=== PATIENT | female | born 1995 | race Caucasian/White ===

== ENCOUNTER → 2020-06-22 | Outpatient (REF) | payer OTHER ==
[~2020-06-22] MED LIST: ACET50CA PO; BUTA1CAP PO; CYCL5TAB PO; PHEN-501 PO; REGL10TA6 PO; SULF1TAB93 PO; VENL150C43 PO
== END ==
LOC: M LAB REF 16:59
PROVIDERS: ATTEND Physician Assistant
DX: N39.0 Urinary tract infection, site not specified (principal)

== ENCOUNTER 2020-06-24 12:14 | Emergency (ER) | payer OTHER ==
[~2020-06-24] VITALS: Ht 170.2 cm; Wt 90.9 kg
[2020-06-24] MEDS ORDERED: diphenhydrAMINE 50MG/ML VIAL (J1200) IV STA (12:33)
[2020-06-24] MEDS ORDERED: SULF1TAB93 PO (12:37)
[2020-06-24] MEDS ORDERED: CYCL5TAB PO (12:37)
[2020-06-24] MEDS ORDERED: ACET50CA PO (12:37)
[2020-06-24] MEDS ORDERED: VENL150C43 PO (12:37)
[2020-06-24] MEDS ORDERED: PHEN-501 PO (12:37)
[2020-06-24] MEDS ORDERED: BUTA1CAP PO (12:37)
[2020-06-24] MEDS ORDERED: NS 1,000 ML IV ONE (12:45)
[2020-06-24] MEDS ORDERED: METOCLOPRAMIDE INJ 10MG/2ML VIAL (J2765 PER 1) IV ONE (12:45)
[2020-06-24] MEDS ORDERED: KETOROLAC 30 MG/ML 1ML VIAL IV ONE (12:45)
[2020-06-24] MEDS ORDERED: REGL10TA6 PO (13:49)
--- OUTSIDE RECORDS SUMMARY | 2020-06-24 13:54 | CCD | Continuity of Care Document ---
Author Author Jodie FRIEDMAN Organization Unknown Address [place] [address] Phone [phone] Care Team Providers Care Metal Spraying Machine Operator Name Role Phone Donya Dejesus D.O. AUTM [phone] Eduar Stanford AUTM [phone] [facility] AUTM Clark Mims MD AUTM [phone] Brigette Akhtar NP AUTM [phone] Problems Active Problems Provider Date Bipolar disorder SOPHIE Moreno Onset: 03/10/2020 Benign intracranial hypertension SOPHIE Moreno Onset: 03/10/2020 Social History Type Date Description Comments Sex Unknown ETOH Use Denies alcohol use Tobacco Use Start: Unknown Patient has never smoked Recreational Drug Use Denies Drug Use Sun Exposure Uses sunscreen Seat Belt/Car Seat Always uses seat belt Allergies, Adverse Reactions, Alerts Active Allergies Reaction Severity Comments Date Penicillins Hives 03/01/2020 Sumatriptan Hives, Nausea, headache 02/03 Amoxicillin 03/10/2020 Medications Active Medications SIG Qnty Indications Ordering Provide r Date Bactrim DS 800-160mg Tablets take one tablet by mouth every 12 hours for seven days 14tabs N39.0 Cesai HemphillOGurpreet 06/22/2020 Phenazopyridine HCL 200mg Tablets take one tablet by mouth every 8 hours for three days 9tabs N39.0 Cesia HemphillO. 06/22/2020 Venlafaxine HCL ER 150mg Caps ER 2 4HR 1 by mouth every day 90caps F31.9 Winifred Hemphill.O. 05/08 Acetazolamide ER 500mg Caps ER 12H R 4 tabs every 12 hrs as needed start 24-48 hrs before ascent, continue for 48 hrs at high altitude, longer if necessary Unknown Fioricet 50-300-40mg Capsules take one capsule every four hours by mouth as needed for headache. 42caps Winifred Hemphill.O. History Medications Ajovy 225mg/1.5ML Solution Auto-In ject one injector once a month in subcutaneous tissue 4.5ml G43.009 Winifred Hemphill.O. 04/06/2020 - 05/08/2020 Venlafaxine HCL 75mg Tablets 1 by mouth every day 90tabs F31.9 Winifred Hemphill.O. 04/06 - 05/08/2020 Amitriptyline HCL 25mg Tablets one tablet daily at bedtime 90tabs G93.2 Winifred Hemphill.O. 11/0 10/2019 - 04/06/2020 Venlafaxine HCL ER 37.5mg Caps ER 24HR 1 by mouth every day 90caps F31.9 Winifred Hemphill.O. - 04/06/2020 Immunizations Description No Information Available Vital Signs Date Vital Result Comment 06/22/2020 10:36am BP Systolic 124 mmHg BP Diastolic 74 mmHg Height 66.5 inches 5'6.50" Weight 211.00 lb BMI (Body Mass Index) 33.5 kg/m2 Heart Rate 93 /min Respiratory Rate 18 /min Body Temperature 98.8 F O2 % BldC Oximetry 98 % Taylor Body Weight 142 lb 05/08/2020 8:28am BP Systolic 122 mmHg BP Diastolic 72 mmHg Height 66.5 inches 5'6.50" Weight 203.25 lb BMI (Body Mass Index) 32.3 kg/m2 Heart Rate 95 /min Respiratory Rate 18 /min Body Temperature 98.9 F O2 % BldC Oximetry 99 % Taylor Body Weight 142 lb Results Test Acquired Date Facility Test Result H/L Range Note Inhouse Ua 06/22/2020 Inhouse Inhouse Leukocytes +++ Inhouse Nitrite neg Inhouse Urobilinogen + Inhouse Protein + Inhouse PH 7 Inhouse Hemoglobin neg Inhouse Specific [place] 1.010 Inhouse Ketones neg Inhouse Bilirubin neg Inhouse Glucose neg Laboratory test finding 06/22/2020 [place] [address] [phone] Urine Culture FULL REPORT IN L <SEE NOTE> Normal 1 1 FULL REPORT IN LAB NOTES (eC W and Medent). NO GROWTH CLINICAL SIGNIFICANCE 1 ORGANISM Procedures Description No Information Available Medical Devices Description No Information Available Encounters Type Date Location Provider Dx Diagnosis Office Visit 06/22/2020 10:20a [facility] SOPHIE Moreno N39.0 Urinary tract infection, sit e not specified Office Visit 05/08/2020 8:30a [facility] SOPHIE Moreno G93.2 Benign intracranial hyperten charanjit F31.9 Bipolar disorder, unspecifie d G43.009 Migraine w/o aura, not intra ctable, w/o status migrainosus L72.0 Epidermal cyst Office Visit 04/06/2020 10:20a [facility] SOPHIE Moreno G93.2 Benign intracranial hyperten charanjit F31.9 Bipolar disorder, unspecifie d G43.009 Migraine w/o aura, not intra ctable, w/o status migrainosus Office Visit 03/10/2020 9:40a [facility] SOPHIE Moreno G93.2 Benign intracranial hyperten charanjit F31.9 Bipolar disorder, unspecifie d Assessments Date Code Description Provider 06/22/2020 N39.0 Urinary tract infection, site no t specified SOPHIE Moreno 05/08/2020 G93.2 Benign intracranial hypertension SOPHIE Moreno 05/08/2020 F31.9 Bipolar disorder, unspecified [place] SOPHIE Gan 05/08/2020 G43.009 Migraine without aur a, not intractable, without status migrainosus SOPHIE Moreno 05/08/2020 L72.0 Epidermal cyst SOPHIE Moreno 04/06/2020 G93.2 Benign intracranial hypertension SOPHIE Moreno 04/06/2020 F31.9 Bipolar disorder, unspecified SOPHIE Moise 04/06/2020 G43.009 Migraine without aur a, not intractable, without status migrainosus SOPHIE Moreno 03/10/2020 G93.2 Benign intracranial hypertension SOPHIE Moreno 03/10/2020 F31.9 Bipolar disorder, unspecified SOPHIE Moise Plan of Treatment Future Appointment(s):* 08/07/2020 10:20 am - SOPHIE Moreno at [facility] Functional Status Description No Information Available Mental Status Description No Information Available Referrals Refer to Reason for Referral Status Appt Date Brigette Akhtar NP epidermal cysts which are in flamed to bilateral shoulders which are painful and she would like removed. She would like routine surveillance of moles as well. Closed [facility] [address], [address] [facility] [address] [place], [place] [id number] [phone] [facility]'s [place] dependant wi th history of Bipolar type one and having increased depression. looking to establish care. Sent [address] [place] [address] [id number] [phone] Clark Mims MD Jodie was diagnosed with be nign intracranial hypertension in 03/18/29 while in [place]. She had two failed LP to reduce intracranial hypertension while in [place], even with Fluoroscopy. She had papilledema in the right eye and has been left with a chronic right visual disturbance reported a peripheral black spots, light sensitivity and generalized cloudiness. Looking to establish care. Closed 03/22/2020 [facility] [address], [address] [place] [address] [phone] Eduar Stanford O., MD Jodie was diagnosed with be nign intracranial hypertension in 03/18/29 while in [place]. She had two failed LP to reduce intracranial hypertension while in [place], even with Fluoroscopy. She had pa pilledema in the right eye and has been left with a chronic right visual disturbance reported a peripheral black spots, light sensitivity and generalized cloudiness. Closed 04/20/2020 [facility] [address] [place] [address] [phone]
--- OUTSIDE RECORDS SUMMARY | 2020-06-24 13:55 | CCD | Continuity of Care Document ---
Author Author Jodie AWAD [facility] Organization Unknown Address [address] [place] [address] Phone [phone] Problems Description No Information Available Social History Type Date Description Comments Sex Unknown Allergies, Adverse Reactions, Alerts Description No Information Available Medications Description No Information Available Immunizations Description No Information Available Vital Signs Description No Information Available Results Description No Information Available Procedures Date Code Description Status 04/21/2020 40237 Psychiatric Diagnostic Evaluatio n Completed Medical Devices Description No Information Available Encounters Description No Information Available Assessments Date Code Description Provider 04/21/2020 F33.9 Major depressive disorder, recur rent, unspecified Sadie Awad LMSW 04/21/2020 F41.9 Anxiety disorder, unspecified Br malgorzata Awad LMSW Plan of Treatment No Information Available Functional Status Description No Information Available Mental Status Description No Information Available Referrals Description No Information Available
--- OUTSIDE RECORDS SUMMARY | 2020-06-24 13:55 | CCD | Continuity of Care Document ---
Author Author Jodie TRAORE [facility] Organization Unknown Address [address] [address] Phone [phone] Problems Description No Information Available Social History Type Date Description Comments Sex Unknown Allergies, Adverse Reactions, Alerts Description No Information Available Medications Description No Information Available Immunizations Description No Information Available Vital Signs Description No Information Available Results Description No Information Available Procedures Date Code Description Status 04/21/2020 80941 Psychiatric Diagnostic Evaluatio n Completed Medical Devices Description No Information Available Encounters Description No Information Available Assessments Date Code Description Provider 04/21/2020 F33.9 Major depressive disorder, recur rent, unspecified Sadie Contreras LMSW 04/21/2020 F41.9 Anxiety disorder, unspecified Br malgorzata Contreras LMSW Plan of Treatment Future Appointment(s):* 05/22/2020 2:00 pm - Fabiana Hernandez RN at [facility] * 06/12/2020 2:00 pm - NEHA Hull at [facility] * 05/29/2020 4:00 pm - NEHA Hull at [facility] Functional Status Description No Information Available Mental Status Description No Information Available Referrals Description No Information Available
--- OUTSIDE RECORDS SUMMARY | 2020-06-24 13:55 | CCD | Continuity of Care Document ---
Author Author Jodie WELLS M.D. Organization Unknown Address [address] [place] [address] Phone [phone] Care Team Providers Care Branch Service Specialist Name Role Phone Donya Dejesus DO AUTM [phone] Problems Description No Information Available Social History Type Date Description Comments Sex Unknown Allergies, Adverse Reactions, Alerts Description No Information Available Medications Active Medications SIG Qnty Indications Ordering Provide r Date Emgality 120mg/ml Solution Auto-In ject 2 injection (at same time) subcutaneous x 1 month; then 1 injection monthly 2ml Yazimn Wells M.D. 05/18/2020 History Medications Emgality (300 MG Dose) 100mg/ml Soln Prefill Syringe Yazmin Wells M.D. 1 - 05/18/2020 Immunizations Description No Information Available Vital Signs Description No Information Available Results Description No Information Available Procedures Date Code Description Status 05/26/2020 08811 Magnetic Resonance Angiogtaphy H ead W/O Contrast Material(S) Completed 05/26/2020 85604 Magnetic Resonance Angiogtaphy H ead W/O Contrast Material(S) Completed 05/09/2020 85209 Nerve Conduction 13+ Studies Com pleted 05/09/2020 88864 Needle Electromyogra phy Non Extremity Done With Nerve Conduction Completed 05/09/2020 32375 Needle Electromyography Complete , Five Or More Muscles Studied Completed 05/09/2020 19766 Needle Electromyography Complete , Five Or More Muscles Studied Completed 04/24/2020 59635 MRI Spine Cervical W/O Contrast Completed 04/24/2020 69510 MRI Spine Cervical W/O Contrast Completed 04/24/2020 12529 MRI Brain W/O Contrast Completed 04/24/2020 06751 MRI Brain W/O Contrast Completed 04/24/2020 52781 Magnetic Resonance Angiography N nav W/O Contrast Materials Completed 04/24/2020 93359 Magnetic Resonance Angiography N nav W/O Contrast Materials Completed 04/24/2020 98475 Magnetic Resonance Angiogtaphy H ead W/O Contrast Material(S) Completed 04/24/2020 75856 Magnetic Resonance Angiogtaphy H ead W/O Contrast Material(S) Completed Medical Devices Description No Information Available Encounters Type Date Location Provider Dx Diagnosis Office Visit 05/18/2020 9:30a [place] M.[place]. R42 Dizziness and giddiness G43.809 Other migraine, not intracta ble, without status migrainosus I95.1 Orthostatic hypotension G93.2 Benign intracranial hyperten charanjit H53.8 Other visual disturbances Office Visit 04/20/2020 12:30p [place] M.D. R42 Dizziness and giddiness G47.00 Insomnia, unspecified G43.809 Other migraine, not intracta ble, without status migrainosus M54.2 Cervicalgia R20.2 Paresthesia of skin G93.2 Benign intracranial hyperten charanjit H53.8 Other visual disturbances M62.9 Disorder of muscle, unspecif ied Assessments Date Code Description Provider 05/26/2020 R42 Dizziness and giddiness Tiffanie Mora M.D. 05/26/2020 R42 Dizziness and giddiness MRI 05/18/2020 R42 Dizziness and giddiness Yazmin amezcua M.D. 05/18/2020 G43.809 Other migraine, not intractable, without status migrainosus Yazmin Wells M.D. 05/18/2020 I95.1 Orthostatic hypotension Yazmin amezcua M.D. 05/18/2020 G93.2 Benign intracranial hypertension Yazmin Wells M.D. 05/18/2020 H53.8 Other visual disturbances Yazmin Wells M.D. 05/09/2020 G56.03 Carpal tunnel syndrome, bilatera l upper limbs Tiffanie Wells M.D. 05/09/2020 M54.2 Cervicalgia Tiffanie Russell, M.D . 05/09/2020 R20.2 Paresthesia of skin Tiffanie Russell, M.D. 05/09/2020 G56.01 Carpal tunnel syndrome, right up per limb Tiffanie Russell, M.D. 05/09/2020 G56.02 Carpal tunnel syndrome, left upp er limb Tiffanie Russell, M.D. 04/24/2020 G43.809 Other migraine, not intractable, without status migrainosus Tiffanie Russell, M.D. 04/24/2020 G43.809 Other migraine, not intractable, without status migrainosus MRI 04/24/2020 M54.2 Cervicalgia Tiffanie Russell, M.D . 04/24/2020 M54.2 Cervicalgia MRI 04/24/2020 R42 Dizziness and giddiness Tiffanie La tif, M.D. 04/24/2020 R42 Dizziness and giddiness MRI 04/24/2020 H53.8 Other visual disturbances Tiffanie Russell, M.D. 04/24/2020 H53.8 Other visual disturbances MRI 04/20/2020 R42 Dizziness and giddiness Yazmin L seven, M.D. 04/20/2020 G47.00 Insomnia, unspecified Yazmin Lat if, M.D. 04/20/2020 G43.809 Other migraine, not intractable, without status migrainosus Yazmin Russell, M.D. 04/20/2020 M54.2 Cervicalgia Yazmin Russell, M. D. 04/20/2020 R20.2 Paresthesia of skin Yazmin Russell , M.D. 04/20/2020 G93.2 Benign intracranial hypertension Yazmin Russell, M.D. 04/20/2020 H53.8 Other visual disturbances Yazmin Russell, M.D. 04/20/2020 M62.9 Disorder of muscle, unspecified Yazmin Wells M.D. Plan of Treatment Future Appointment(s):* 07/20/2020 8:45 am - Yazmin Wells M.D. at Main office - [place] Functional Status Description No Information Available Mental Status Description No Information Available Referrals Refer to Dr Reason for Referral Status Appt Date Tristin Azevedo M.D. LING - PSEUDOTUMOR CEREBRI Created [facility] Neuro-Ophthalmology Dept. Of Neurology-[address] [facility], [place] [address] [phone] Created
--- OUTSIDE RECORDS SUMMARY | 2020-06-24 13:55 | CCD | Continuity of Care Document ---
Author Author Jodie MILLIGAN Organization Unknown Address [address] [place] [address] Phone [phone] Care Team Providers Care Cardiology Nurse Practitioner Name Role Phone Donya Dejesus DO AUTM Problems Description No Information Available Social History Type Date Description Comments Sex Unknown Allergies, Adverse Reactions, Alerts Description No Information Available Medications Active Medications SIG Qnty Indications Ordering Provide r Date Emgality 120mg/ml Solution Auto-In ject 2 injection (at same time) subcutaneous x 1 month; then 1 injection monthly 2ml Yazmin Wells M.D. 05/18/2020 History Medications Emgality (300 MG Dose) 100mg/ml Soln Prefill Syringe Yazmin Wells M.D. 1 - 05/18/2020 Immunizations Description No Information Available Vital Signs Description No Information Available Results Description No Information Available Procedures Date Code Description Status 05/09/2020 68407 Nerve Conduction 13+ Studies Com pleted 05/09/2020 31738 Needle Electromyogra phy Non Extremity Done With Nerve Conduction Completed 05/09/2020 24585 Needle Electromyography Complete , Five Or More Muscles Studied Completed 05/09/2020 88529 Needle Electromyography Complete , Five Or More Muscles Studied Completed 04/24/2020 21837 MRI Spine Cervical W/O Contrast Completed 04/24/2020 60717 MRI Spine Cervical W/O Contrast Completed 04/24/2020 33404 MRI Brain W/O Contrast Completed 04/24/2020 47848 MRI Brain W/O Contrast Completed 04/24/2020 98509 Magnetic Resonance Angiography N nav W/O Contrast Materials Completed 04/24/2020 47262 Magnetic Resonance Angiography N nav W/O Contrast Materials Completed 04/24/2020 54251 Magnetic Resonance Angiogtaphy H ead W/O Contrast Material(S) Completed 04/24/2020 69366 Magnetic Resonance Angiogtaphy H ead W/O Contrast Material(S) Completed Medical Devices Description No Information Available Encounters Type Date Location Provider Dx Diagnosis Office Visit 05/18/2020 9:30a Main office - [place] Yazmin Wells M.D. R42 Dizziness and giddiness G43.809 Other migraine, not intracta ble, without status migrainosus I95.1 Orthostatic hypotension G93.2 Benign intracranial hyperten charanjit H53.8 Other visual disturbances Office Visit 04/20/2020 12:30p Main office - [place] Yazmin Wells M.D. R42 Dizziness and giddiness G47.00 Insomnia, unspecified G43.809 Other migraine, not intracta ble, without status migrainosus M54.2 Cervicalgia R20.2 Paresthesia of skin G93.2 Benign intracranial hyperten charanjit H53.8 Other visual disturbances M62.9 Disorder of muscle, unspecif ied Assessments Date Code Description Provider 05/18/2020 R42 Dizziness and giddiness Yazmin L seven, M.DGurpreet 05/18/2020 G43.809 Other migraine, not intractable, without status migrainosus Yazmin Russell, M.DGurpreet 05/18/2020 I95.1 Orthostatic hypotension Yazmin L seven, M.D. 05/18/2020 G93.2 Benign intracranial hypertension Yazmin Russell, M.DGurpreet 05/18/2020 H53.8 Other visual disturbances Yazmin Russell, M.D. 05/09/2020 G56.03 Carpal tunnel syndrome, bilatera l upper limbs Tiffanie Russell, M.D. 05/09/2020 M54.2 Cervicalgia Tiffanie Russell, M.D [...] M.D. 04/20/2020 M54.2 Cervicalgia Yazmin Russell, M. DGurpreet 04/20/2020 R20.2 Paresthesia of skin Yazmin Russell , M.DGurpreet 04/20/2020 G93.2 Benign intracranial hypertension Yazmin Russell, M.DGurpreet 04/20/2020 H53.8 Other visual disturbances Yazmin Russell, M.D. 04/20/2020 M62.9 Disorder of muscle, unspecified Yazmin Wells M.D. Plan of Treatment Future Appointment(s):* 07/20/2020 8:45 am - Yazmin Wells M.D. at Main office [facility] Functional Status Description No Information Available Mental Status Description No Information Available Referrals Refer to Reason for Referral Status Appt Date Tristin Azevedo M.D. LING - PSEUDOTUMOR CEREBRI Created [facility] Neuro-Ophthalmology Dept. Of Neurology-[address] [place] [address] [phone] Created
--- OUTSIDE RECORDS SUMMARY | 2020-06-24 13:55 | CCD | Continuity of Care Document ---
Author Author Jodie WELLS M.D. Organization Unknown Address [address] [place] [address] Phone [phone] Care Team Providers Care Stage Settings Painter Name Role Phone Donya Dejesus DO AUTM [...] Available Procedures Date Code Description Status 05/09/2020 37430 Nerve Conduction 13+ Studies Com pleted 05/09/2020 58785 Needle Electromyogra phy Non Extremity Done With Nerve Conduction Completed 05/09/2020 97853 Needle Electromyography Complete , Five Or More Muscles Studied Completed 05/09/2020 76601 Needle Electromyography Complete , Five Or More Muscles Studied Completed 04/24/2020 02675 MRI Spine Cervical W/O Contrast Completed 04/24/2020 71163 MRI Spine Cervical W/O Contrast Completed 04/24/2020 25577 MRI Brain W/O Contrast Completed 04/24/2020 71994 MRI Brain W/O Contrast Completed 04/24/2020 47840 Magnetic Resonance Angiography N nav W/O Contrast Materials Completed 04/24/2020 57142 Magnetic Resonance Angiography N nav W/O Contrast Materials Completed 04/24/2020 63506 Magnetic Resonance Angiogtaphy H ead W/O Contrast Material(S) Completed 04/24/2020 05182 Magnetic Resonance Angiogtaphy H ead W/O Contrast Material(S) Completed Medical Devices Description No Information Available Encounters Type Date Location Provider Dx Diagnosis Office Visit 05/18/2020 9:30a Main office - [place] Yazmin Wells M.D. R42 Dizziness and giddiness G43.809 Other migraine, not intracta ble, without status migrainosus I95.1 Orthostatic hypotension G93.2 Benign intracranial hyperten charanjit H53.8 Other visual disturbances Office Visit 04/20/2020 12:30p Main office - [place] Yazmin Wells M.D. R42 Dizziness and giddiness [...] 05/18/2020 I95.1 Orthostatic hypotension Yazmin L seven, M.DGurpreet 05/18/2020 G93.2 Benign intracranial hypertension Yazmin Russell, M.DGurpreet 05/18/2020 H53.8 Other visual disturbances Yazmin Russell, M.DGurpreet 05/09/2020 G56.03 Carpal tunnel syndrome, bilatera l upper limbs Tiffanie Russell, M.DGurpreet 05/09/2020 M54.2 Cervicalgia Tiffanie Russell, M.D Gurpreet 05/09/2020 R20.2 Paresthesia of skin Tiffanie Russell, M.DGurpreet 05/09/2020 G56.01 Carpal tunnel syndrome, right up per limb Tiffanie Russell, M.DGurpreet 05/09/2020 G56.02 Carpal tunnel syndrome, left upp er limb Tiffanie Russell, M.DGurpreet 04/24/2020 G43.809 Other migraine, not intractable, without [...] Yazmin Wells M.D. at Main office - [place] Functional Status Description No Information Available Mental Status Description No Information Available Referrals Refer to Dr Reason for Referral Status Appt Date Tristin Azevedo M.D. LING - PSEUDOTUMOR CEREBRI Created [facility] Neuro-Ophthalmology Dept. Of Neurology-[address] [place] [address] [phone] Created
--- OUTSIDE RECORDS SUMMARY | 2020-06-24 13:55 | CCD | Continuity of Care Document ---
Author Author Jodie RAUSCH RN Organization Unknown Address [address] [place] [address] Phone [phone] Care Team Providers Care Incident Response Specialist Name Role Phone Family Medicine [facility] AUTM Iza vailable Problems Description No Information Available Social History Type Date Description Comments Sex Unknown Allergies, Adverse Reactions, Alerts Active Allergies Reaction Severity Comments Date Penicillin G 05/26/2020 Amoxicillin 05/26/2020 Sumatriptan 05/26/2020 NKEA 05/26/2020 Lactose (Intolerance) 2020 Medications Active Medications SIG Qnty Indications Ordering Provide r Date Venlafaxine HCL ER 150mg Caps ER 24HR Unknown 05/09/2020 Butalbital/Acetaminophen/Caffeine 50-300-40mg Capsules Unknown 02/29/2020 Acetazolamide ER 500mg Caps ER 12H R 2 caps by mouth twice a day Unknown Tylenol Extra Strength 500mg Tablets Unknown History Medications Venlafaxine HCL 75mg Tablets Unknown 04/06/2020 - 05/05/2020 Amitriptyline HCL 25mg Tablets Unknown 03/10/2020 - 05/05/2020 Venlafaxine HCL ER 37.5mg Caps ER 24HR Unknown 03/10/2020 - 021 Immunizations Description No Information Available Vital Signs Date Vital Result Comment 05/26/2020 11:04am BP Systolic Sitting 127 mmHg BP Diastolic Sitting 83 mmHg Heart Rate 90 /min Body Temperature 98.9 F Oral Respiratory Rate 18 /min O2 % BldC Oximetry 100 % Weight 199.38 lb Weight 90.436 kg Height 67 inches 5'7" BMI (Body Mass Index) 31.2 kg/m2 BSA (Body Surface Area) 2.02 m2 Results Description No Information Available Procedures Date Code Description Status 04/21/2020 13167 Psychiatric Diagnostic Evaluatio n Completed Medical Devices Description No Information Available Encounters Description No Information Available Assessments Date Code Description Provider 05/16/2020 F33.9 Major depressive disorder, recur rent, unspecified Jeanine Wynn, [place] 05/16/2020 F41.9 Anxiety disorder, unspecified Th dave Wynn, [place] 04/21/2020 F33.9 Major depressive disorder, recur rent, unspecified Sadie Contreras LMSW 04/21/2020 F41.9 Anxiety disorder, unspecified Br malgorzata Contreras LMSW Plan of Treatment Future Appointment(s):* 06/27/2020 11:00 am - Wlofgang Oliva PA-C at [facility] * 06/26/2020 12:00 pm - NEHA Hull at [facility] Functional Status Description No Information Available Mental Status Description No Information Available Referrals Description No Information Available
--- OUTSIDE RECORDS SUMMARY | 2020-06-24 13:55 | CCD | Continuity of Care Document ---
Author Author Jodie WELLS M.D. Organization Unknown Address [address] [place] [address] Phone [phone] Care Team Providers Care Fermenter Champagne Name Role Phone Marek Vega AUTM [phone] Donya Dejesus DO AUTM Problems Description No Information Available Social History Type Date Description Comments Sex Unknown Allergies, Adverse Reactions, Alerts Description No Information Available Medications Description No Information Available Immunizations Description No Information Available Vital Signs Description No Information Available Results Description No Information Available Procedures Date Code Description Status 04/24/2020 11161 MRI Spine Cervical W/O Contrast Completed 04/24/2020 08696 MRI Spine Cervical W/O Contrast Completed 04/24/2020 71234 MRI Brain W/O Contrast Completed 04/24/2020 09178 MRI Brain W/O Contrast Completed 04/24/2020 06185 Magnetic Resonance Angiography N nav W/O Contrast Materials Completed 04/24/2020 05807 Magnetic Resonance Angiography N nav W/O Contrast Materials Completed 04/24/2020 58828 Magnetic Resonance Angiogtaphy H ead W/O Contrast Material(S) Completed 04/24/2020 78592 Magnetic Resonance Angiogtaphy H ead W/O Contrast Material(S) Completed Medical Devices Description No Information Available Encounters Type Date Location Provider Dx Diagnosis Office Visit 04/20/2020 12:30p [place] M.[place] R42 Dizziness and giddiness G47.00 Insomnia, unspecified G43.809 Other migraine, not intracta ble, without status migrainosus M54.2 Cervicalgia R20.2 Paresthesia of skin G93.2 Benign intracranial hyperten charanjit H53.8 Other visual disturbances M62.9 Disorder of muscle, unspecif ied Assessments Date Code Description Provider 04/24/2020 G43.809 Other migraine, not intractable, without [...] - Yazmin Wells M.D. at Main office [facility] * 05/09/2020 9:00 am - Tiffanie Wells M.D. at [facility] office [facility] Functional Status Description No Information Available Mental Status Description No Information Available Referrals Refer to Reason for Referral Status Appt Date Created
--- OUTSIDE RECORDS SUMMARY | 2020-06-24 13:55 | CCD | Continuity of Care Document ---
Author Author Jodie WELLS M.D. Organization Unknown Address [address] [place] [address] Phone [phone] Care Team Providers Care Mechanical Maintenance Instructor Name Role Phone Marek Vega AUTM [phone] Donya Dejesus DO AUTM Problems Description No Information Available Social History Type Date Description Comments Sex Unknown Allergies, Adverse Reactions, Alerts Description No Information Available Medications Description No Information Available Immunizations Description No Information Available Vital Signs Description No Information Available Results Description No Information Available Procedures Date Code Description Status 04/24/2020 56254 MRI Spine Cervical W/O Contrast Completed 04/24/2020 83305 MRI Spine Cervical W/O Contrast Completed 04/24/2020 44687 MRI Brain W/O Contrast Completed 04/24/2020 66291 MRI Brain W/O Contrast Completed 04/24/2020 36947 Magnetic Resonance Angiography N nav W/O Contrast Materials Completed 04/24/2020 98256 Magnetic Resonance Angiography N nav W/O Contrast Materials Completed 04/24/2020 60355 Magnetic Resonance Angiogtaphy H ead W/O Contrast Material(S) Completed 04/24/2020 15233 Magnetic Resonance Angiogtaphy H ead W/O Contrast Material(S) Completed Medical Devices Description No Information Available Encounters Type Date Location Provider Dx Diagnosis Office Visit 04/20/2020 12:30p [place] R42 Dizziness and giddiness G47.00 [...] Yazmin Wells M.D. at Main office - [place] Functional Status Description No Information Available Mental Status Description No Information Available Referrals Refer to Reason for Referral Status Appt Date Created
--- OUTSIDE RECORDS SUMMARY | 2020-06-24 13:55 | CCD | Continuity of Care Document ---
Author Jodie Miller Organization Unknown Address [address] [place] [address] Phone [phone] Care Team Providers Care Brazing Machine Setter Name Role Phone Marek Vega AUTM [phone] Donya Dejesus DO AUTM Problems Description No Information Available Social History Type Date Description Comments Sex Unknown Allergies, Adverse Reactions, Alerts Description No Information Available Medications Description No Information Available Immunizations Description No Information Available Vital Signs Description No Information Available Results Description No Information Available Procedures Description No Information Available Medical Devices Description No Information Available Encounters Type Date Location Provider Dx Diagnosis Office Visit 04/20/2020 12:30p Main office - [place] Yazmin Wells M.D. R42 Dizziness and giddiness G47.00 Insomnia, unspecified G43.809 Other migraine, not intracta ble, without status migrainosus M54.2 Cervicalgia R20.2 Paresthesia of skin G93.2 Benign intracranial hyperten charanjit H53.8 Other visual disturbances M62.9 Disorder of muscle, unspecif ied Assessments Date Code Description Provider 04/20/2020 R42 Dizziness and giddiness Yazmin L seven, M.DGurpreet 04/20/2020 G47.00 Insomnia, unspecified Yazmin Lat if, M.DGurpreet 04/20/2020 G43.809 Other migraine, not intractable, without status migrainosus Yazmin Russell, M.D. 04/20/2020 M54.2 Cervicalgia Yazmin Russell M. D. 04/20/2020 R20.2 Paresthesia of skin Yazmin Russell , M.DGurpreet 04/20/2020 G93.2 Benign intracranial hypertension Yazmin Russell, MJosselin 04/20/2020 H53.8 Other visual disturbances Yazmin Wells M.D. 04/20/2020 M62.9 Disorder of muscle, unspecified Yazmin Wells M.D. Plan of Treatment Future Appointment(s):* 07/20/2020 8:45 am - Yazmin Wells M.D. at [facility] * 05/09/2020 9:00 am - Tiffanie Wells M.D. at [facility] Functional Status Description No Information Available Mental Status Description No Information Available Referrals Description No Information Available
--- OUTSIDE RECORDS SUMMARY | 2020-06-24 13:55 | CCD | Continuity of Care Document ---
Author Author Jodie FRIEDMAN Organization Unknown [place] [address] Phone [phone] Care Team Providers Care Vp Site Name Role Phone Donya Dejesus D.O. AUTM Eduar Stanford AUTM [phone] [facility] AUTM Clark Mims MD AUTM [phone] Brigette Akhtar NP AUTM [phone] Problems Active Problems Provider Date Bipolar disorder [...] Date Venlafaxine HCL ER 150mg Caps ER 2 4HR 1 by mouth every day 90caps F31.9 Donya Dejesus D.O. 05/08 Acetazolamide ER 500mg Caps ER 12H R 4 tabs every 12 hrs as needed start 24-48 hrs before ascent, continue for 48 hrs at high altitude, longer if necessary Unknown Fioricet 50-300-40mg Capsules take one capsule every four hours by mouth as needed for headache. 42caps Cesia HemphillO. History Medications Ajovy 225mg/1.5ML Solution Auto-In ject one injector once a month in subcutaneous tissue 4.5ml G43.009 Cesia HemphillOGurpreet 04/06/2020 - 05/08/2020 Venlafaxine HCL 75mg Tablets 1 by mouth every day 90tabs F31.9 Winifred Hemphill.OGurpreet 04/06 - 05/08/2020 Amitriptyline HCL 25mg Tablets one tablet daily at bedtime 90tabs G93.2 Donya Dejesus D.O. 10/2019 - 04/06/2020 Venlafaxine HCL ER 37.5mg Caps ER 24HR 1 by mouth every day 90caps F31.9 Cesia HemphillOGurpreet - 04/06/2020 Immunizations Description No Information Available Vital Signs Date Vital Result Comment 05/08/2020 8:28am BP Systolic 122 mmHg BP Diastolic 72 mmHg Height 66.5 inches 5'6.50" Weight 203.25 lb BMI (Body Mass Index) 32.3 kg/m2 Heart Rate 95 /min Respiratory Rate 18 /min Body Temperature 98.9 F O2 % BldC Oximetry 99 % [place] Body Weight 142 lb 04/06/2020 10:34am BP Systolic 120 mmHg BP Diastolic 64 mmHg Height 66.5 inches 5'6.50" Weight 207.12 lb BMI (Body Mass Index) 32.9 kg/m2 Heart Rate 97 /min Respiratory Rate 18 /min Body Temperature 98.4 F O2 % BldC Oximetry 99 % [place] Body Weight 142 lb Results Description No Information Available Procedures Description No Information Available Medical Devices Description No Information Available Encounters Type Date Location Provider Dx Diagnosis Office Visit 05/08/2020 8:30a [facility] [place]HIE Lorenzana G93.2 Benign intracranial hyperten charanjit F31.9 Bipolar disorder, unspecifie d G43.009 Migraine w/o aura, not intra ctable, w/o status migrainosus L72.0 Epidermal cyst Office Visit 04/06/2020 10:20a [facility] SOPHIE Moreno G93.2 Benign intracranial hyperten charanjit F31.9 Bipolar disorder, unspecifie d G43.009 Migraine w/o aura, not intra ctable, w/o status migrainosus Office Visit 03/10/2020 9:40a [facility] SOPHIE Moreno G93.2 Benign intracranial hyperten charanjit F31.9 Bipolar disorder, unspecifie d Assessments Date Code Description Provider 05/08/2020 G93.2 Benign intracranial hypertension SOPHIE Moreno 05/08/2020 F31.9 Bipolar disorder, unspecified SOPHIE Moise 05/08/2020 G43.009 Migraine without aur a, not intractable, without status migrainosus SOPHIE Moreno 05/08/2020 L72.0 Epidermal cyst SOPHIE Moreno 04/06/2020 G93.2 Benign intracranial hypertension SPOHIE Moreno 04/06/2020 F31.9 Bipolar disorder, unspecified SOPHIE Moise 04/06/2020 G43.009 Migraine without aur a, not intractable, without status migrainosus SOPHIE Moreno 03/10/2020 G93.2 Benign intracranial hypertension SOPHIE Moreno 03/10/2020 F31.9 Bipolar disorder, unspecified Nh SOPHIE Gan Plan of Treatment Future Appointment(s):* 08/07/2020 10:20 am - SOPHIE Moreno at [facility] Functional Status Description No Information Available Mental Status Description No Information Available Referrals Refer to Reason for Referral Status Appt Date Brigette Akhtar NP epidermal cysts which are in flamed to bilateral shoulders which are painful and she would like removed. She would like routine surveillance of moles as well. Sent [facility] [address], [address] [facility] [address] [place] [address] [phone] Eduar Stanford O., MD Jodie was diagnosed with be nign intracranial hypertension in 03/18/29 while in [place]. She had two failed LP to reduce intracranial hypertension while in [place], even with Fluoroscopy. She had pa pilledema in the right eye and has been left with a chronic right visual disturbance reported a peripheral black spots, light sensitivity and generalized cloudiness. Patient Notified 04/20/2020 [facility] [address] [place], [place] [id number] [phone] [facility]'s point dependant wi th history of Bipolar type one and having increased depression. looking to establish care. Sent [address] [place] [address] [phone] Clark Mims MD Jodie was diagnosed with be nign intracranial hypertension in 03/18/29 while in [place]. She had two failed LP to reduce intracranial hypertension while in [place], even with Fluoroscopy. She had papilledema in the right eye and has been left with a chronic right visual disturbance reported a peripheral black spots, light sensitivity and generalized cloudiness. Looking to establish care. Closed 03/22/2020 [facility] [address], [address] [place] [address] [phone]
--- OUTSIDE RECORDS SUMMARY | 2020-06-24 13:55 | CCD | Continuity of Care Document ---
Author Author Jodie FRIEDMAN Organization Unknown Address [place] [address] Phone [phone] Care Team Providers Care Concrete Pointer Name Role Phone Donya Dejesus D.O. AUTM [phone] Eduar Stanford AUTM [phone] [facility] AUTM Clark Mims MD AUTM [phone] Problems Active Problems Provider Date Bipolar disorder [...] SIG Qnty Indications Ordering Provide r Date Ajovy 225mg/1.5ML Solution Auto-In ject one injector once a month in subcutaneous tissue 4.5ml G43.009 Cesia HemphillOGurpreet 04/06/2020 Venlafaxine HCL 75mg Tablets 1 by mouth every day 90tabs F31.9 Cesia HemphillOGurpreet 04/06 Acetazolamide ER 500mg Caps ER 12H R 4 tabs every 12 hrs as needed start 24-48 hrs before ascent, continue for 48 hrs at high altitude, longer if necessary Unknown Fioricet 50-300-40mg Capsules take one capsule every four hours by mouth as needed for headache. 42caps Donya Dejesus D.O. History Medications Amitriptyline HCL 25mg Tablets one tablet daily at bedtime 90tabs G93.2 Cesia HemphillO. 110 10/2019 - 04/06/2020 Venlafaxine HCL ER 37.5mg Caps ER 24HR 1 by mouth every day 90caps F31.9 Cesia HemphillO. - 04/06/2020 Immunizations Description No Information Available Vital Signs Date Vital Result Comment 04/06/2020 10:34am BP Systolic 120 mmHg BP Diastolic 64 mmHg Height 66.5 inches 5'6.50" Weight 207.12 lb BMI (Body Mass Index) 32.9 kg/m2 Heart Rate 97 /min Respiratory Rate 18 /min Body Temperature 98.4 F O2 % BldC Oximetry 99 % [place] Body Weight 142 lb 03/10/2020 9:45am BP Systolic 116 mmHg BP Diastolic 64 mmHg Height 66.5 inches 5'6.50" Weight 202.12 lb BMI (Body Mass Index) 32.1 kg/m2 Heart Rate 73 /min Respiratory Rate 18 /min Body Temperature 98.5 F O2 % BldC Oximetry 97 % [place] Body Weight 142 lb Results Description No Information Available Procedures Description No Information Available Medical Devices Description No Information Available Encounters Type Date Location Provider Dx Diagnosis Office Visit 03/10/2020 9:40a Family [facility] SOPHIE Moreno G93.2 Benign intracranial hyperten charanjit F31.9 Bipolar disorder, unspecifie d Assessments Date Code Description Provider 04/06/2020 G93.2 Benign intracranial hypertension SOPHIE Moreno 04/06/2020 F31.9 Bipolar disorder, unspecified SOPHIE Moise 04/06/2020 G43.009 Migraine without aur a, not intractable, without status migrainosus SOPHIE Moreno 03/10/2020 G93.2 Benign intracranial hypertension SOPHIE Moreno 03/10/2020 F31.9 Bipolar disorder, unspecified SOPHIE Moise Plan of Treatment Future Appointment(s):* 05/08/2020 8:30 am - SOPHIE Moreno at [facility] 04/06/2020 - SOPHIE Moreno* G93.2 Benign intracranial hypertension* Comments:* Continue with Diamox but will discontinue Amitriptyline. Take Fioricet as needed for abortive care of headaches. * Follow up:* 1 month * F31.9 Bipolar disorder, unspecified* New Medication:* Venlafaxine HCL 75 mg - 1 by mouth every day * Comments:* [facility] We will increase your Effexor from 37.5 mg to 75 mg. * G43.009 Migraine without aura, not intractable, without status migrainosus* New Medication:* Ajovy 225 mg/1.5ML - one injector once a month in subcutaneous tissue * Comments:* Ajovy given today which is injected once a month for prevention of migraines. Functional Status Description No Information Available Mental Status Description No Information Available Referrals Refer to Reason for Referral Status Appt Date Eduar Stanford O., MD Jodie was diagnosed with be nign intracranial hypertension in 03/18/29 while in [place]. She had two failed LP to reduce intracranial hypertension while in [place], even with Fluoroscopy. She had pa pilledema in the right eye and has been left with a chronic right visual disturbance reported a peripheral black spots, light sensitivity and generalized cloudiness. Patient Notified 04/20/2020 [facility] [address] [place] [address] [phone] [facility]'s point dependant [facility] history of Bipolar type one and having increased depression. looking to establish care. Sent [address] [place] [address] [phone] Clark Mims MD Jodie was diagnosed with [...] cloudiness. Looking to establish care. Closed 03/22/[address], [address] [place] [id number] [phone]
--- OUTSIDE RECORDS SUMMARY | 2020-06-24 13:55 | CCD | Continuity of Care Document ---
Author Author Jodie MILLIGAN Organization Unknown [place] [address] Phone [phone] Care Team Providers Care Assistant Grocery Name Role Phone Donya Dejesus DO AUTM [...] Available Procedures Date Code Description Status 05/26/2020 26887 Magnetic Resonance Angiogtaphy H ead W/O Contrast Material(S) Completed 05/26/2020 46257 Magnetic Resonance Angiogtaphy H ead W/O Contrast Material(S) Completed 05/09/2020 76197 Nerve Conduction 13+ Studies Com pleted 05/09/2020 03740 Needle Electromyogra phy Non Extremity Done With Nerve Conduction Completed 05/09/2020 84039 Needle Electromyography Complete , Five Or More Muscles Studied Completed 05/09/2020 35355 Needle Electromyography Complete , Five Or More Muscles Studied Completed 04/24/2020 67025 MRI Spine Cervical W/O Contrast Completed 04/24/2020 71692 MRI Spine Cervical W/O Contrast Completed 04/24/2020 67743 MRI Brain W/O Contrast Completed 04/24/2020 04477 MRI Brain W/O Contrast Completed 04/24/2020 77679 Magnetic Resonance Angiography N nav W/O Contrast Materials Completed 04/24/2020 08210 Magnetic Resonance Angiography N nav W/O Contrast Materials Completed 04/24/2020 90059 Magnetic Resonance Angiogtaphy H ead W/O Contrast Material(S) Completed 04/24/2020 43746 Magnetic Resonance Angiogtaphy H ead W/O Contrast Material(S) Completed Medical Devices Description No Information Available Encounters Type Date Location Provider Dx Diagnosis Office Visit 05/18/2020 9:30a [place] R42 Dizziness and giddiness G43.809 Other migraine, not intracta ble, without status migrainosus I95.1 Orthostatic hypotension G93.2 Benign intracranial hyperten charanjit H53.8 Other visual disturbances Office Visit 04/20/2020 12:30p [place] M.[place] R42 Dizziness and giddiness G47.00 [...] limbs Tiffanie Wells M.D. 05/09/2020 M54.2 Cervicalgia David Jett 05/09/2020 R20.2 Paresthesia of skin Tiffanie Russell, [...] Yazmin Wells M.D. at Main office - [place] Functional Status Description No Information Available Mental Status Description No Information Available Referrals Refer to Dr Reason for Referral Status Appt Date Tristin Azevedo M.D. LING - PSEUDOTUMOR CEREBRI Created [facility] Neuro-Ophthalmology Dept. Of Neurology[facility] [facility] [place] [address] [phone] Created
--- OUTSIDE RECORDS SUMMARY | 2020-06-24 13:55 | CCD | Continuity of Care Document ---
Author Author Jodie FRIEDMAN Organization Unknown [place] [address] Phone [phone] Care Team Providers Care Kitchen Stewardess Name Role Phone Donya Dejesus D.O. AUTM Eduar Stanford AUTM [phone] [facility] AUTM Clark Mims MD AUTM [phone] Problems Active Problems Provider Date Bipolar disorder [...] headache. 42caps Donya Dejesus D.O. History Medications Ajovy 225mg/1.5ML Solution Auto-In ject one injector once a month in subcutaneous tissue 4.5ml G43.009 Cesia HemphillO. 04/06/2020 - 05/08/2020 Venlafaxine HCL 75mg Tablets 1 by mouth every day 90tabs F31.9 Cesia HemphillOGurpreet 04/06 - 05/08/2020 Amitriptyline HCL 25mg Tablets one tablet daily at bedtime 90tabs G93.2 Cesia HemphillOGurpreet 11/0 10/2019 - 04/06/2020 Venlafaxine HCL ER 37.5mg Caps ER 24HR 1 by mouth every day 90caps F31.9 Donya Dejesus D.O. - 04/06/2020 Immunizations Description No Information Available Vital Signs Date Vital Result Comment 05/08/2020 8:28am BP Systolic 122 mmHg BP Diastolic 72 mmHg Height 66.5 inches 5'6.50" Weight 203.25 lb BMI (Body Mass Index) 32.3 kg/m2 Heart Rate 95 /min Respiratory Rate 18 /min Body Temperature 98.9 F O2 % BldC Oximetry 99 % [place] Body Weight 142 lb 04/06/2020 10:34am BP Systolic 120 mmHg BP Diastolic 64 mmHg Height 66.5 inches 5'6.50" Weight 207.12 lb BMI (Body Mass Index) 32.9 kg/m2 Heart Rate 97 /min Respiratory Rate 18 /min Body Temperature 98.4 F O2 % BldC Oximetry 99 % [place] Body Weight 142 lb Results Description No Information Available Procedures Description No Information Available Medical Devices Description No Information Available Encounters Type Date Location Provider Dx Diagnosis Office Visit 04/06/2020 10:20a [facility] SOPHIE Lorenzana G93.2 Benign intracranial hyperten charanjit F31.9 Bipolar disorder, unspecifie d G43.009 Migraine w/o aura, not intra ctable, w/o status migrainosus Office Visit 03/10/2020 9:40a [facility] SOPHIE Lorenzana G93.2 Benign intracranial hyperten charanjit [...] 08/07/2020 10:20 am - SOPHIE Moreno at [facility] 05/08/2020 - SOPHIE Moreno* G93.2 Benign intracranial hypertension * F31.9 Bipolar disorder, unspecified* New Medication:* Venlafaxine HCL ER 150 mg - 1 by mouth every day * Follow up:* 3 months * G43.009 Migraine without aura, not intractable, without status migrainosus * L72.0 Epidermal cyst* Referral:* Brigette Akhtar NP, Nurse Practitioner Functional Status Description No Information Available Mental Status Description No Information Available Referrals Refer to Reason for Referral Status Appt Date Brigette Akhtar NP epidermal cysts which are in flamed to bilateral shoulders which are painful and she would like removed. She would like routine surveillance of moles as well. Created [facility] [address], [address] [facility] [address] [place] [address] [phone] Eduar Stanford O., MD Jodie was diagnosed with be nign intracranial hypertension in 03/18/29 while in [place]. She had two failed LP to reduce intracranial hypertension while in [place], even with Fluoroscopy. She had pa pilledema in the right eye and has been left with a chronic right visual disturbance reported a peripheral black spots, light sensitivity and generalized cloudiness. Patient Notified 04/20/2020 [facility] [address] [place], [place] [id number] [phone] [facility]'s point dependant wi th history of Bipolar type one and having increased depression. looking to establish care. Sent [address] [place] [address] [phone] Clark Mims MD Jodie was diagnosed with be nign intracranial hypertension in 03/18/29 while in [place]. She had two failed LP to reduce intracranial hypertension while in [place], even with Fluoroscopy. She had papilledema in the right eye and has been left with a chronic right visual disturbance reported a peripheral black spots, light sensitivity and generalized cloudiness. Looking to establish care. Closed 03/22/2020 [facility] [address], [address] [place] [address] [phone]
--- OUTSIDE RECORDS SUMMARY | 2020-06-24 13:55 | CCD | Continuity of Care Document ---
Author Author Jodie OLIVA PADillonC Organization Unknown Address [address] [address] Phone [phone] Care Team Providers Care Forest Patrolman Name Role Phone Family Medicine [facility] AUTM Iza vailable Problems Description No Information [...] BSA (Body Surface Area) 2.02 m2 Results Test Acquired Date Facility Test Result H/L Range Note Med[facility] Toxassure Select 13 05/26/2020 Nidia hayden Summary Report (Summary) FINAL 1, 2 PDF . 1 {DIAGNOSIS: F33.9 F41.9~{ME DICATIONS/DECLARED: ACETAZOLAMIDE,ACETAMINOPHEN~{PRESCRIPTION INFO: 2 TOXASSURE SELECT 13 (MW) Test Result Flag Units Drug Present and Declared for Prescription Verification Butalbital PRESENT EXPECTED Test Result Flag Units Ref Range Creatinine 28 mg/dL >=20 Declared Medications: The flagging and interpretation on this report are based on the following declared medications. Unexpected results may arise from inaccuracies in the declared medications. Note: The testing scope of this panel includes these medications: Butalbital (Fioricet) Note: The testing scope of this panel does not include following reported medications: Acetaminophen Acetaminophen (Fioricet) Acetazolamide Caffeine (Fioricet) Venlafaxine For clinical consultation, please call . Procedures Date Code Description Status 04/21/2020 74472 Psychiatric Diagnostic Evaluatio n Completed Medical Devices Description No Information Available Encounters Description No Information Available Assessments Date Code Description Provider 05/26/2020 F33.9 Major depressive disorder, recur rent, unspecified Fabiana Hernandez, RN 05/26/2020 F41.9 Anxiety disorder, unspecified An alberto Hernandez, RN 05/16/2020 F33.9 Major depressive disorder, recur rent, unspecified Jeanine Wynn, [facility] 05/16/2020 F41.9 Anxiety disorder, unspecified Julio Wynn, [facility] 04/21/2020 F33.9 Major depressive disorder, recur rent, unspecified Sadie Contreras, [facility] 04/21/2020 F41.9 Anxiety disorder, unspecified Br malgorzata Contreras [facility] Plan of Treatment Future Appointment(s):* 06/27/2020 11:00 am - Wolfgang Oliva PA-C at [facility] * 06/26/2020 12:00 pm - NEHA Hull at [facility] Functional Status Description No Information Available Mental Status Description No Information Available Referrals Description No Information Available
--- OUTSIDE RECORDS SUMMARY | 2020-06-24 13:55 | CCD | Continuity of Care Document ---
Author Author Jodie FRIEDMAN Organization Unknown [place] [address] Phone [phone] Care Team Providers Care Veterinary Radiologist Name Role Phone Donya Dejesus D.O. AUTM [phone] Eduar Stanford AUTM [phone] [facility] AUTM [phone] Clark Mims MD AUTM [phone] Problems Active Problems Provider Date Bipolar disorder [...] F O2 % BldC Oximetry 99 % [place] Body Weight 142 lb 03/10/2020 9:45am BP Systolic 116 mmHg BP Diastolic 64 mmHg Height 66.5 inches 5'6.50" Weight 202.12 lb BMI (Body Mass Index) 32.1 kg/m2 Heart Rate 73 /min Respiratory Rate 18 /min Body Temperature 98.5 F O2 % BldC Oximetry 97 % [place] Body Weight 142 lb Results Description No Information Available Procedures Description No Information Available Medical Devices Description No Information Available Encounters Type Date Location Provider Dx Diagnosis Office Visit 04/06/2020 10:20a [facility] SOPHIE Lorenzana G93.2 Benign intracranial hyperten charanjit F31.9 Bipolar disorder, unspecifie d G43.009 Migraine w/o aura, not intra ctable, w/o status migrainosus Office Visit 03/10/2020 9:40a [facility] SOPHIE Moreno G93.2 Benign intracranial hyperten charanjit F31.9 Bipolar disorder, unspecifie d Assessments Date Code Description Provider 04/06/2020 G93.2 Benign intracranial hypertension SOPHIE Moreno 04/06/2020 F31.9 Bipolar disorder, unspecified [place] SOPHIE Gan 04/06/2020 G43.009 Migraine without aur a, not intractable, without status migrainosus SOPHIE Moreno 03/10/2020 G93.2 Benign intracranial hypertension SOPHIE Moreno 03/10/2020 F31.9 Bipolar disorder, unspecified [place] SOPHIE Gan Plan of Treatment Future Appointment(s):* 05/08/2020 8:30 am - SOPHIE Moreno at [facility] Functional Status Description No Information Available Mental Status Description No Information Available Referrals Refer to Reason for Referral Status Appt Date Eduar Stanford O., MD Jodie was diagnosed with be nign intracranial hypertension in 03/18/29 while in [place]. She had two failed LP to reduce intracranial hypertension while in [place], even with Fluoroscopy. She had pa pilledema in the right eye and has been left with a chronic right visual disturbance reported a peripheral black spots, light sensitivity and generalized cloudiness. Patient Notified 04/20/2020 [facility] [address], [place] [id number] [phone] [facility] [place] [facility] history of Bipolar type one and having increased depression. looking to establish care. Sent [address] [place] [address] [phone] Clark Mims MD Jodie was diagnosed with be nign intracranial hypertension in 03/18/29 while in [place]. She had two failed LP to reduce intracranial hypertension while in [place], even with Fluoroscopy. She had papilledema in the right eye and has been left with a chronic right visual disturbance reported a peripheral black spots, light sensitivity and generalized cloudiness. Looking to establish care. Closed 03/22/[address], [address] [place] [address] [phone]
--- OUTSIDE RECORDS SUMMARY | 2020-06-24 13:55 | CCD | Continuity of Care Document ---
Author Jodie Miller Organization Unknown Address [address] [place] [address] Phone [phone] Care Team Providers Care Fish Flipper Name Role Phone Marek Vega AUTM [phone] Donya Dejesus DO AUTM Problems Description No [...] Office Visit 04/20/2020 12:30p Main office - [place] Yazmin Wells M.D. R42 Dizziness and giddiness [...] 8:45 am - Yazmin Wells M.D. at [facility] * 05/09/2020 9:00 am - Tiffanie Wells M.D. at [facility] Functional Status Description No Information Available Mental Status Description No Information Available Referrals Description No Information Available
--- OUTSIDE RECORDS SUMMARY | 2020-06-24 13:55 | CCD | Continuity of Care Document ---
Author Author Jodie WELLS M.D. Organization Unknown Address [address] [place] [address] Phone [phone] Care Team Providers Care Machine Tailer Name Role Phone Marek Vega AUTM [phone] Donya Dejesus DO AUTM Problems Description No Information Available Social History Type Date Description Comments Sex Unknown Allergies, Adverse Reactions, Alerts Description No Information Available Medications Description No Information Available Immunizations Description No Information Available Vital Signs Description No Information Available Results Description No Information Available Procedures Description No Information Available Medical Devices Description No Information Available Encounters Description No Information Available Assessments Description No Information Available Plan of Treatment Future Appointment(s):* 07/20/2020 8:45 am - Yazmin Wells M.D. at [facility] * 05/09/2020 9:00 am - Tiffanie Wells M.D. at [facility] Functional Status Description No Information Available Mental Status Description No Information Available Referrals Description No Information Available
--- OUTSIDE RECORDS SUMMARY | 2020-06-24 13:55 | CCD ---
Author Author Clark Mims MD [facility] Organization Clark Mims MD [facility] Address [address] [address] Phone Care Team Providers Care Respiratory Practitioner Name Role Phone Prasanna SHEA, SHAWNA, Clark Castillo Unavailable [phone] Reason for Referral No Reason for Referral Recorded Problems Includes: Active, inactive, and resolved Problems All Visits Onset Date - Time Resolved Date - Time Provider Co ndition Status Idiopathic Intracranial Hypertension (Pseudotumor Cerebri) 1 05/22/2019 - 12:00AM Clark Mims MD, FACS Active Plan of Treatment Pending Tests Order Diagnosis Results Due Ordering Provi jonna Testing Ordered - OCT OCT DISC Benign intracranial hypertension 09/18/20 Clark Mims MD, FACS Testing Ordered - Visual Field Visual Field 120 Benign in tracranial hypertension 09/18/20 Clark Mims MD, FACS Future Appointments Date Time Location Provider VISUAL FIELD 120 08/09/2020 9:30AM Clark Mims MD [facility] OCT DISC 08/09/2020 9:40AM Clark Mims MD [facility] 6 Month Follow-Up 09/08/2020 10:00AM [facility] Clark Childers MD, FACS Assessments Includes: Assessments for all patient encounters Findings Encounter Date Idiopathic intracranial hypertension TRIAGE NON URGENT with Clark Mims MD, FACS 06/21/2020 Idiopathic intracranial hypertension NEW PATIENT WITH REFERRAL with Clark Mims MD, FACS 03/22/2020 Instructions Instructions not supported for this document typeNo Instructions Recorded Medical Equipment - Implanted Devices Includes: Current and historical DevicesNo Medical Equipment Recorded Medications Includes: Current and historical Medications Current Medications (continue as prescribed) Venlafaxine HCl 37.5 MG Oral Tablet 03/22/2020 Prov ider: Diagnosis: Fioricet 30-300-25 Oral Tablet 03/22/2020 Provider: Diagnosis: acetaZOLAMIDE ER 500 MG Oral Capsule Extended Release 12 Christiana r 03/22/2020 Provider: Diagnosis: Past Medications on file Amitriptyline 25 MG Oral Tablet 03/22/2020 - 06/21/2020 Prov ider: Diagnosis: Acetazolamide 2000 MG Oral Tablet 03/22/2020 - 03/22/2020 Pr ovider: Diagnosis: Medications Administered Includes: Administered Medications in patient's chartNo Administered Medications Recorded Vital Signs Includes: Vital Signs from 06/21/2019 through 06/21/2020No Vital Signs Recorded For Specified Dates Results Includes: Results from 06/21/2019 through 06/21/2020No Results Recorded For Specified Dates History of Present Illness History of Present Illness not supported for this document typeNo History of Present Illness Recorded Social History Description Last Updated Tobacco non-user 06/21/2020 No tobacco use 06/21/2020 Not using alcohol 06/21/2020 Not using drugs 06/21/2020 Smoking status : Never smoker 06/21/2020 Procedures and Surgical History Includes: Procedures from 06/21/2019 through 06/21/2020 Procedures Code Diagnosis Performing Provider Service Location Service Date Intermediate Eye Exam Established Patient 66530 Benign intracranial hypertension Clark Mims MD, FACS 06/21/2020 Medical Eye Exam 07115 Benign intracranial hypertensio n Clark Mims MD, FACS Clark Mims MD [facility] 03/22/2020 Surgical History Last Updated No surgical / procedural history 06/21/2020 Medical History Includes: Medical History in patient's chart Description Last Updated No recent change in medical history 06/21/2020 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, Anxiety, Depression, Insomnia, 03/22/2020 Family History Includes: Family History in patient's chart Description Last Updated Maternal history of family history of cancer Review of Systems Review of Systems not supported for this document typeNo Review of Systems Recorded Mental Status Mental Status not supported for this document type Description Oriented to time, place, and person Anxiety Functional Status Functional Status not supported for this document typeNo Functional Status Recorded Physical Exam Physical Exam not supported for this document typeNo Physical Exam Recorded Immunizations Includes: Immunizations in patient's chartNo Immunizations Recorded Allergies Includes: Active, inactive, and resolved Allergies Substance Type Reaction Onset Date - Time Resolved Date - Ti me Status SUMAtriptan Succinate Allergy 03/22/2020 - 12:55PM Active Penicillins Allergy 03/22/2020 - 12:55PM Act dean Amoxicillin Allergy 03/22/2020 - 12:55PM Act dean Encounters Includes: Encounters from 06/21/2019 through 06/21/2020 Encounter Provider Location Date Check-In Time Check-Out Time D iagnosis TRIAGE NON URGENT Clark Mims MD, FACS Clark Mims MD [facility] 06/21/2020 8:34AM 9:05AM Idiopathic Intracran ial Hypertension (Pseudotumor Cerebri) NEW PATIENT WITH REFERRAL Clark Mims MD, FACS Clark Berman MD [facility] 03/22/2020 12:49PM 1:51PM Idiopathic Intracran ial Hypertension (Pseudotumor Cerebri) Insurance Includes: Active Insurance Policies Plan Name Member ID Group # Subscriber Relationship Effective Da pratima [address] [place] [address] [place] [id number] Jodie Stallworth Self Advance Directives Includes: Current Advance DirectivesNo Advance Directives Recorded Health Concerns Includes: Active Health ConcernsNo Active Health Concerns Recorded Goals Includes: Active GoalsNo Active Goals Recorded Interventions Includes: Interventions for active GoalsNo Interventions Recorded Evaluations & Outcomes Includes: Evaluations & Outcomes for active GoalsNo Outcomes Recorded
--- OUTSIDE RECORDS SUMMARY | 2020-06-24 13:55 | CCD ---
Author Author Clark Mims MD [facility] Organization Clark Mims MD [facility] Address [address] [address] Phone Care Team Providers Care Heart Nurse Name Role Phone Prasanna SHEA FACS, Clark Castillo Unavailable [phone] Reason for Referral No Reason for Referral [...] FIELD 120 08/09/2020 9:30AM Clark Mims MD [facility] OCT DISC 08/09/2020 9:40AM Clark Mims MD [facility] 6 Month Follow-Up 09/08/2020 10:00AM [facility] Clark Childers MD, FACS Assessments Includes: Assessments for all patient encounters Findings Encounter Date Idiopathic intracranial hypertension NEW PATIENT WITH REFERRAL with Clark Mims MD, FACS 03/22/2020 Instructions Instructions not supported for this document typeNo Instructions Recorded Medical Equipment - Implanted Devices Includes: Current and historical DevicesNo Medical Equipment Recorded Medications Includes: Current and historical Medications Current Medications (continue as prescribed) Amitriptyline 25 MG Oral Tablet 03/22/2020 Provider : Diagnosis: Venlafaxine HCl 37.5 MG Oral Tablet 03/22/2020 Prov ider: Diagnosis: Fioricet 30-300-25 Oral Tablet 03/22/2020 Provider: Diagnosis: acetaZOLAMIDE ER 500 MG Oral Capsule Extended Release 12 Christiana r 03/22/2020 Provider: Diagnosis: Past Medications on file Acetazolamide 2000 MG Oral Tablet 03/22/2020 - 03/22/2020 Pr ovider: Diagnosis: Medications Administered Includes: Administered Medications in patient's chartNo Administered Medications Recorded Vital Signs Includes: Vital Signs from 03/28/2019 through 03/28/2020No Vital Signs Recorded For Specified Dates Results Includes: Results from 03/28/2019 through 03/28/2020No Results Recorded For Specified Dates History of Present Illness History of Present Illness not supported for this document typeNo History of Present Illness Recorded Social History Description Last Updated No tobacco use 03/22/2020 Not using alcohol 03/22/2020 Not using drugs 03/22/2020 Smoking status : Never smoker 03/22/2020 Procedures and Surgical History Includes: Procedures from 03/28/2019 through 03/28/2020 Procedures Code Diagnosis Performing Provider Service Location Service Date Medical Eye Exam 27388 Benign intracranial hypertensio n Clark Mims MD, FACS Clark Mims MD [facility] 03/22/2020 Surgical History Last Updated No surgical / procedural history 03/22/2020 Medical History Includes: Medical History in patient's chart Description Last Updated Reported medical history Pseudo Tumor C erebri 2018, Anxiety, Depression, Insomnia, 03/22/2020 Family History Includes: Family History in patient's chart Description Last Updated Maternal history of family history of cancer 0 Review of Systems Review of Systems not [...] dean Amoxicillin Allergy 03/22/2020 - 12:55PM Act dena Encounters Includes: Encounters from 03/28/2019 through 03/28/2020 Encounter Provider Location Date Check-In Time Check-Out Time D iagnosis NEW PATIENT WITH REFERRAL Clark Mims MD, FACS Clark Berman MD [facility] 03/22/2020 12:49PM 1:51PM Idiopathic Intracran ial Hypertension (Pseudotumor Cerebri) Insurance Includes: Active Insurance Policies Plan Name Member ID Group # Subscriber Relationship Effective Da pratima 1 - [place] [id number] Jodie Stallworth Self Advance Directives Includes: Current Advance DirectivesNo Advance Directives Recorded Health Concerns Includes: Active Health ConcernsNo Active Health Concerns Recorded Goals Includes: Active GoalsNo Active Goals Recorded Interventions Includes: Interventions for active GoalsNo Interventions Recorded Evaluations & Outcomes Includes: Evaluations & Outcomes for active GoalsNo Outcomes Recorded
--- OUTSIDE RECORDS SUMMARY | 2020-06-24 13:55 | CCD | Continuity of Care Document ---
Author Author Jodie WELLS M.D. Organization Unknown Address [address] [place] [address] Phone [phone] Care Team Providers Care Diamond Cleaver Name Role Phone Marek Vega AUTM [phone] Donya Dejesus DO AUTM [phone] Problems Description No Information Available Social History Type Date Description Comments Sex Unknown Allergies, Adverse Reactions, Alerts Description No Information Available Medications Description No Information Available Immunizations Description No Information Available Vital Signs Description No Information Available Results Description No Information Available Procedures Date Code Description Status 05/09/2020 85571 Nerve Conduction 13+ Studies Com pleted 05/09/2020 17914 Needle Electromyogra phy Non Extremity Done With Nerve Conduction Completed 05/09/2020 95727 Needle Electromyography Complete , Five Or More Muscles Studied Completed 05/09/2020 98198 Needle Electromyography Complete , Five Or More Muscles Studied Completed 04/24/2020 39810 MRI Spine Cervical W/O Contrast Completed 04/24/2020 43740 MRI Spine Cervical W/O Contrast Completed 04/24/2020 33947 MRI Brain W/O Contrast Completed 04/24/2020 95272 MRI Brain W/O Contrast Completed 04/24/2020 98575 Magnetic Resonance Angiography N nav W/O Contrast Materials Completed 04/24/2020 46424 Magnetic Resonance Angiography N nav W/O Contrast Materials Completed 04/24/2020 16490 Magnetic Resonance Angiogtaphy H ead W/O Contrast Material(S) Completed 04/24/2020 13962 Magnetic Resonance Angiogtaphy H ead W/O Contrast Material(S) Completed Medical Devices Description No Information Available Encounters Type Date Location Provider Dx Diagnosis Office Visit 04/20/2020 12:30p Main office - [place] Yazmin Russell, M.D. R42 Dizziness and giddiness G47.00 Insomnia, unspecified G43.809 Other migraine, not intracta ble, without status migrainosus M54.2 Cervicalgia R20.2 Paresthesia of skin G93.2 Benign intracranial hyperten charanjit H53.8 Other visual disturbances M62.9 Disorder of muscle, unspecif ied Assessments Date Code Description Provider 05/09/2020 G56.03 Carpal tunnel syndrome, bilatera l upper limbs Tiffanie Russell, M.D. 05/09/2020 M54.2 Cervicalgia Tiffanie Russell, M.D . 05/09/2020 R20.2 Paresthesia of skin Itffanie Russell, M.D. 05/09/2020 G56.01 Carpal tunnel syndrome, [...] M.D. 04/20/2020 G93.2 Benign intracranial hypertension Yazmin Wells M.D. 04/20/2020 H53.8 Other visual disturbances Yazmin Wells M.D. 04/20/2020 M62.9 Disorder of muscle, unspecified Yazmin Wells M.D. Plan of Treatment Future Appointment(s):* 07/20/2020 8:45 am - Yazmin Wells M.D. at Main office - [place] Functional Status Description No Information Available Mental Status Description No Information Available Referrals Refer to Reason for Referral Status Appt Date Created
--- OUTSIDE RECORDS SUMMARY | 2020-06-24 13:56 | CCD ---
Author Author [facility] Organization [facility] Address Unknown Phone Unavailable Care Team Providers Care Conservation Worker Name Role Phone YOHANTAMMY LEON Unavailable Unavailable Haddad Childers, Dilia Rodas MD, FACS Unavailable Unavailable Haddad Childers, Dilia Rodas MD, FACS Unavailable Unavailable Haddad Childers, Dilia Rodas MD, FACS Unavailable Unavailable Haddad Childers, Dilia Rodas MD, FACS Unavailable Unavailable Haddad Childers, Dilia Rodas MD, FACS Unavailable Unavailable Haddad Childers, Dilia Rodas MD, FACS Unavailable Unavailable Haddad Childers, Dilia Rodas MD, FACS Unavailable Unavailable Haddad Childers, Dilia Rodas MD, FACS Unavailable Unavailable Haddad Childers, Dilia Rodas MD, FACS Unavailable Unavailable Haddad Childers, Dilia Rodas MD, FACS Unavailable Unavailable Haddad Childers, Dilia Rodas MD, FACS Unavailable Unavailable Haddad Childers, Dilia Rodas MD, FACS Unavailable Unavailable Haddad Childers, Dilia Rodas MD, FACS Unavailable Unavailable Haddad Childers, Dilia Rodas MD, FACS Unavailable Unavailable Haddad Childers, Dilia Rodas MD, FACS Unavailable Unavailable Haddad Childers, Dilia Rodas MD, FACS Unavailable Unavailable Haddad Childers, Dilia Rodas MD, FACS Unavailable Unavailable Haddad Childers, Dilia Rodas MD, FACS Unavailable Unavailable Haddad Childers, Dilia Rodas MD, FACS Unavailable Unavailable Haddad Childers, Dilia Rodas MD, FACS Unavailable Unavailable Haddad Childers, Dilia Rodas MD, FACS Unavailable Unavailable Haddad Childers, Dilia Rodas MD, FACS Unavailable Unavailable Haddad Childers, Dilia Rodas MD, FACS Unavailable Unavailable Haddad Childers, Dilia Rodas MD, FACS Unavailable Unavailable Haddad Childers, Dilia Rodas MD, FACS Unavailable Unavailable Haddad Childers, Dilia Rodas MD, FACS Unavailable Unavailable Haddad Childers, Dilia Rodas MD, FACS Unavailable Unavailable Haddad Childers, Dilia Rodas MD, FACS Unavailable Unavailable Haddad Childers, Dilia Rodas MD, FACS Unavailable Unavailable Haddad Childers, Dilia Rodas MD, FACS Unavailable Unavailable Haddad Childers, Dilia Rodas MD, FACS Unavailable Unavailable Haddad Childers, Dilia Rodas MD, FACS Unavailable Unavailable Haddad Childers, Dilia Rodas MD, FACS Unavailable Unavailable Haddad Childers, A Clark MD, FACS Unavailable Unavailable LIONEL, CHASE MD Unavailable Unavailable LIONEL, CHASE MD Unavailable Unavailable LIONEL, CHASE MD Unavailable Unavailable LIONEL, CHASE MD Unavailable Unavailable LIONEL, CHASE MD Unavailable Unavailable LIONEL, CHASE MD Unavailable Unavailable LIONEL, CHASE MD Unavailable Unavailable LIONEL, CHASE MD Unavailable Unavailable LIONEL, CHASE MD Unavailable Unavailable LIONEL, CHASE MD Unavailable Unavailable LIONEL, CHASE MD Unavailable Unavailable LIONEL, CHASE MD Unavailable Unavailable LIONEL, CHASE MD Unavailable Unavailable LIONEL, CHASE MD Unavailable Unavailable LIONEL, CHASE MD Unavailable Unavailable LIONEL, CHASE MD Unavailable Unavailable LIONEL, CHASE MD Unavailable Unavailable LIONEL, CHASE MD Unavailable Unavailable LIONEL, CHASE MD Unavailable Unavailable LIONEL, CHASE MD Unavailable Unavailable LIONEL, CHASE MD Unavailable Unavailable LIONEL, CHASE MD Unavailable Unavailable LIONEL, CHASE MD Unavailable Unavailable LIONEL, CHASE MD Unavailable Unavailable LIONEL, CHASE MD Unavailable Unavailable LIONEL, CHASE MD Unavailable Unavailable LIONEL, CHASE MD Unavailable Unavailable LIONEL, CHASE MD Unavailable Unavailable LIONEL, CHASE MD Unavailable Unavailable LIONEL, CHASE MD Unavailable Unavailable LIONEL, CHASE MD Unavailable Unavailable LIONEL, CHASE MD Unavailable Unavailable LIONEL, CHASE MD Unavailable Unavailable LIONEL, CHASE MD Unavailable Unavailable LIONEL, CHASE MD Unavailable Unavailable LIONEL, CHASE MD Unavailable Unavailable LIONEL, CHASE MD Unavailable Unavailable LIONEL, CHASE MD Unavailable Unavailable LIONEL, CHASE MD Unavailable Unavailable LIONEL, CHASE MD Unavailable Unavailable RANDLE, J LUCA PA Unavailable Unavailable RANDLE, J LUCA PA Unavailable Unavailable RANDLE, J LUCA PA Unavailable Unavailable RANDLE, J LUCA PA Unavailable Unavailable RANDLE, J LUCA PA Unavailable Unavailable RANDLE, J LUCA PA Unavailable Unavailable RANDLE, J LUCA PA Unavailable Unavailable RANDLE, J LUCA PA Unavailable Unavailable RANDLE, J LUCA PA Unavailable Unavailable RANDLE, J LUCA PA Unavailable Unavailable RANDLE, J LUCA PA Unavailable Unavailable RANDLE, J LUCA PA Unavailable Unavailable RANDLE, J LUCA PA Unavailable Unavailable RANDLE, J LUCA PA Unavailable Unavailable RANDLE, J LUCA PA Unavailable Unavailable RANDLE, J LUCA PA Unavailable Unavailable RANDLE, J LUCA PA Unavailable Unavailable RANDLE, J LUCA PA Unavailable Unavailable RANDLE, J LUCA PA Unavailable Unavailable RANDLE, J LUCA PA Unavailable Unavailable RANDLE, J LUCA PA Unavailable Unavailable RANDLE, J LUCA PA Unavailable Unavailable RANDLE, J LUCA PA Unavailable Unavailable RANDLE, J LUCA PA Unavailable Unavailable RANDLE, J LUCA PA Unavailable Unavailable RANDLE, J LUCA PA Unavailable Unavailable RANDLE, J LUCA PA Unavailable Unavailable MERLENE, CINDY Unavailable Unavailable Wilgeoe, Dilia Menoni MANAGER PORTABLE Unavailable Unavailable O'marvin, A Marek PA Unavailable Unavailable O'marvin, A Marek PA Unavailable Unavailable O'marvin, A Marek PA Unavailable Unavailable O'marvin, A Marek PA Unavailable Unavailable O'marvin, A Marek PA Unavailable Unavailable O'marvin, A Marek PA Unavailable Unavailable O'marvin, A Marek PA Unavailable Unavailable O'marvin, A Marek PA Unavailable Unavailable O'marvin, A Marek PA Unavailable Unavailable O'marvin, A Marek PA Unavailable Unavailable O'marvin, A Marek PA Unavailable Unavailable O'marvin, A Marek PA Unavailable Unavailable O'marvin, A Marek PA Unavailable Unavailable O'marvin, A Marek PA Unavailable Unavailable O'marvin, A Marek PA Unavailable Unavailable O'marvin, A Marek PA Unavailable Unavailable O'marvin, A Marek PA Unavailable Unavailable O'marvin, A Marek PA Unavailable Unavailable O'marvin, A Marek PA Unavailable Unavailable O'marvin, A Marek PA Unavailable Unavailable O'marvin, A Marek PA Unavailable Unavailable O'marvin, A Marek PA Unavailable Unavailable O'marvin, A Marek PA Unavailable Unavailable O'marvin, A Marek PA Unavailable Unavailable O'marvin, A Marek PA Unavailable Unavailable O'marvin, A Marek PA Unavailable Unavailable O'marvin, A Marek PA Unavailable Unavailable O'marvin, A Marek PA Unavailable Unavailable O'marvin, A Marek PA Unavailable Unavailable O'marvin, A Marek PA Unavailable Unavailable O'marvin, A Marek PA Unavailable Unavailable O'marvin, A Marek PA Unavailable Unavailable O'marvin, A Marek PA Unavailable Unavailable Re-disclosure Warning The records that you are about to access may contain information from federally-assisted alcohol or drug abuse programs. If such information is present, then the following federally mandated warning applies: This information has been disclosed to you from records protected by federal confidentiality rules (42 CFR part 2). The federal rules prohibit you from making any further disclosure of this information unless further disclosure is expressly permitted by the written consent of the person to whom it pertains or as otherwise permitted by 42 CFR part 2. A general authorization for the release of medical or other information is NOT sufficient for this purpose. The Federal rules restrict any use of the information to criminally investigate or prosecute any alcohol or drug abuse patient.The records that you are about to access may contain highly sensitive health information, the redisclosure of which is protected by Article 27-F of the [facility] Public Health law. If you continue you may have access to information: Regarding HIV / AIDS; Provided by facilities licensed or operated by the [facility] Office of Mental Health; or Provided by the [facility] Office for People With Developmental Disabilities. If such information is present, then the following [facility] mandated warning applies: This information has been disclosed to you from confidential records which are protected by state law. State law prohibits you from making any further disclosure of this information without the specific written consent of the person to whom it pertains, or as otherwise permitted by law. Any unauthorized further disclosure in violation of state law may result in a fine or retirement sentence or both. A general authorization for the release of medical or other information is NOT sufficient authorization for further disc losure. Allergies and Adverse Reactions Type Description Substance Reaction Status Data Source(s ) Drug allergy amoxicillin Amoxicillin Active KIM ( Clark Childers MD [facility]) Drug allergy Penicillins Penicillins Active KIM ( Clark Childers MD [facility]) Drug allergy Imitrex SUMAtriptan Succinate Active G [facility] (Clark Childers MD [facility]) Drug allergy amoxicillin Amoxicillin Active KIM ( Clark Childers MD [facility]) Drug allergy Penicillins Penicillins Active KIM ( Clark Childers MD [facility]) Drug allergy Imitrex SUMAtriptan Succinate Active G [facility] (Clark Childers MD [facility]) Encounters Encounter Providers Location Date Indications Data Source(s ) Outpatient Attender: Marek BARRIOS [facility] 06/22/2020 09:20:00 AM CHARLEEN SULLIVAN ([facility]) Outpatient<td ID="encounterTypeDescripti onID0">TRIAGE NON URGENT</td><td>Clark Mims MD, FACS</td><td>Clark Mims MD [facility]</td><td>06/21/2020</td><td>8:34AM</td><td>9:05AM</td><td><content ID="encounterDiagnosisID0-0">Idiopathic Intracranial Hypertension (Pseudotumor Cerebri)</content></td> Attender: Clark Childers MD, FACS [facility] 06/21/2020 08:34:00 AM EST - 06/21/2020 09:05:00 AM ES T Idiopathic Intracranial Hypertension (Pseudotumor Cerebri) KIM (Clark Childers MD [facility]) Idiopathic Intracranial Hypertension (Ps eudotumor Cerebri) Outpatient Attender: LUCA BARRIOS 05/26 10:50:00 AM EST - 05/26/2020 10:50:00 AM [facility] Outpatient Attender: CHASE FLOWERS MD Main office - [facility] 05/18/2020 08:30:00 AM EST [facility] ([facility]) Outpatient Attender: CINDY BLUNT 05/16/2020 09:53:00 AM EST - 05/16/2020 09:53:00 AM [facility] Outpatient Attender: Marek BARRIOS [facility] 05/08/2020 07:30:00 AM EST [facility] ([facility]) Outpatient Attender: Sadie Contreras LMSWReferrer: TAMMY OLIVEIRA 04/21/2020 01:00:00 PM EST - 04/21/2020 01:00:00 PM [facility] Outpatient Attender: CHASE FLOWERS MD Main office - [facility] 04/20/2020 11:30:00 AM EST [facility] ([facility]) Outpatient Attender: Marek BARRIOS [facility] 04/06/2020 09:20:00 AM EST [facility] ([facility]) Outpatient<td ID="encounterTypeDescripti onID1">NEW PATIENT WITH REFERRAL</td><td>Clark Mims MD, FACS</td><td>Clark Mims MD [facility]</td><td>03/22/2020</td><td>12:49PM</td><td>1:51PM</td><td><content ID="encounterDiagnosisID1-0">Idiopathic Intracranial Hypertension (Pseudotumor Cerebri)</content></td> Attender: Clark Childers MD, FACS Clark Vitale [facility] 03/22/2020 12:49:00 PM EST - 03/22/2020 01:51:00 PM ES T 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) KIM (Clark Childers MD [facility]) Idiopathic Intracranial Hypertension (Ps eudotumor Cerebri) Idiopathic Intracranial Hypertension (Ps eudotumor Cerebri) Outpatient Attender: Marek BARRIOS [facility] 03/10/2020 08:40:00 AM EST [facility] ([facility]) Medications Medication Brand Name Start Date Product Form Dose Route Admi nistrative Instructions Pharmacy Instructions Status Indications Reaction Description Data Source(s) Phenazopyridine hydrochloride 200 MG Delayed Release O ral Tablet Phenazopyridine HCL 06/22/2020 12:00:00 AM EST ORAL active [facility] ([facility]) Sulfamethoxazole 800 MG / Trimethoprim 160 MG Oral Tablet [B actrim] Bactrim DS 06/22/2020 12:00:00 AM EST ORAL active [facility] ([facility]) Emgality (300 MG Dose) Emgality (300 MG Dose) 05/18/2020 12:00:[address] completed [facility] ([facility]) Emgality Emgality 05/18/2020 12:00:00 AM EST SUBCUTANEOUS active [facility] ([facility]) 24 HR venlafaxine 150 MG Extended Release Oral Capsule Venla faxine HCL ER 05/09/2020 12:00:00 AM EST active [facility] ([facility]) 24 HR venlafaxine 150 MG Extended Release Oral Capsule Venla faxine HCL ER 05/08/2020 12:00:00 AM EST ORAL active [facility] ([facility]) Ajovy Ajovy 04/06/2020 12:00:00 AM EST SUBCUTANEOUS com pleted [facility] ([facility]) venlafaxine 75 MG Oral Tablet Venlafaxine HCL 04/06/2020 12:00:00 AM EST ORAL completed [facility] ([facility]) venlafaxine 75 MG Oral Tablet Venlafaxine HCL 04/06/2020 12:00:[address] completed [facility] ([facility]) venlafaxine 37.5 MG Oral Tablet Venlafaxine HCl 37.5 M G Oral Tablet Venlafaxine HCl 37.5 MG Oral Tablet 03/22/2020 12:00:00 AM EST 1 active venlafaxine 37.5 MG Oral Tablet KIM (Clark Childers MD [facility]) Acetazolamide 2000 MG Oral Tablet Acetazolamide 2000 MG Oral Tablet 03/22/2020 12:00:00 AM EST 1 aborted Acetazo lamide KIM (Clark Childers MD [facility]) Fioricet 30-300-25 Oral Tablet Fioricet 30-300-25 Oral Table t 03/22/2020 12:00:00 AM EST 1 active Fioricet KIM (Clark Childers MD [facility]) 12 HR Acetazolamide 500 MG Extended Rele ase Oral Capsule acetaZOLAMIDE ER 500 MG Oral Capsule Extended Release 12 Hour acetaZOLAMIDE ER 500 MG Oral Capsule Extended Release 12 Hour 03/22/2020 12:00:00 AM EST 1 active 12 HR acetazolamide 500 MG Extended Release Oral Capsule KIM (Clark Childers MD [facility]) Amitriptyline 25 MG Oral Tablet Amitriptyline 25 MG Oral Tab let 03/22/2020 12:00:00 AM EST 1 aborted Amitrip tyline KIM (Clark Childers MD [facility]) 24 HR venlafaxine 37.5 MG Extended Release Oral Capsule Venl afaxine HCL ER 03/10/2020 12:00:00 AM EST ORAL completed [facility] ([facility]) Amitriptyline Hydrochloride 25 MG Oral Tablet Amitriptyline HCL 03/10/2020 12:00:00 AM EST completed [facility] ([facility]) Amitriptyline Hydrochloride 25 MG Oral Tablet Amitriptyline HCL 03/10/2020 12:00:00 AM EST completed [facility] ([facility]) 24 HR venlafaxine 37.5 MG Extended Release Oral Capsule Venl afaxine HCL ER 03/10/2020 12:00:00 AM EST completed [facility] ([facility]) Acetaminophen 300 MG / butalbital 50 MG / Caffeine 40 MG Oral Capsule Butalbital/Acetaminophen/Caffeine 02/29/2020 12:00:00 AM EDT active [facility] ([facility]) Insurance Providers Payer name Policy type / Coverage type Policy ID Covered republican ID Covered republican's relationship to diego Policy [place] Plan Information [facility] [id number] SP [id number] [facility] [id number] Se [facility]f [id number] [facility] [place] [id number] 18 [id number] [facility] [place] [id number] Problems, Conditions, and Diagnoses Code Display Name Description Problem Type Effective Dates Data Source(s) 63682632 Benign intracranial hypertension (disord er) Idiopathic Intracranial Hypertension (Pseudotumor Cerebri) Problem 03/22/2020 12:00:00 AM ES T KIM (Clark Childers MD [facility]) [id number] Benign intracranial hypertension (disord er) Idiopathic Intracranial Hypertension (Pseudotumor Cerebri) Problem 03/22/2020 12:00:00 AM ES T KIM (Clark Childers MD [facility]) G93.2 Benign intracranial hypertension Benign intracranial h ypertension Problem 03/10/2020 12:00:00 AM EST [facility] ([facility]) F31.9 Bipolar disorder Bipolar disorder Problem 03/10/2020 12 :00:00 AM EST [facility] ([facility]) F419 Anxiety disorder, unspecified Anxiety disorder, unspec ified Diagnosis 05/16/2020 09:53:00 AM [facility] F339 Major depressive disorder, recurrent, un specified Major depressive disorder, recurrent, unspecified Diagnosis 05/16/2020 09:53:00 AM [facility] Surgeries/Procedures Procedure Description Date Indications Data Source(s) No surgical / procedural history No surgical / procedural hi story 06/21/2020 12:00:00 AM EST KIM (Clark Childers MD [facility]) Intermediate Eye Exam Established Patient Intermediate Eye Exam Established Patient 06/21/2020 12:00:00 AM EST KIM (Ambrosio Childers MD [facility]) Magnetic Resonance Angiogtaphy Head W/O Contrast Material(S) 05/26/2020 12:00:00 AM EST [facility] ([facility]) Magnetic Resonance Angiogtaphy Head W/O Contrast Material(S) 05/26/2020 12:00:00 AM EST [facility] ([facility]) Needle electromyography, each extremity, with related paraspinal areas, when performed, done with nerve conduction, amplitude and latency/velocity study; complete, five or more muscles studied, innervated by three or more nerves or four or more spinal levels (list separately in addition to the code for primary procedure). 05/09/2020 12:00:00 AM EST [facility] T ([facility] Needle electromyography, each extremity, with related paraspinal areas, when performed, done with nerve conduction, amplitude and latency/velocity study; complete, five or more muscles studied, innervated by three or more nerves or four or more spinal levels (list separately in addition to the code for primary procedure). 05/09/2020 12:00:00 AM EST [facility] T ([facility] ) Needle Electromyography Non Extremity Done With Nerve Conduc tion 05/09/2020 12:00:00 AM EST [facility] ([facility]) 15755 Nerve conduction studies 13 or more studies NEW 201205/09/2020 12:00:00 AM EST [facility] ([facility]) Magnetic Resonance Angiogtaphy Head W/O Contrast Material(S) 04/24/2020 12:00:00 AM EST [facility] ([facility]) Magnetic Resonance Angiogtaphy Head W/O Contrast Material(S) 04/24/2020 12:00:00 AM EST [facility] ([facility]) Magnetic Resonance Angiography Neck W/O Contrast Materials 04/24/2020 12:00:00 AM EST [facility] ([facility]) Magnetic Resonance Angiography Neck W/O Contrast Materials 04/24/2020 12:00:00 AM EST [facility] ([facility]) MRI BRAIN BRAIN STEM W/O CONTRAST MATERIAL 04/24/2020 12:00:00 AM EST [facility] ([facility]) MRI BRAIN BRAIN STEM W/O CONTRAST MATERIAL 04/24/2020 12:00:00 AM EST [facility] ([facility]) MRI SPINAL CANAL CERVICAL W/O CONTRAST MATRL 0 12:00:00 AM EST [facility] ([facility]) MRI SPINAL CANAL CERVICAL W/O CONTRAST MATRL 0 12:00:00 AM EST [facility] ([facility]) Psychiatric Diagnostic Evaluation 04/21/2020 12:00:00 AM EST [facility] ([facility]) Medical Eye Exam Medical Eye Exam 03/22/2020 12:00:00 AM EST KIM (Clark Childers MD [facility]) No surgical / procedural history No surgical / procedural hi story 03/22/2020 12:00:00 AM EST K[facility] (Clark Childers MD [facility]) Results ID Date Data Source [id number] 06/22/2020 11:16:00 AM EST [facility] ([facility]) Name Value Range Interpretation Code Description Data Kecia rce(s) Supporting Document(s) Inhouse Nitrite Laboratory test result [facility] ([facility]) Inhouse Leukocytes Laboratory test result [facility] ([facility]) Inhouse Protein Laboratory test result [facility] ([facility]) Inhouse Urobilinogen Laboratory test result [facility] ([facility]) Inhouse Hemoglobin Laboratory test result [facility] ([facility]) Inhouse Specific [place] 1.010 [facility] ([facility]) Inhouse PH 7 [facility] ([facility]) Inhouse Ketones Laboratory test result [facility] ([facility]) Inhouse Bilirubin Laboratory test result [facility] ([facility]) Inhouse Glucose Laboratory test result [facility] ([facility]) ID Date Data Source [id number] 06/22/2020 11:10:00 AM EST [facility] ([facility]) Name Value Range Interpretation Code Description Data Kecia rce(s) Supporting Document(s) Bacteria identified in Urine by Culture Laboratory test result Normal (applies to non-numeric results) [facility] ([facility]) FULL REPORT IN LAB NOTES (eCW and [facility] ). NO GROWTH CLINICAL SIGNIFICANCE 1 ORGANISM ID Date Data Source [id number] 05/26/2020 11:39:00 AM EST [facility] ([facility]) Name Value Range Interpretation Code Description Data Kecia rce(s) Supporting Document(s) Laboratory test finding (navigational concept) Laboratory test result [facility] ([facility]) {DIAGNOSIS: F33.9 F41.9~{MEDICATIONS/DE CLARED: ACETAZOLAMIDE,ACETAMINOPHEN~{PRESCRIPTION INFO: PDF Laboratory test result [facility] ([facility]) {DIAGNOSIS: F33.9 F41.9~{MEDICATIONS/DE CLARED: ACETAZOLAMIDE,ACETAMINOPHEN~{PRESCRIPTION INFO: ID Date Data Source [id number] 06/01/2020 04:14:00 PM EST [facility] Name Value Range Interpretation Code Description Data Kecia rce(s) Supporting Document(s) Drugs identified in Urine FINAL [facility] TOXASSURE SELECT 13 (MW) Test Result Flag UnitsDrug Present and Declared for Prescription Verification Butalbital [...] Acetaminophen Acetaminophen (Fioricet) Acetazolamide Caffeine (Fioricet) Venlafaxine F or clinical consultation, please call . Report . [facility] Procedure Social History Code Duration Value Status Description Data Source(s ) Smoking 06/21/2020 03:40:32 PM EST Never smoked tobacco (findi ng) completed Never smoked tobacco (finding) KIM (Clark Childers MD [facility]) Smoking 03/28/2020 11:18:17 AM EST Never smoked tobacco (findi ng) completed Never smoked tobacco (finding) KIM (Clark Childers MD [facility]) Vital Signs ID Date Data Source UNK Name Value Range Interpretation Code Description Data Source(s) [place] body weight 142 [lb_av] 142 [lb_av] MED[facility] T ([facility]) Oxygen saturation in Arterial blood by Pulse [facility]xim[facility] 98 % 98 [facility] Body temperature 98.8 [degF] 98.8 [degF] [facility] ([facility]) Respiratory rate 18 /min 18 /min [facility] ( [facility]) Heart rate 93 /min 93 /min [facility] ([facility]) Body mass index (BMI) [Ratio] 33.5 kg/m2 33.5 k g/m2 [facility] ([facility]) Body weight 211.00 [lb_av] 211.00 [lb_av] MED[facility] T ([facility]) Body height 66.5 [in_i] 66.5 [in_i] [facility] ([facility]) 5'6.50" Diastolic blood pressure 74 mm[Hg] 74 mm[Hg] [facility] ([facility]) Systolic blood pressure 124 mm[Hg] 124 mm[Hg] M [facility]ENT ([facility]) Body surface area Derived from formula 2.02 m2 2.02 m2 [facility] ([facility]) Body mass index (BMI) [Ratio] 31.2 kg/m2 31.2 k g/m2 [facility] ([facility]) Body height 67 [in_i] 67 [in_i] [facility] ([facility]) 5'7" Body weight 90.436 kg 90.436 kg [facility] ([facility]) Body weight 199.38 [lb_av] 199.38 [lb_av] MEDEN T ([facility]) Oxygen saturation in Arterial blood by Pulse oximetry 100 % 100 % [facility] ([facility]) Respiratory rate 18 /min 18 /min [facility] ( [facility]) Body temperature 98.9 [degF] 98.9 [degF] [facility] ([facility]) Oral [facility] 90 /min 90 [facility] Diastolic blood pressure--sitting 83 mm[Hg] 83 mm[Hg] [facility] ([facility]) Systolic blood pressure--sitting 127 mm[Hg] 127 mm[Hg] [facility] ([facility]) [place] body weight 142 [lb_av] 142 [lb_av] MEDEN T ([facility]) Oxygen saturation in Arterial blood by Pulse oximetry 99 % 99 % [facility] Body temperature 98.9 [degF] 98.9 [degF] [facility] ([facility]) Respiratory rate 18 /min 18 /min [facility] ( [facility]) Heart rate 95 /min 95 /min [facility] ([facility]) Body mass index (BMI) [Ratio] 32.3 kg/m2 32.3 k g/m2 [facility] ([facility]) Body weight 203.25 [lb_av] 203.25 [lb_av] MEDEN T ([facility]) Body height 66.5 [in_i] 66.5 [in_i] [facility] ([facility]) 5'6.50" Diastolic blood pressure 72 mm[Hg] 72 mm[Hg] [facility] ([facility]) Systolic blood pressure 122 mm[Hg] 122 mm[Hg] [facility] ([facility]) [place] body weight 142 [lb_av] 142 [lb_av] MEDEN T ([facility]) Oxygen saturation in Arterial blood by Pulse oximetry 99 % 99 % [facility] ([facility]) Body temperature 98.4 [degF] 98.4 [degF] [facility] ([facility]) Respiratory rate 18 /min 18 /min [facility] Heart rate 97 /min 97 /[facility] Body mass index (BMI) [Ratio] 32.9 kg/m2 32.9 k g/m2 [facility] ([facility]) Body weight 207.12 [lb_av] 207.12 [lb_av] MEDEN T ([facility]) Body height 66.5 [in_i] 66.5 [in_i] [facility] ([facility]) 5'6.50" Diastolic blood pressure 64 mm[Hg] 64 mm[Hg] [facility] ([facility]) Systolic blood pressure 120 mm[Hg] 120 mm[Hg] [facility] ([facility]) [place] body weight 142 [lb_av] 142 [lb_av] MEDEN T ([facility]) Oxygen saturation in Arterial blood by Pulse oximetry 97 % 97 % [facility] ([facility]) Body temperature 98.5 [degF] 98.5 [degF] [facility] Respiratory rate 18 /min 18 /min [facility] ( [facility]) Heart rate 73 /min 73 /min [facility] ([facility]) Body mass index (BMI) [Ratio] 32.1 kg/m2 32.1 k g/m2 N[facility] ([facility]) Body weight 202.12 [lb_av] 202.12 [lb_av] BROOKS Naidu ([facility]) Body height 66.5 [in_i] 66.5 [in_i] [facility] ([facility]) 5'6.50" Diastolic blood pressure 64 mm[Hg] 64 mm[Hg] [facility] ([facility]) Systolic blood pressure 116 mm[Hg] 116 mm[Hg] Esmer IVAN ([facility])
--- OUTSIDE RECORDS SUMMARY | 2020-06-24 13:59 | CCD ---
Author Author [facility] Organization [facility] Address Unknown Phone Unavailable Care Team Providers Care Manual Winder Name Role Phone YOHANTAMMY LEON Unavailable Unavailable [...] MERLENE, CINDY Unavailable Unavailable Wilgeoe, Dilia Menoni SCRAPPER Unavailable Unavailable O'marvin, A Marek PA Unavailable [...] is protected by Article 27-F of the [facility] Public Health law. If you continue you may have access to information: Regarding HIV / AIDS; Provided by facilities licensed or operated by the [facility] Office of Mental Health; or Provided by the [facility] Office for People With Developmental Disabilities. If such information is present, then the following [facility] mandated warning applies: This information [...] Amoxicillin Active KIM ( Clark Childers MD [facility]) Drug allergy Penicillins Penicillins Active KIM ( Clark Childers MD [facility]) Drug allergy Imitrex SUMAtriptan Succinate Active G REENWAY (Clark Childers MD [facility]) Drug allergy amoxicillin Amoxicillin Active KIM ( Clark Childers MD [facility]) Drug allergy Penicillins Penicillins Active KIM ( Clark Childers MD [facility]) Drug allergy Imitrex SUMAtriptan Succinate Active G REENWAY (Clark Childers MD [facility]) Encounters Encounter Providers Location Date Indications Data Source(s ) Outpatient Attender: Marek BARRIOS [facility] 06/22/2020 09:20:00 AM CHARLEEN SULLIVAN ([facility]) Outpatient<td ID="encounterTypeDescripti onID0">TRIAGE NON URGENT</td><td>Clark Mims MD, FACS</td><td>Clark Mims MD [facility]</td><td>06/21/2020</td><td>8:34AM</td><td>9:05AM</td><td><content ID="encounterDiagnosisID0-0">Idiopathic Intracranial Hypertension (Pseudotumor Cerebri)</content></td> Attender: Clark Childers MD, FACS [facility] 06/21/2020 08:34:00 AM EST - 06/21/2020 09:05:00 AM ES T Idiopathic Intracranial Hypertension (Pseudotumor Cerebri) KIM (Clark Childers MD [facility]) Idiopathic Intracranial Hypertension (Ps eudotumor Cerebri) Outpatient Attender: LUCA BARRIOS 05/26 10:50:00 AM EST - 05/26/2020 10:50:00 AM [facility] Outpatient Attender: CHASE FLOWERS MD Main office - [facility] 05/18/2020 08:30:00 AM EST [facility] ([facility]) Outpatient Attender: CINDY BLUNT 05/16/2020 09:53:00 AM EST - 05/16/2020 09:53:00 AM [facility] Outpatient Attender: Marek BARRIOS [facility] 05/08/2020 07:30:00 AM EST MED[facility] ([facility]) Outpatient Attender: Sadie Contreras LMSWReferrer: TAMMY OLIVEIRA 04/21/2020 01:00:00 PM EST - 04/21/2020 01:00:00 PM [facility] Outpatient Attender: CHASE FLOWERS MD Main office - [facility] 04/20/2020 11:30:00 AM EST [facility] ([facility]) Outpatient Attender: Marek BARRIOS [facility] 04/06/2020 09:20:00 AM EST [facility] ([facility]) Outpatient<td ID="encounterTypeDescripti onID1">NEW PATIENT WITH REFERRAL</td><td>Clark Mims MD, FACS</td><td>Clark Mims MD [facility]</td><td>03/22/2020</td><td>12:49PM</td><td>1:51PM</td><td><content ID="encounterDiagnosisID1-0">Idiopathic Intracranial Hypertension (Pseudotumor Cerebri)</content></td> Attender: Clark Childers MD, FACS [facility] 03/22/2020 12:49:00 PM EST - 03/22/2020 01:51:00 PM ES T 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) KIM (Clark Childers MD [facility]) Idiopathic Intracranial Hypertension (Ps eudotumor Cerebri) Idiopathic Intracranial Hypertension (Ps eudotumor Cerebri) Outpatient Attender: Marek BARRIOS [facility] 03/10/2020 08:40:00 AM EST [facility] ([facility]) Medications Medication Brand Name Start Date Product Form Dose Route Admi nistrative Instructions Pharmacy Instructions Status Indications Reaction Description Data Source(s) Phenazopyridine hydrochloride 200 MG Delayed Release O ral Tablet Phenazopyridine HCL 06/22/2020 12:00:00 AM EST ORAL active [facility] ([facility]) Sulfamethoxazole 800 MG / Trimethoprim 160 MG Oral Tablet [B actrim] Bactrim DS 06/22/2020 12:00:00 AM EST ORAL active [facility] ([facility]) Emgality (300 MG Dose) Emgality (300 MG Dose) 05/18/2020 12:00:[address] completed [facility] ([facility]) Emgality Emgality 05/18/2020 12:00:00 AM EST SUBCUTANEOUS active [facility] ([facility]) 24 HR venlafaxine 150 MG Extended Release Oral Capsule Venla faxine HCL ER 05/09/2020 12:00:00 AM EST active [facility] ([facility]) 24 HR venlafaxine 150 MG Extended Release Oral Capsule Venla faxine HCL ER 05/08/2020 12:00:00 AM EST ORAL active [facility] ([facility]) Ajovy Ajovy 04/06/2020 12:00:00 AM EST SUBCUTANEOUS com pleted [facility] ([facility]) venlafaxine 75 MG Oral Tablet Venlafaxine HCL 04/06/2020 12:00:00 AM EST ORAL completed [facility] ([facility]) venlafaxine 75 MG Oral Tablet Venlafaxine HCL 04/06/2020 12:00:[address] completed [facility] ([facility]) venlafaxine 37.5 MG Oral Tablet Venlafaxine HCl 37.5 M G Oral Tablet Venlafaxine HCl 37.5 MG Oral Tablet 03/22/2020 12:00:00 AM EST 1 active venlafaxine 37.5 MG Oral Tablet KIM (Clark Childers [facility]) Acetazolamide 2000 MG Oral Tablet Acetazolamide 2000 MG Oral Tablet 03/22/2020 12:00:00 AM EST 1 aborted Acetazo lamide KIM (Clark Childers MD [facility]) Fioricet 30-300-25 Oral Tablet Fioricet 30-300-25 Oral Table t 03/22/2020 12:00:00 AM EST 1 active Fioricet KIM (Clark Childers [facility]) 12 HR Acetazolamide 500 MG Extended Rele ase Oral Capsule acetaZOLAMIDE ER 500 MG Oral Capsule Extended Release 12 Hour acetaZOLAMIDE ER 500 MG Oral Capsule Extended Release 12 Hour 03/22/2020 12:00:00 AM EST 1 active 12 HR acetazolamide 500 MG Extended Release Oral Capsule KIM ([facility]) Amitriptyline 25 MG Oral Tablet Amitriptyline 25 MG Oral Tab let 03/22/2020 12:00:00 AM EST 1 aborted Amitrip tyline KIM (Clark Childers [facility]) 24 HR venlafaxine 37.5 MG Extended Release Oral Capsule Venl afaxine HCL ER 03/10/2020 12:00:00 AM EST ORAL completed [facility] ([facility]) Amitriptyline Hydrochloride 25 MG Oral Tablet Amitriptyline HCL 03/10/2020 12:00:00 AM EST completed [facility] ([facility]) Amitriptyline Hydrochloride 25 MG Oral Tablet Amitriptyline HCL 03/10/2020 12:00:00 AM EST completed [facility] ([facility]) 24 HR venlafaxine 37.5 MG Extended Release Oral Capsule Venl afaxine HCL ER 03/10/2020 12:00:00 AM EST completed [facility] ([facility]) Acetaminophen 300 MG / butalbital 50 MG / Caffeine 40 MG Oral Capsule Butalbital/Acetaminophen/Caffeine 02/29/2020 12:00:00 AM EDT active [facility] ([facility]) Insurance Providers Payer name Policy type / Coverage type Policy ID Covered libertarian ID Covered libertarian's relationship to diego Policy [place] Plan Information [facility] [id number] SP [id number] [facility] U [id number] Se lf [id number] [employer] AT [facility] [place] [id number] 18 [id number] [facility] [place] [id number] Problems, Conditions, and Diagnoses Code Display Name Description Problem Type Effective Dates Data Source(s) 10633456 Benign intracranial hypertension (disord er) Idiopathic Intracranial Hypertension (Pseudotumor Cerebri) Problem 03/22/2020 12:00:00 AM ES T KIM (Clark [facility]ers [facility]) [id number] Benign intracranial hypertension (disord er) Idiopathic Intracranial Hypertension (Pseudotumor Cerebri) Problem 03/22/2020 12:00:00 AM ES T KIM ([facility]) G93.2 Benign intracranial hypertension Benign intracranial h ypertension Problem 03/10/2020 12:00:00 AM EST [facility] ([facility]) F31.9 Bipolar disorder Bipolar disorder Problem 03/10/2020 12 :00:00 AM EST [facility] ([facility]) F419 Anxiety disorder, unspecified Anxiety disorder, unspec ified Diagnosis 05/16/2020 09:53:00 AM [facility] F339 Major depressive disorder, recurrent, un specified Major depressive disorder, recurrent, unspecified Diagnosis 05/16/2020 09:53:00 AM [facility] Surgeries/Procedures Procedure Description Date Indications Data Source(s) No surgical / procedural history No surgical / procedural hi story 06/21/2020 12:00:00 AM EST KIM (Cl[facility]ers [facility]) Intermediate Eye Exam Established Patient Intermediate Eye Exam Established Patient 06/21/2020 12:00:00 AM EST KIM (Ambrosio Childers MD [facility]) Magnetic Resonance Angiogtaphy Head W/O Contrast Material(S) 05/26/2020 12:00:00 AM EST [facility] ([facility]) Magnetic Resonance Angiogtaphy Head W/O Contrast Material(S) 05/26/2020 12:00:00 AM EST [facility] ([facility]) Needle electromyography, each extremity, with related paraspinal areas, when performed, done with nerve conduction, amplitude and latency/velocity study; complete, five or more muscles studied, innervated by three or more nerves or four or more spinal levels (list separately in addition to the code for primary procedure). 05/09/2020 12:00:00 AM EST MEDEN T ([facility] ) Needle electromyography, each extremity, with related paraspinal areas, when performed, done with nerve conduction, amplitude and latency/velocity study; complete, five or more muscles studied, innervated by three or more nerves or four or more spinal levels (list separately in addition to the code for primary procedure). 05/09/2020 12:00:00 AM EST MEDEN T ([facility] ) Needle Electromyography Non Extremity Done With Nerve Conduc tion 05/09/2020 12:00:00 AM EST [facility] ([facility]) [address]151 Nerve conduction studies 13 or more studies NEW 201205/09/2020 12:00:00 AM EST [facility] ([facility]) Magnetic Resonance Angiogtaphy Head W/O Contrast Material(S) 04/24/2020 12:00:00 AM EST [facility] ([facility]) Magnetic Resonance Angiogtaphy Head W/O Contrast Material(S) 04/24/2020 12:00:00 AM EST [facility] ([facility]) Magnetic Resonance Angiography Neck W/O Contrast Materials 04/24/2020 12:00:00 AM EST [facility] ([facility]) Magnetic Resonance Angiography Neck W/O Contrast Materials 04/24/2020 12:00:00 AM EST [facility] ([facility]) MRI BRAIN BRAIN STEM W/O CONTRAST MATERIAL 04/24/2020 12:00:00 AM EST [facility] ([facility]) MRI BRAIN BRAIN STEM W/O CONTRAST MATERIAL 04/24/2020 12:00:00 AM EST [facility] ([facility]) MRI SPINAL CANAL CERVICAL W/O CONTRAST MATRL 0 12:00:00 AM EST [facility] ([facility]) MRI SPINAL CANAL CERVICAL W/O CONTRAST MATRL 0 12:00:00 AM EST [facility] ([facility]) Psychiatric Diagnostic Evaluation 04/21/2020 12:00:00 AM EST [facility] ([facility]) Medical Eye Exam Medical Eye Exam 03/22/2020 12:00:00 AM EST KIM (Clark Childers [facility]) No surgical / procedural history No surgical / procedural hi story 03/22/2020 12:00:00 AM EST KIM (Clark Childers [facility]) Results ID Date Data Source [id number] 06/22/2020 11:16:00 AM EST MED[facility] ([facility]) Name Value Range Interpretation Code Description Data Kecia rce(s) Supporting Document(s) Inhouse Nitrite Laboratory test result MED[facility] ([facility]) Inhouse Leukocytes Laboratory test result [facility] ([facility]) Inhouse Protein Laboratory test result [facility] ([facility]) Inhouse Urobilinogen Laboratory test result [facility] ([facility]) Inhouse Hemoglobin Laboratory test result [facility] ([facility]) Inhouse Specific [place] 1.010 [facility] ([facility]) Inhouse PH 7 [facility] ([facility]) Inhouse Ketones Laboratory test result [facility] ([facility]) Inhouse Bilirubin Laboratory test result [facility] ([facility]) Inhouse Glucose Laboratory test result [facility] ([facility]) ID Date Data Source [id number] 06/22/2020 11:10:00 AM EST [facility] ([facility]) Name Value Range Interpretation Code Description Data Kecia rce(s) Supporting Document(s) Bacteria identified in Urine by Culture Laboratory test result Normal (applies to non-numeric results) [facility] ([facility]) FULL REPORT IN LAB NOTES (eCW and [facility] ). NO GROWTH CLINICAL SIGNIFICANCE 1 ORGANISM ID Date Data Source [id number] 05/26/2020 11:39:00 AM EST [facility] ([facility]) Name Value Range Interpretation Code Description Data Kecia rce(s) Supporting Document(s) Laboratory test finding (navigational concept) Laboratory test result MED[facility] ([facility]) {DIAGNOSIS: F33.9 F41.9~{MEDICATIONS/DE CLARED: ACETAZOLAMIDE,ACETAMINOPHEN~{PRESCRIPTION INFO: PDF Laboratory test result [facility] ([facility]) {DIAGNOSIS: F33.9 F41.9~{MEDICATIONS/DE CLARED: ACETAZOLAMIDE,ACETAMINOPHEN~{PRESCRIPTION INFO: ID Date Data Source [id number] 06/01/2020 04:14:00 PM EST [facility] Name Value Range Interpretation Code Description Data Kecia rce(s) Supporting Document(s) Drugs identified in Urine FINAL [facility] TOXASSURE SELECT 13 (MW) Test Result Flag [...] clinical consultation, please call . Report . [facility] Procedure Social History Code Duration Value Status Description Data Source(s ) Smoking 06/21/2020 03:40:32 PM EST Never smoked tobacco (findi ng) completed Never smoked tobacco (finding) KIM (Clark Childers [facility]) Smoking 03/28/2020 11:18:17 AM EST Never smoked tobacco (findi ng) completed Never smoked tobacco (finding) KIM ([facility]) Vital Signs ID Date Data Source UNK Name Value Range Interpretation Code Description Data Source(s) [place] body weight 142 [lb_av] 142 [lb_av] MEDEN T ([facility]) Oxygen saturation in Arterial blood by Pulse oximetry 98 % 98 % [facility] Body temperature 98.8 [degF] 98.8 [degF] [facility] ([facility]) Respiratory rate 18 /min 18 /min [facility] ( [facility]) Heart rate 93 /min 93 /min [facility] ([facility]) Body mass index (BMI) [Ratio] 33.5 kg/m2 33.5 k g/m2 MED[facility] ([facility]) Body weight 211.00 [lb_av] 211.00 [lb_av] MEDEN T ([facility]) Body height 66.5 [in_i] 66.5 [in_i] MED[facility] ([facility]) 5'6.50" Diastolic blood pressure 74 mm[Hg] 74 mm[Hg] MED[facility] ([facility]) Systolic blood pressure 124 mm[Hg] 124 mm[Hg] M EDENT ([facility]) Body surface area Derived from formula 2.02 m2 2.02 m2 MED[facility] ([facility]) Body mass index (BMI) [Ratio] 31.2 kg/m2 31.2 k g/m2 [facility] ([facility]) Body height 67 [in_i] 67 [in_i] [facility] ([facility]) 5'7" Body weight 90.436 kg 90.436 kg [facility] ([facility]) Body weight 199.38 [lb_av] 199.38 [lb_av] MEDEN T ([facility]) Oxygen saturation in Arterial blood by Pulse oximetry 100 % 100 % [facility] ([facility]) Respiratory rate 18 /min 18 /min [facility] ( [facility]) Body temperature 98.9 [degF] 98.9 [degF] [facility] ([facility]) Oral Heart rate 90 /min 90 /min [facility]) Diastolic blood pressure--sitting 83 mm[Hg] 83 mm[Hg] [facility] ([facility]) Systolic blood pressure--sitting 127 mm[Hg] 127 mm[Hg] [facility] ([facility]) [place] body weight 142 [lb_av] 142 [lb_av] MEDEN T ([facility]) Oxygen saturation in Arterial blood by Pulse oximetry 99 % 99 % [facility]) Body temperature 98.9 [degF] 98.9 [degF] [facility] ([facility]) Respiratory rate 18 /min 18 /min [facility] ( [facility]) Heart rate 95 /min 95 /min [facility] ([facility]) Body mass index (BMI) [Ratio] 32.3 kg/m2 32.3 k g/m2 [facility] ([facility]) Body weight 203.25 [lb_av] 203.25 [lb_av] MEDEN T ([facility]) Body height 66.5 [in_i] 66.5 [in_i] [facility] ([facility]) 5'6.50" Diastolic blood pressure 72 mm[Hg] 72 mm[Hg] [facility] ([facility]) Systolic blood pressure 122 mm[Hg] 122 mm[Hg] [facility] ([facility]) [place] body weight 142 [lb_av] 142 [lb_av] MEDEN T ([facility]) Oxygen saturation in Arterial blood by Pulse oximetry 99 % 99 % [facility] ([facility]) Body temperature 98.4 [degF] 98.4 [degF] [facility] ([facility]) [facility] rate 18 /min 18 /min [facility] Heart rate 97 /min 97 /min [facility]) Body mass index (BMI) [Ratio] 32.9 kg/m2 32.9 k g/m2 [facility] ([facility]) Body weight 207.12 [lb_av] 207.12 [lb_av] MEDEN T ([facility]) Body height 66.5 [in_i] 66.5 [in_i] [facility] ([facility]) 5'6.50" Diastolic blood pressure 64 mm[Hg] 64 mm[Hg] [facility] ([facility]) Systolic blood pressure 120 mm[Hg] 120 mm[Hg] [facility] ([facility]) [place] body weight 142 [lb_av] 142 [lb_av] MEDEN T ([facility]) Oxygen saturation in Arterial blood by Pulse oximetry 97 % 97 % [facility] ([facility]) Body temperature 98.5 [degF] 98.5 [degF] [facility]) Respiratory rate 18 /min 18 /min [facility] ( [facility]) Heart rate 73 /min 73 /min [facility] ([facility]) Body mass index (BMI) [Ratio] 32.1 kg/m2 32.1 k g/m2 NATE ([facility]) Body weight 202.12 [lb_av] 202.12 [lb_av] BROOKS Naidu ([facility]) Body height 66.5 [in_i] 66.5 [in_i] NATE ([facility]) 5'6.50" Diastolic blood pressure 64 mm[Hg] 64 mm[Hg] NATE ([facility]) Systolic blood pressure 116 mm[Hg] 116 mm[Hg] Esmer IVAN ([facility])
[2020-06-24 14:00] VITALS: BP 128/65
== END 2020-06-24 14:11 | disposition home or self-care (01) ==
LOC: M ED 12:14
DX: R51.9 Headache, unspecified (principal); G93.2 Benign intracranial hypertension; Z79.899 Other long term (current) drug therapy; Z88.0 Allergy status to penicillin; Z88.8 Allergy status to other drugs, medicaments and biological substances
CPT/HCPCS: 96361; 96374; 96375; 99284; J1200; J1885; J2765

== ENCOUNTER → 2020-06-30 | Outpatient (CLI) | payer OTHER ==
--- NOTE | 2020-07-04 01:04 | ECWPNPC ---
PATIENT NAME: JENNIFER HAQ : 1995 GENDER: FEMALE VISIT DATE: 06/30/2020 DISCHARGE DATE: 06/30/20 1140 VISIT LOCKED DATE TIME: PHYSICIAN: HORACE CHOU MD RESOURCE: HORACE CHOU MD REASON FOR APPOINTMENT 1. PRESEDATE FOR SPINAL TAP HISTORY OF PRESENT ILLNESS GENERAL: 25-YEAR-OLD FEMALE PATIENT WITH HISTORY OF SOME MIGRAINES AND NEUROLOGICAL CHANGES FOR A YEAR AND A HALF. THE PATIENT HAS BEEN INFORMED THAT SHE HAS A PSEUDO TUMOR CEREBRI . SHE HAS TRIED SPINAL TAPS IN THE PAST WITH SOME DIFFICULTY. THE PATIENT HAS BEEN REFERRED HERE FOR A SPINAL TAP. SHE IS HAVING HEADACHES, DIZZINESS, NUMBNESS AND TINGLING OVER THE UPPER AND LOWER EXTREMITIES. THEY PATIENT HAS BEEN HOSPITALIZED AND HAS BEEN IN THE EMERGENCY ROOM. THIS IS A PROBLEM THAT THE PATIENT NEEDS HELP WITH. FALL RISK SCREENING: SCREENING :TWO OR MORE FALLS WITH INJURY IN THE PAST YEAR STATES FREQUENTLY LOSES BALANCE. PAIN SCREENING: PATIENT HAS A COMPLAINT OF ACUTE OR CHRONIC PAIN :YES LOCATION OF PAIN:NECK, BOTH SHOULDERS, UPPER BACK, LOW BACK HEAD, BEHIND EYES INTENSITY OF PAIN (SCALE OF 1 TO 10): 6-7/10 WHAT DOES YOUR PAIN FEEL LIKE:ACHING, SHARP, THROBBING DURATION:CONTINOUS PAIN IS INCREASED BY:ACTIVITIES, PROLONGED STANDING, OTHERS LIGHT, SOUND, DRIVING, SHOWERING PAIN IS DECREASED BY:OTHERS DARK, QUIET ENVIRONMENT, REST, HEATING PAD, ICE NURSING NOTE: - - -. PAIN CENTER INTAKE QUESTIONS: DO YOU HAVE A HISTORY OF MRSA? :NO DO YOU TAKE A BLOOD THINNERS? :NO DO YOU HAVE ANY BLEEDING DISORDERS? :NO ANY NEW NUMBNESS OR WEAKNESS IN YOUR LEGS OR ARMS? :NO ANY PACEMAKER,DEFIBRILLATOR, OR DORSAL COLUMN STIMULATOR? :NO DO YOU HAVE ANY RASHES OR OPEN SORES? :NO STATES HAD CYST ON SHOULDER AND IS HAVING STITCHES REMOVED 07/03/20. ARE YOU ALLERGIC TO IV DYE? :NO ARE YOU DIABETIC? :NO STATES HAD GESTATIONAL DIABETES DURING LAST (2018) ANY NEW PROBLEMS WITH YOUR MEDICATIONS? :YES INEFFECTIVE AND GI ISSUES - STATES HAS DISCUSSED WITH PRIMARY CARE PROVIDER. ALSO THINKS MAY BE CAUSING KIDNEY STONES. HAVE YOU RECEIVED A VACCINE IN THE PAST 30 DAYS? :NO DO YOU PLAN TO RECEIVE A VACCINE IN THE NEXT 21 DAYS? :NO DO YOU NEED ANY PRESCRIPTION? :NO DO YOU TAKE ANY IMMUNOSUPPRESSIVE MEDICATIONS? :NO CURRENT MEDICATIONS TAKING ACETAZOLAMIDE ER 500 MG CAPSULE EXTENDED RELEASE 12 HOUR 2 CAPSULES ORALLY TWICE A DAY TAKING FIORICET 50-300-40 MG CAPSULE 1 CAPSULE NEEDED ORALLY TAKING TYLENOL PM 1 TAB ORAL AT BEDTIME NEEDED TAKING VERAPAMIL HCL 40 MG TABLET 1 TABLET ORALLY THREE TIMES A DAY MEDICATION LIST REVIEWED AND RECONCILED WITH THE PATIENT PAST MEDICAL HISTORY PSEUDOTUMOR CEREBRI MIGRAINE HEADACHES ANXIETY DEPRESSION ALLERGIES IMITREX: HIVES, CHEST PAIN, HYPERTENSION - ALLERGY PENICILLIN (FOR ALLERGIES USE ONLY): HIVES, GI ISSUES - ALLERGY AMOXICILLIN: HIVES, GI ISSUES - ALLERGY SURGICAL HISTORY WISDOM TEETH EXTRACTION 2012 FAMILY HISTORY FATHER: ALIVE, OBSTRUCTIVE SLEEP APNEA MOTHER: ALIVE, THYROID/LARYNGEAL TUMOR, CERVICAL/UTERINE CANCER, ANAPHYLACTIC RESPONSE TO ANESTHESIA SOCIAL HISTORY GENERAL: TOBACCO USE ARE YOU A:NONSMOKER LATEX QUESTIONNAIRE LATEX ALLERGY : HAVE YOU EVER DEVELOPED ANY TYPE OF REACTION AFTER HANDLING LATEX PRODUCTS SUCH RUBBER GLOVES, CONDOMS, DIAPHRAGMS, BALLOONS, SOCKS, OR UNDERWEAR?NO LATEX ALLERGY : HAVE YOU EVER DEVELOPED ANY TYPE OF REACTION DURING OR AFTER DENTAL APPOINTMENT, VAGINAL/RECTAL EXAMINATION, SURGICAL PROCEDURE, OR ANY OTHER EXPOSURE?NO LATEX RISK : HAVE YOU EVER HAD ANY DIFFICULTY BREATHING OR HIVES AFTER EATING OR HANDLING ANY FRUITS, OR VEGETABLES; SUCH KIWI, BANANAS, STONE FRUITS, OR CHESTNUTSNO LATEX RISK : DO YOU HAVE A PREVIOUS PERSONAL HISTORY OF MORE THAN NINE SURGERIES, SPINA BIFIDA, OR REPEATED CATHERIZATIONS? NO LATEX RISK : ARE YOU FREQUENTLY EXPOSED TO LATEX PRODUCTS IN YOUR OCCUPATION?NO DATE ASKED : 06/30/2020 ALCOHOL SCREENING DID YOU HAVE A DRINK CONTAINING ALCOHOL IN THE PAST YEAR?NO POINTS0 INTERPRETATIONNEGATIVE RECREATIONAL DRUG USE DRUG USE?NO LEARNING BARRIERS / SPECIAL NEEDS BARRIERS TO LEARNING?NO HEARING IMPAIRED?NO VISION IMPAIRED?YES :CORRECTIVE LENSES COGNITIVELY IMPAIRED?NO READINESS TO LEARN?YES LEARNING PREFERENCES?NO LEARNING CAPABILITIES PRESENT?YES EMOTIONAL BARRIERS?NO SPECIAL DEVICES?NO DOMESTIC VIOLENCE DO YOU FEEL SAFE IN YOUR ENVIRONMENT?YES HOSPITALIZATION/MAJOR DIAGNOSTIC PROCEDURE PSEUDOTUMOR CEREBRI, PAPILLEDEMA 03/2019 CHILDBIRTH 2018 CHILDBIRTH 2016 CHILDBIRTH 2014 REVIEW OF SYSTEMS GLAUCOMA: NOTHYROID DISEASE: NOHYPERTENSION: NOHEART DISEASE: NOLUNG DISEASE: NODIABETES: NOGI DISEASE: NO LIVER DISEASE: NO KIDNEY DISEASE: NOSTERIOD USE: NONEUROLOGICAL DISEASE: NOBACK PROBLEMS: YES, PAINEXTREMITIES: NOGENITOURINARY: NOBLEEDING DISORDER: NOASA CLASS: IIAIRWAY CLASS: II. VITAL SIGNS WT 204.8 LBS, HT 57 IN, BMI 44.31 INDEX, BP 127/75 MM HG, HR 118 /MIN, RR 18 /MIN, TEMP 97.5 F, OXYGEN SAT % 96%, SAFE IN ENV? (Y/N) Y, NA INITIALS AW 1012, REVIEWED BY: EM. EXAMINATION GENERAL EXAMINATION: THE PATIENT IS ALERT, ORIENTED TIMES THREE AND COOPERATIVE. LUNGS ARE CLEAR TO AUSCULTATION. HEART SHOWS REGULAR RHYTHM, NO MURMURS AND NO GALLOPS. LEFT LEG IS A LITTLE WEAKER THAN THE RIGHT LEG ON FLEXION AND EXTENSION. IN THE PATIENT'S CHART, THERE ARE SOME NOTES FROM THE DR. CHASE FLOWERS REQUESTING THE SPINAL TAP FOR PSEUDO TUMOR CEREBRI. 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 HAQ. WE AGREE ON MOVING FORWARD WITH A SPINAL TAP WITH IV SEDATION DUE TO ANXIETY AND DISCOMFORT ASSOCIATED WITH THE PROCEDURE. THE PATIENT'S MOTHER HAS A HISTORY OF ISSUES WITH ANESTHESIA. I WOULD LIKE TO CLARIFY THIS BEFORE THE PROCEDURE. THE PATIENT REPORTS UNDERSTANDING AND AGREES WITH THE PLAN. I, TREY OSCAR, DOCUMENTED THE ABOVE INFORMATION ACTING A SCRIBE FOR DR. CHOU. I HAVE REVIEWED THE ABOVE DOCUMENT, WRITTEN BY TREY OSCRA, CABINET INSTALLER, AND I VERIFY THAT IT IS ACCURATE. PROCEDURE CODES FA211 ESTABILISHED PATIENT [facility] CHARGE [id number] OFFICE/OUTPATIENT VISIT EST DISPOSITION & COMMUNICATION FOLLOW UP OKAY TO BOOK, BOOK IN EXTRA LONG SPOT (REASON: SPINAL TAP) ELECTRONICALLY SIGNED BY HORACE CHOU MD, MD ON 07/03/2020 AT 04:30 PM EST DISCLAIMER : THIS IS A VISIT SUMMARY EXTRACTED FROM THE [employer] CHART. IT IS NOT A COPY OF THE [employer] PROGRESS NOTE. EDIN
== END ==
LOC: M PAIN 10:15
PROVIDERS: ATTEND Anesthesiology
DX: G93.2 Benign intracranial hypertension (principal); G43.909 Migraine, unspecified, not intractable, without status migrainosus; Z86.59 Personal history of other mental and behavioral disorders; Z88.0 Allergy status to penicillin; Z88.1 Allergy status to other antibiotic agents; Z88.8 Allergy status to other drugs, medicaments and biological substances; E66.01 Morbid (severe) obesity due to excess calories; Z68.41 Body mass index [BMI] 40.0-44.9, adult; Z79.899 Other long term (current) drug therapy

== ENCOUNTER → 2020-07-01 | Outpatient (CLI) | payer OTHER | LOC: M LABSMTC 08:34 | PROVIDERS: ATTEND Anesthesiology | DX: Z11.52 Encounter for screening for COVID-19 (principal) ==

== ENCOUNTER → 2020-07-04 | Outpatient (REF) | payer OTHER | LOC: M LAB REF 16:55 | PROVIDERS: ATTEND Physician Assistant | DX: R30.0 Dysuria (principal) ==

== ENCOUNTER → 2020-07-06 | Outpatient (CLI) | payer OTHER ==
[~2020-07-06] MED LIST changes: +LIDOCAINE 1% SDV 30ML VIAL As Ordered ONE; +MIDAZOLAM INJ 2MG/2ML VIAL (J2250 PER 1MG) As Ordered ONE; +ONDANSETRON 4MG/2ML VIAL As Ordered ONE; +diphenhydrAMINE 50MG/ML VIAL (J1200) As Ordered ONE; +fentaNYL 100 MCG/2 ML INJECTION (J3010) As Ordered ONE
[2020-07-06 14:56] LABS: APPEARANCE, CSF CLEAR (CLEAR); COLOR, CSF COLORLESS (COLORLESS); CSF TUBE# CELL CNT TUBE 3
[2020-07-06 15:07] LABS: CSF TUBE# GLU TUBE 1; CSF TUBE# TP TUBE 1; GLUCOSE CSF 52 MG/DL (40-75); TOTAL PROTEIN,CSF 33 MG/DL (15-45)
--- NOTE | 2020-07-06 23:28 | ECWPNPC ---
PATIENT NAME: JENNIFER HAQ : 1995 GENDER: FEMALE VISIT DATE: 07/06/2020 DISCHARGE DATE: 07/06/20 1458 VISIT LOCKED DATE TIME: PHYSICIAN: HORACE CHOU MD RESOURCE: HORACE CHOU MD REASON FOR APPOINTMENT 1. SPINAL TAP HISTORY OF PRESENT ILLNESS GENERAL: -. FALL RISK SCREENING: SCREENING :TWO OR MORE FALLS WITHOUT INJURY IN THE PAST YEAR PAIN SCREENING: PATIENT HAS A COMPLAINT OF ACUTE OR CHRONIC PAIN :YES LOCATION OF PAIN:HEAD, NECK, UPPER BACK INTENSITY OF PAIN (SCALE OF 1 TO 10):7 WHAT DOES YOUR PAIN FEEL LIKE:ACHING, BURNING, CONTINOUS, SHARP, STABBING, TENDER, THROBBING, SORE, SHOOTING STABBING/SHOOTING IN HEAD DURATION:CONTINOUS, CONSTANT PAIN IS INCREASED BY:ACTIVITIES, OTHERS "EVERYTHING" PAIN IS DECREASED BY:USE OF PAIN MEDICATIONS, OTHERS HEAT/ICE NURSING NOTE: -. PAIN CENTER INTAKE QUESTIONS: DO YOU HAVE A HISTORY OF MRSA? :NO DO YOU TAKE A BLOOD THINNERS? :NO DO YOU HAVE ANY BLEEDING DISORDERS? :NO ANY NEW NUMBNESS OR WEAKNESS IN YOUR LEGS OR ARMS? :NO ANY PACEMAKER,DEFIBRILLATOR, OR DORSAL COLUMN STIMULATOR? :NO DO YOU HAVE ANY RASHES OR OPEN SORES? :NO ARE YOU ALLERGIC TO IV DYE? :NO ARE YOU DIABETIC? :NO ANY NEW PROBLEMS WITH YOUR MEDICATIONS? :NO HAVE YOU RECEIVED A VACCINE IN THE PAST 30 DAYS? :NO DO YOU PLAN TO RECEIVE A VACCINE IN THE NEXT 21 DAYS? :NO DO YOU TAKE ANY IMMUNOSUPPRESSIVE MEDICATIONS? :NO ANY HISTORY OF SEIZURES? :NO ANY HISTORY OF CARDIAC ISSUES OR EVENTS? :YES RECENT EVALUATION FOR TACHYCARDIA WITH HOLTER MONITOR DO YOU HAVE ANY KIDNEY OR LIVER DISEASE? :NO DO YOU HAVE SLEEP APNEA? :NO ANY RECENT HEAD INJURY? :NO DO YOU HAVE ANY NEW INFECTIONS? :NO IS THERE A CHANCE YOU COULD BE ? :NO ARE YOU BREAST FEEDING? :NO WHEN DID YOU LAST EAT? : -07/05/20 1800 WHEN DID YOU LAST DRINK? : -07/06/20 1000 WHAT DID YOU LAST DRINK? : -WATER NAME OF PERSON DRIVING YOU HOME? : - BAKARI DO YOU HAVE ANY OTHER QUESTIONS OR CONCERNS? : - CURRENT MEDICATIONS TAKING ACETAZOLAMIDE ER 500 MG CAPSULE EXTENDED RELEASE 12 HOUR 2 CAPSULES ORALLY TWICE A DAY TAKING FIORICET 50-300-40 MG CAPSULE 1 CAPSULE NEEDED ORALLY TAKING TYLENOL PM 1 TAB ORAL AT BEDTIME NEEDED TAKING VERAPAMIL HCL 40 MG TABLET 1 TABLET ORALLY DAILY MEDICATION LIST REVIEWED AND RECONCILED WITH THE PATIENT PAST MEDICAL HISTORY PSEUDOTUMOR CEREBRI MIGRAINE HEADACHES ANXIETY DEPRESSION ALLERGIES IMITREX: HIVES, CHEST PAIN, HYPERTENSION - ALLERGY PENICILLIN (FOR ALLERGIES USE ONLY): HIVES, GI ISSUES - ALLERGY AMOXICILLIN: HIVES, GI ISSUES - ALLERGY SURGICAL HISTORY WISDOM TEETH EXTRACTION 2012 FAMILY HISTORY FATHER: ALIVE, OBSTRUCTIVE SLEEP APNEA MOTHER: ALIVE, THYROID/LARYNGEAL TUMOR, CERVICAL/UTERINE CANCER, ANAPHYLACTIC RESPONSE TO ANESTHESIA SOCIAL HISTORY GENERAL: TOBACCO USE ARE YOU A:NONSMOKER LATEX QUESTIONNAIRE LATEX ALLERGY : HAVE YOU EVER DEVELOPED ANY TYPE OF REACTION AFTER HANDLING LATEX PRODUCTS SUCH RUBBER GLOVES, CONDOMS, DIAPHRAGMS, BALLOONS, SOCKS, OR UNDERWEAR?NO LATEX ALLERGY : HAVE YOU EVER DEVELOPED ANY TYPE OF REACTION DURING OR AFTER DENTAL APPOINTMENT, VAGINAL/RECTAL EXAMINATION, SURGICAL PROCEDURE, OR ANY OTHER EXPOSURE?NO LATEX RISK : HAVE YOU EVER HAD ANY DIFFICULTY BREATHING OR HIVES AFTER EATING OR HANDLING ANY FRUITS, OR VEGETABLES; SUCH KIWI, BANANAS, STONE FRUITS, OR CHESTNUTSNO LATEX RISK : DO YOU HAVE A PREVIOUS PERSONAL HISTORY OF MORE THAN NINE SURGERIES, SPINA BIFIDA, OR REPEATED CATHERIZATIONS? NO LATEX RISK : ARE YOU FREQUENTLY EXPOSED TO LATEX PRODUCTS IN YOUR OCCUPATION?NO DATE ASKED : 07/05/2020 ALCOHOL SCREENING DID YOU HAVE A DRINK CONTAINING ALCOHOL IN THE PAST YEAR?NO POINTS0 INTERPRETATIONNEGATIVE RECREATIONAL DRUG USE DRUG USE?NO LEARNING BARRIERS / SPECIAL NEEDS BARRIERS TO LEARNING?NO HEARING IMPAIRED?NO VISION IMPAIRED?YES :CORRECTIVE LENSES COGNITIVELY IMPAIRED?NO READINESS TO LEARN?YES LEARNING PREFERENCES?NO LEARNING CAPABILITIES PRESENT?YES EMOTIONAL BARRIERS?NO SPECIAL DEVICES?NO DOMESTIC VIOLENCE DO YOU FEEL SAFE IN YOUR ENVIRONMENT?YES HOSPITALIZATION/MAJOR DIAGNOSTIC PROCEDURE PSEUDOTUMOR CEREBRI, PAPILLEDEMA 03/2019 CHILDBIRTH 2020 CHILDBIRTH 2016 CHILDBIRTH 2015 VITAL SIGNS WT 209.0 LBS, HT 57 IN, BMI 45.22 INDEX, BP 129/76 MM HG, HR 81 /MIN, RR 18 /MIN, TEMP 97.0 F, OXYGEN SAT % 100%, NA INITIALS AW 1250. EXAMINATION GENERAL EXAMINATION: A HISTORY AND PHYSICAL EXAM ON THE PATIENT WAS DONE ON 06/30/2020 (DATE OF ORIGINAL ASSESSMENT) IN PREPARATION OF SURGERY/PROCEDURE. I HAVE NOW REASSESSED THIS PATIENT'S HEALTH STATUS AND PERFORMED AN UPDATED EXAM TODAY. ALL CHANGES IN THE PATIENT'S HISTORY, PHYSICAL EXAM, PRE-EXISTING CONDITONS, AND INDICATIONS/CONTRAINDICATIONS TO THE PLANNED PROCEDURE AND ANESTHESIA ARE DOCUMENTED AND EVALUATED BELOW. I ATTEST TO THE ADEQUACY AND APPROPRIATENESS OF MY ASSESSMENT, AND CONFIRM THE NECESSITY FOR THE PLANNED PROCEDURE. THE PATIENT IS ALERT, ORIENTED TIMES THREE AND COOPERATIVE. LUNGS ARE CLEAR TO AUSCULTATION. HEART SHOWS REGULAR RHYTHM, NO MURMURS AND NO GALLOPS. ASSESSMENTS PSEUDOTUMOR CEREBRI - G93.2 (PRIMARY) TREATMENT PSEUDOTUMOR CEREBRI MEDICATION: FENTANYL CITRATE 25MCG IVTREY OSCAR 07/06/2020 01:46:44 PM - SECOND DOSE ORDERED, VERIFIED WITH TREY ARAYA 07/06/2020 01:53:26 PM - THIRD DOSE ORDERED, VERIFIED WITH ANURADHA MALONE 07/06/2020 2:27:25 PM > 1ST DOSE AT 1344, 2 ND DOSE AT 1346, 3RD DOSE AT 1353 FOR A TOTAL DOSE OF 125 MCG WITH THE 50 MCG DOSE COMPLETION OF PROCEDURAL VISIT WHEN MEETS CRITERIA MED: PAIN BENADRYL 25MG IV DIPHENHYDRAMINEANURADHA SYED 07/06/2020 2:23:13 PM > 25 MG ADMINISTERED AT 1337 MED: VERSED 1MG IV MIDAZOLAMDOMI STAFFORD 07/06/2020 12:18:48 PM > VERIFIED TREY OSCAR 07/06/2020 01:41:32 PM - SECOND DOSE ORDERED, VERIFIED WITH TREY ARAYA 07/06/2020 01:47:43 PM - THIRD DOSE ORDERED, VERIFIED WITH TREY ARAYA 07/06/2020 01:52:40 PM - FOURTH DOSE ORDERED, VERIFIED WITH ANURADHA MALONE 07/06/2020 2:25:38 PM > 1 ST DOSE AT 1338, 2 ND DOSE AT 1341, 3 RD DOSE AT 1347, 4 TH DOSE AT 1352 FOR A TOTAL DOSE OF 4 MG MEDICATION: FENTANYL CITRATE 50MCG IV NYDIADOMI ISLAS 07/06/2020 12:19:01 PM > VERIFIED KUNALANURADHA 07/06/2020 2:28:21 PM > ADMINISTERED AT 1350 OXYGEN AT 2 LITERS PER NASAL CANNULA IV LACTATED RINGER'S AT SARARAVEN 07/06/2020 1:06:31 PM > 1300 - 20G IV ACCESS OBTAINED IN [facility] ON FIRST ATTEMPT. PATIENT TOLERATED WELL. IV LR RUNNING AT KVO. TBRADLEYRN MEDICATION: PAIN ZOFRAN 4MG/2ML IV ONDANSETRONTREY OSCAR 06/30/2020 11:30:34 AM - GIVE HER ZOFRAN BEFORE GOING INTO ROOM DOMI STAFFORD 07/06/2020 12:20:19 PM > VERIFIED RAVEN NEGRON 07/06/2020 1:03:07 PM > ADMINISTERED OTHERS NOTES: PAT COMPLETED 07/05/20 M KUSH FLETCHER. PROCEDURES PAIN NURSING RECORD PROCEDURE IN ROOM 1315, ECG NORMAL SINUS, PATIENT SHIELDED YES, SAFETY STRAP N/A, PREP BETADINE BY DR CHOU, DRESSING TEGADERM BY DR CHOU LOC: 1. ALERT, ORIENTED, JAMILRAVEN 07/06/2020 1:25:39 PM > RESP: 1. REGULAR, NO DYSPNEA, JAMILRAVEN 07/06/2020 1:25:49 PM > COLOR: 1. PINKJAMILRAVEN 07/06/2020 1:25:56 PM > SKIN: 1. WARM, DRY, [facility] 1:26:03 PM > POSITION: 3. LATERAL, JAMILRAVEN 07/06/2020 1:26:13 PM > VITALS: HR 88, 148/90, 100%, [facility] 07/06/2020 1:26:56 PM > 1330- 133/71, 82HR, 100%, [facility] 07/06/2020 1335 - HR 83, 132/76, 100%, R16 [facility] 07/06/2020 1340 - HR89, 134/76, 100%, [facility] 07/06/2020 1345 - HR 87, 136/76, 100%, R16 [facility] 07/06/2020 1350 - HR 92, 139/79, 100%, R1JAMIL DavenportRAVEN 07/06/2020 1355 - HR 92, 134/81, 100%, R1JAMIL DavenportRAVEN 07/06/2020 1400 - HR 79, 133/75, 100%, JAMIL MartellRAVEN 07/06/2020 1405 - HR 91, 135/85, 100% JAMIL MartellRAVEN 07/06/2020 1420 HR 81, 136/66, 100% R1Issac NEGRONRAVEN 07/06/2020 1440- EXIT VITALS - HR 76, 117/69, 100%, R1JAMIL DavenportRAVEN 07/06/2020 NOTES David NEGRON RN COMPLETION OF PROCEDURE APPOINTMENT: POST PAIN 0, DRESSING SITE DRY AND INTACT MID LOWER BACK, IV DISCONTINUED, SITE CLEAR, N/A, CATHETER INTACT 400ML OF LR GIVEN, GAIT WHEELCHAIR, TEACHING COMPLETED, PATIENT ACKNOWLEDGES UNDERSTANDING YES, PROCEDURE APPOINTMENT COMPLETED AT 1250 BY: David NEGRON RN : PATIENT IS WAITING IN WHEELCHAIR WAITING FOR S/O TO PICK HER UP. PATIENT WILL BE TAKEN DOWN BY WHEELCHAIR TO HER VEHICLE ON HIS ARRIVAL. TBRADLEYRN PRE PROCEDURE DIAGNOSIS NEUROLOGICAL SYMPTOMS, PSEUDOTUMOR CEREBRI PROCEDURE SPINAL TAP PRE PROCEDURE NOTE THE PATIENT HAS A HISTORY OF PSEUDOTUMOR CEREBRI. THE PATIENT WAS REFERRED HERE BY DR. FLOWERS FOR A SPINAL TAP FOR A PSEUDOTUMOR CEREBRI. THE PATIENT WAS INTERVIEWED, EXAMINED AND TREATMENT QUESTIONNAIRES REVIEWED. THE PROCEDURE, RISKS AND BENEFITS WERE DISCUSSED WITH THE PATIENT. I DISCUSSED WITH THE PATIENT THAT I WILL NOT RECEIVE THE RESULTS FROM THIS TEST AND THAT THEY WILL HAVE TO FOLLOW UP WITH DR. FLOWERS FOR THE RESULTS. THE PATIENT WOULD LIKE TO MOVE FORWARD WITH IV SEDATION DUE TO ANXIETY AND DISCOMFORT ASSOCIATED WITH THE PROCEDURE. THE PATIENT DENIES UNEXPLAINABLE, WEIGHT LOSS, FEVER, CHILLS, OR CHANGES IN URINARY OR BOWEL CONTROL. THE PATIENT IS COVID-19 NEGATIVE DESCRIPTION OF PROCEDURE AFTER CONSENT WAS TAKEN, THE PATIENT WAS BROUGHT TO THE PROCEDURE ROOM AND PLACED IN THE LEFT LATERAL POSITION. THE LUMBOSACRAL AREA WAS CLEANED WITH BETADINE SOLUTION AND DRAPED ASEPTICALLY. THE PROCEDURE WAS DONE UNDER STERILE CONDITIONS. A TIMEOUT WAS PERFORMED WHERE THE CONSENTED SITE WAS VERIFIED WITH EVERYONE IN THE ROOM. LOCAL INFILTRATE 1 % LIDOCAINE WAS USED TO NUMB THE SKIN AND SUBCUTANEOUS TISSUE BELOW IT AT THE APPROXIMATELY THE L4-L5 INTERSPACE. A 22-GAUGE QUINCKE NEEDLE WAS ADVANCED UNTIL THE DURA WAS FELT AND CSF WAS FREE-FLOWING. THERE WAS NO BLOOD RETURN ENCOUNTERED. NO PARESTHESIA WAS ENCOUNTERED. OPENING PRESSURE WAS MEASURED AT 36 CM OF WATER. 4 VIALS OF 3 ML OF CSF WAS COLLECTED. CSF WAS CLEAR. CSF WAS SENT FOR STUDIES ORDERED BY THE REFERRING PHYSICIAN. VITAL SIGNS WERE STABLE. THERE WERE NO COMPLICATIONS. ESTIMATED BLOOD LOSS WAS LESS THAN 5 ML. THE PATIENT WAS SENT TO THE RECOVERY ROOM WHERE HE WAS MOVING HIS EXTREMITIES AND DOING WELL. THE PATIENT RECEIVED VERSED 4 MG AND FENTANYL 125 MCG IV IN DIVIDED DOSES. FACE TO FACE START TIME: 1337 FACE TO FACE END TIME: 1409 TOTAL FACE TO FACE TIME: 32 MINUTES POST PROCEDURE NOTE I DISCUSSED THE PROCEDURE WITH THE PATIENT. I WILL SEND THE CSF FOR STUDIES. THE PATIENT WILL FOLLOW UP WITH DR. FLOWERS. THE PATIENT WILL CALL OUR OFFICE NEEDED. I, TREY OSCAR, DOCUMENTED THE ABOVE INFORMATION ACTING A SCRIBE FOR DR. CHOU. I HAVE REVIEWED THE ABOVE DOCUMENT, WRITTEN BY SHYLA MA, AND I VERIFY THAT IT IS ACCURATE. PROCEDURE CODES 53465 SPINAL FLUID TAP DIAGNOSTIC 65756 MOD SED SAME PHYS/QHP 5/>YRS 69373 MOD SED SAME PHYS/QHP EA DISPOSITION & COMMUNICATION FOLLOW UP FOLLOW UP WITH NEUROLOGIST (REASON: CALL OUR OFFICE IF NEEDED) ELECTRONICALLY SIGNED BY HORACE CHOU MD, MD ON 07/06/2020 AT 04:19 PM EST DISCLAIMER : THIS IS A VISIT SUMMARY EXTRACTED FROM THE [employer] CHART. IT IS NOT A COPY OF THE [employer] PROGRESS NOTE. EDIN
== END ==
LOC: M PAIN 12:30
PROVIDERS: ATTEND Anesthesiology
DX: G93.2 Benign intracranial hypertension (principal); G43.909 Migraine, unspecified, not intractable, without status migrainosus; F41.9 Anxiety disorder, unspecified; F32.9 Major depressive disorder, single episode, unspecified; Z79.899 Other long term (current) drug therapy
CPT/HCPCS: 62270; 82784; 82945; 83916; 84157; 87070; 87102; 87205; 87252; 87483; 88108; 88313; 89050; 99152; 99153; J1200; J2250; J2405; J3010

== ENCOUNTER → 2020-07-06 | Outpatient (CLI) | payer OTHER ==
[~2020-07-06] MED LIST changes: -LIDOCAINE 1% SDV 30ML VIAL As Ordered ONE; -MIDAZOLAM INJ 2MG/2ML VIAL (J2250 PER 1MG) As Ordered ONE; -ONDANSETRON 4MG/2ML VIAL As Ordered ONE; -diphenhydrAMINE 50MG/ML VIAL (J1200) As Ordered ONE; -fentaNYL 100 MCG/2 ML INJECTION (J3010) As Ordered ONE
== END ==
LOC: M LAB 12:11
PROVIDERS: ATTEND Psychiatry & Neurology Neurology
DX: G93.2 Benign intracranial hypertension (principal)

== ENCOUNTER → 2020-07-13 | Outpatient (REF) | payer OTHER ==
[2020-07-13 13:26] LABS: APPEARANCE, URINE CLEAR (CLEAR); BACTERIA, URINE AUTO NEGATIVE (NEGATIVE); BILIRUBIN, URINE AUTO NEGATIVE (NEGATIVE); BLOOD, URINE BLOOD 3+ (NEGATIVE); COLOR, URINE STRAW (YELLOW); GLUCOSE, URINE (UA) AUTO NEGATIVE (NEGATIVE); KETONE, URINE AUTO NEGATIVE (NEGATIVE); LEUKOCYTE ESTERASE, URINE AUTO TRACE (NEGATIVE); MUCUS, URINE SMALL (NEGATIVE); NITRITE, URINE AUTO NEGATIVE (NEGATIVE); PROTEIN, URINE AUTO NEGATIVE (NEGATIVE); RBC, URINE AUTO 18 /HPF (0-3); SPECIFIC GRAVITY URINE AUTO 1.005 (1.002-1.035); SQUAMOUS EPITHELIAL CELL UR AU 1 /HPF (0-6); UROBILINOGEN, URINE AUTO 0.2 mg/dL (0.0-2.0); WBC, URINE AUTO 3 /HPF (0-3)
== END ==
LOC: M SMT 12:58
PROVIDERS: ATTEND Nurse Practitioner Women's Health
DX: R30.0 Dysuria (principal)

== ENCOUNTER → 2020-07-13 | Outpatient (REF) | payer OTHER | LOC: M SMT 12:29 | PROVIDERS: ATTEND Nurse Practitioner Women's Health | DX: R30.0 Dysuria (principal) ==

== ENCOUNTER → 2020-07-14 | Outpatient (CLI) | payer OTHER ==
--- NOTE | 2020-07-14 13:27 | REP ---
INDICATION: THYROID NODULE COMPARISON: None. TECHNIQUE: Logan scale and color evaluation of the thyroid gland using curved array and linear high frequency transducer. FINDINGS: The thyroid gland is essentially normal in contour, size, and parenchymal echotexture. Right lobe measures 4.9 x 2.0 x 1.4 cm. Isthmus measures 4.7 mm in width. Left lobe measures 4.4 x 1.8 x 1.6 cm with a vague 2.8 x 4.1 x 2.9 mm hypoechoic nodule along the medial midpole. IMPRESSION: 4 mm vague hypoechoic nodule in the left lobe which is indeterminate in appearance. <Electronically signed by Shan Hutson > 07/14/20 [id number]
== END ==
LOC: M RAD 12:55
PROVIDERS: ATTEND Physician Assistant
DX: E04.1 Nontoxic single thyroid nodule (principal)

== ENCOUNTER → 2020-07-19 | Outpatient (CLI) | payer OTHER ==
[2020-07-19 11:33] LABS: BASO # 0.1 10^3/uL (0.0-0.2); EOS # 0.1 10^3/uL (0.0-0.5); EOS % 1.3 % (0.0-3.0); HEMATOCRIT 40.1 % (36.0-47.0); HEMOGLOBIN 12.4 g/dl (12.0-15.5); LYMPH # 1.1 10^3/uL (1.5-5.0); LYMPH % 17.3 % (24.0-44.0); MEAN CORPUSCULAR HEMOGLOBIN 29.8 pg (27.0-33.0); MEAN CORPUSCULAR HGB CONC 30.9 g/dl (32.0-36.5); MEAN CORPUSCULAR VOLUME 96.4 fl (80.0-96.0); MONO # 0.3 10^3/uL (0.0-0.8); MONO % 4.6 % (2.0-8.0); NEUTROPHILS # 4.8 10^3/uL (1.5-8.5); NEUTROPHILS % 75.3 % (36.0-66.0); PLATELET COUNT, AUTOMATED 248 10^3/uL (150-450); RED BLOOD COUNT 4.16 10^6/uL (4.00-5.40); WHITE BLOOD COUNT 6.3 10^3/uL (4.0-10.0)
[2020-07-19 12:09] LABS: ALBUMIN 3.8 GM/DL (3.2-5.2); ALT/SGPT 38 U/L (12-78); BILIRUBIN,TOTAL 0.1 MG/DL (0.2-1.0); BLOOD UREA NITROGEN 7 MG/DL (7-18); CALCIUM LEVEL 9.2 MG/DL (8.5-10.1); CARBON DIOXIDE LEVEL 25 MEQ/L (21-32); CHLORIDE LEVEL 113 MEQ/L (98-107); CREATININE FOR GFR 0.54 MG/DL (0.55-1.30); FREE T4 0.74 NG/DL (0.76-1.46); GLOMERULAR FILTRATION RATE > 60.0 (>60); GLUCOSE, FASTING 83 MG/DL (70-100); POTASSIUM SERUM 4.4 MEQ/L (3.5-5.1); SODIUM LEVEL 143 MEQ/L (136-145); TOTAL PROTEIN 6.6 GM/DL (6.4-8.2)
[2020-07-19 12:16] LABS: THYROID PEROXIDASE ANTIBODY 32.5 U/ML (<60.0); TOTAL 25(OH) VITAMIN D 9.1 NG/ML (30.0-100.0)
== END ==
LOC: M LAB 09:34
PROVIDERS: ATTEND Physician Assistant
DX: E04.1 Nontoxic single thyroid nodule (principal)

== ENCOUNTER → 2020-07-24 | Outpatient (CLI) | payer OTHER ==
--- NOTE | 2020-07-24 15:25 | REP ---
INDICATION: DIFFICULTY URINATING, BLADDER PAIN. COMPARISON: None. TECHNIQUE: Real-time sonographic evaluation of the kidneys is performed. FINDINGS: Renal cortical echogenicity pattern is normal bilaterally and contours are smooth. There is no evidence of hydronephrosis, cyst, mass, or calculus in either kidney. The right kidney measures 13.1 x 4.8 x 4.8 cm. Left renal dimensions are 11.9 x 4.8 x 4.3 cm. IMPRESSION: Negative renal ultrasound. <Electronically signed by Evaristo Logan > 07/24/20 1525
--- NOTE | 2020-07-24 15:26 | REP ---
INDICATION: DIFFICULTY URINATING, BLADDER PAIN. COMPARISON: None. TECHNIQUE: Real-time sonographic evaluation of urinary bladder performed. FINDINGS: Urinary bladder is not well distended although the patient states she feels full. The bladder measures 5.8 x 6.8 x 3.2 cm. There is no gross bladder wall thickening or mass and no evidence of calculus. There is no postvoid residual after voiding. IMPRESSION: Suboptimal distention. No gross bladder abnormality. No postvoid residual. <Electronically signed by Evaristo Logan > 07/24/20 [id number]
== END ==
LOC: M RAD 13:32
PROVIDERS: ATTEND Nurse Practitioner Women's Health
DX: R30.0 Dysuria (principal); R39.89 Other symptoms and signs involving the genitourinary system

== ENCOUNTER → 2020-08-16 | Outpatient (CLI) | payer OTHER ==
[2020-08-16 11:54] LABS: BASO % 0.8 % (0.0-1.0); EOS # 0.1 10^3/uL (0.0-0.5); EOS % 1.1 % (0.0-3.0); HEMATOCRIT 43.5 % (36.0-47.0); HEMOGLOBIN 13.7 g/dl (12.0-15.5); MEAN CORPUSCULAR HEMOGLOBIN 29.8 pg (27.0-33.0); MEAN CORPUSCULAR HGB CONC 31.5 g/dl (32.0-36.5); MEAN CORPUSCULAR VOLUME 94.8 fl (80.0-96.0); MONO # 0.3 10^3/uL (0.0-0.8); MONO % 6.4 % (2.0-8.0); NEUTROPHILS # 3.9 10^3/uL (1.5-8.5); NEUTROPHILS % 73.1 % (36.0-66.0); PLATELET COUNT, AUTOMATED 247 10^3/uL (150-450); RED BLOOD COUNT 4.59 10^6/uL (4.00-5.40); WHITE BLOOD COUNT 5.3 10^3/uL (4.0-10.0)
[2020-08-16 12:06] LABS: INR 1.03; PROTHROMBIN TIME 13.8 SECONDS (12.5-14.3)
[2020-08-16 12:07] LABS: PARTIAL THROMBOPLASTIN TIME 28.3 SECONDS (24.2-38.5)
[2020-08-16 13:21] LABS: APPEARANCE, URINE TURBID (CLEAR); BACTERIA, URINE AUTO NEGATIVE (NEGATIVE); BILIRUBIN, URINE AUTO NEGATIVE (NEGATIVE); BLOOD, URINE BLOOD 1+ (NEGATIVE); COLOR, URINE YELLOW (YELLOW); GLUCOSE, URINE (UA) AUTO NEGATIVE (NEGATIVE); KETONE, URINE AUTO TRACE mg/dL (NEGATIVE); LEUKOCYTE ESTERASE, URINE AUTO 3+ (NEGATIVE); MUCUS, URINE LARGE (NEGATIVE); NITRITE, URINE AUTO NEGATIVE (NEGATIVE); PROTEIN, URINE AUTO 2+ mg/dL (NEGATIVE); RBC, URINE AUTO 9 /HPF (0-3); SPECIFIC GRAVITY URINE AUTO 1.029 (1.002-1.035); SQUAMOUS EPITHELIAL CELL UR AU 40 /HPF (0-6); UROBILINOGEN, URINE AUTO 0.2 mg/dL (0.0-2.0); WBC, URINE AUTO 22 /HPF (0-3)
[2020-08-16 14:15] LABS: ALBUMIN 4.1 GM/DL (3.2-5.2); ALT/SGPT 31 U/L (12-78); BILIRUBIN,TOTAL 0.5 MG/DL (0.2-1.0); BLOOD UREA NITROGEN 11 MG/DL (7-18); CARBON DIOXIDE LEVEL 27 MEQ/L (21-32); CHLORIDE LEVEL 107 MEQ/L (98-107); CREATININE FOR GFR 0.72 MG/DL (0.55-1.30); FREE T4 1.16 NG/DL (0.76-1.46); GLOMERULAR FILTRATION RATE > 60.0 (>60); GLUCOSE, FASTING 87 MG/DL (70-100); POTASSIUM SERUM 4.1 MEQ/L (3.5-5.1); SODIUM LEVEL 141 MEQ/L (136-145); THYROID STIMULATING HORMONE 0.937 uIU/ML (0.358-3.740); TOTAL PROTEIN 7.3 GM/DL (6.4-8.2)
== END ==
LOC: M LAB 10:32
PROVIDERS: ATTEND Physician Assistant
DX: Z01.818 Encounter for other preprocedural examination (principal)

== ENCOUNTER → 2020-08-21 | Outpatient (CLI) | payer OTHER ==
[2020-08-21 14:20] LABS: APPEARANCE, URINE CLOUDY (CLEAR); BACTERIA, URINE AUTO 1+ (NEGATIVE); BILIRUBIN, URINE AUTO NEGATIVE (NEGATIVE); BLOOD, URINE BLOOD 2+ (NEGATIVE); COLOR, URINE YELLOW (YELLOW); GLUCOSE, URINE (UA) AUTO NEGATIVE (NEGATIVE); KETONE, URINE AUTO 1+ mg/dL (NEGATIVE); LEUKOCYTE ESTERASE, URINE AUTO 3+ (NEGATIVE); MUCUS, URINE SMALL (NEGATIVE); NITRITE, URINE AUTO NEGATIVE (NEGATIVE); PROTEIN, URINE AUTO 1+ mg/dL (NEGATIVE); RBC, URINE AUTO 17 /HPF (0-3); SPECIFIC GRAVITY URINE AUTO 1.024 (1.002-1.035); SQUAMOUS EPITHELIAL CELL UR AU 16 /HPF (0-6); UROBILINOGEN, URINE AUTO 0.2 mg/dL (0.0-2.0); WBC, URINE AUTO 57 /HPF (0-3)
== END ==
LOC: M LAB 13:47
PROVIDERS: ATTEND Physician Assistant
DX: Z01.818 Encounter for other preprocedural examination (principal)

== ENCOUNTER → 2020-10-11 | Outpatient (CLI) | payer OTHER ==
[~2020-10-11] MED LIST changes: +BACTDSTA PO; -SULF1TAB93 PO
--- NOTE | 2020-10-11 11:12 | REPVR ---
PROCEDURE INFORMATION: Exam: CT Head Without Contrast Exam date and time: 10/11/2020 9:06 AM Age: 25 years old Clinical indication: Other: Benign intracranial hypertension TECHNIQUE: Imaging protocol: Computed tomography of the head without contrast. Radiation optimization: All CT scans at this facility use at least one of these dose optimization techniques: automated exposure control; mA and/or kV adjustment per patient size (includes targeted exams where dose is matched to clinical indication); or iterative reconstruction. COMPARISON: None FINDINGS: Brain: Symmetric caliber of the cortical sulci. Normal ruiz-white matter differentiation. No acute cortical infarct, mass effect, or intracranial hemorrhage. Cerebral ventricles: Termination of right frontal ventriculostomy in the region of the anterior 3rd ventricle. Asymmetric caliber of the frontal horns. No hydrocephalus. Paranasal sinuses: Bilateral ethmoid sinus mucoperiosteal disease. Mastoid air cells: No mastoid effusion. Bones/joints: Right frontal jean hole. Soft tissues: Unremarkable soft tissues. IMPRESSION: No acute intracranial pathology. Electronically signed by: David Centeno On 10/11/2020 11:12:15 AM
== END ==
LOC: M RAD 08:52
DX: G93.2 Benign intracranial hypertension (principal); Z98.2 Presence of cerebrospinal fluid drainage device

== ENCOUNTER → 2020-10-17 | Outpatient (CLI) | payer OTHER ==
--- NOTE | 2020-10-18 06:45 | REP ---
INDICATION: THYROID NODULE, FM HX THYROID CANCER COMPARISON: 07/14/2020 TECHNIQUE: Logan scale and color evaluation of the thyroid gland using the linear high frequency transducer. FINDINGS: The thyroid gland is essentially normal in contour, shape, size, and echogenicity. No nodule/mass or cystic abnormalities are appreciated. Right thyroid lobe measures 4.6 x 2.0 x 1.9 cm. Isthmus measures 5.0 mm in width. Left thyroid lobe measures 4.8 x 2.0 x 1.8 cm and includes 4 x 4 x 4 mm hypoechoic midpole nodule. IMPRESSION: Small 4 mm nonspecific hypoechoic likely benign nodule in the left thyroid lobe unchanged from prior examination. <Electronically signed by Shan Hutson > 10/18/20 [id number]
== END ==
LOC: M RAD 14:10
PROVIDERS: ATTEND Physician Assistant
DX: E04.1 Nontoxic single thyroid nodule (principal)

== ENCOUNTER → 2020-10-27 | Outpatient (CLI) | payer OTHER ==
[2020-10-27 09:17] LABS: BASO # 0.1 10^3/uL (0.0-0.2); EOS # 0.1 10^3/uL (0.0-0.5); EOS % 1.9 % (0.0-3.0); HEMATOCRIT 39.9 % (36.0-47.0); HEMOGLOBIN 12.4 g/dl (12.0-15.5); LYMPH # 1.2 10^3/uL (1.5-5.0); LYMPH % 24.7 % (24.0-44.0); MEAN CORPUSCULAR HEMOGLOBIN 28.8 pg (27.0-33.0); MEAN CORPUSCULAR HGB CONC 31.1 g/dl (32.0-36.5); MEAN CORPUSCULAR VOLUME 92.8 fl (80.0-96.0); MONO # 0.3 10^3/uL (0.0-0.8); MONO % 6.7 % (2.0-8.0); NEUTROPHILS # 3.2 10^3/uL (1.5-8.5); NEUTROPHILS % 65.5 % (36.0-66.0); PLATELET COUNT, AUTOMATED 212 10^3/uL (150-450); WHITE BLOOD COUNT 4.8 10^3/uL (4.0-10.0)
[2020-10-27 09:50] LABS: ALBUMIN 3.9 GM/DL (3.2-5.2); ALT/SGPT 29 U/L (12-78); BILIRUBIN,TOTAL 0.4 MG/DL (0.2-1.0); BLOOD UREA NITROGEN 8 MG/DL (7-18); CARBON DIOXIDE LEVEL 25 MEQ/L (21-32); CHLORIDE LEVEL 110 MEQ/L (98-107); CREATININE FOR GFR 0.63 MG/DL (0.55-1.30); FREE T4 1.07 NG/DL (0.76-1.46); GLOMERULAR FILTRATION RATE > 60.0 (>60); GLUCOSE, FASTING 85 MG/DL (70-100); POTASSIUM SERUM 3.8 MEQ/L (3.5-5.1); SODIUM LEVEL 141 MEQ/L (136-145); TOTAL 25(OH) VITAMIN D 17.7 NG/ML (30.0-100.0); TOTAL PROTEIN 6.6 GM/DL (6.4-8.2)
== END ==
LOC: M LAB 08:08
PROVIDERS: ATTEND Physician Assistant
DX: E04.1 Nontoxic single thyroid nodule (principal)

== ENCOUNTER → 2021-02-19 | Outpatient (CLI) | payer OTHER ==
[2021-02-19 11:49] LABS: HEMOGLOBIN A1c 5.3 %
[2021-02-19 11:54] LABS: HCG, SERUM QUALITATIVE NEGATIVE (NEGATIVE)
[2021-02-19 11:55] LABS: ALBUMIN 3.8 GM/DL (3.2-5.2); ALT/SGPT 19 U/L (12-78); BILIRUBIN,TOTAL 0.4 MG/DL (0.2-1.0); BLOOD UREA NITROGEN 7 MG/DL (7-18); CALCIUM LEVEL 9.3 MG/DL (8.5-10.1); CARBON DIOXIDE LEVEL 27 MEQ/L (21-32); CHLORIDE LEVEL 109 MEQ/L (98-107); CREATININE FOR GFR 0.72 MG/DL (0.55-1.30); FOLLICLE STIMULATING HORMONE 4.6 mIU/mL; FREE T4 1.09 NG/DL (0.76-1.46); GLOMERULAR FILTRATION RATE > 60.0 (>60); GLUCOSE, FASTING 89 MG/DL (70-100); LUTEINIZING HORMONE 7.4 mIU/mL; POTASSIUM SERUM 4.5 MEQ/L (3.5-5.1); SODIUM LEVEL 140 MEQ/L (136-145); TOTAL PROTEIN 7.1 GM/DL (6.4-8.2)
[2021-02-19 20:23] LABS: BASO % 0.6 % (0.0-1.0); EOS % 0.6 % (0.0-3.0); HEMATOCRIT 42.3 % (36.0-47.0); HEMOGLOBIN 13.7 g/dl (12.0-15.5); LYMPH # 1.1 10^3/uL (1.5-5.0); LYMPH % 14.5 % (24.0-44.0); MEAN CORPUSCULAR HGB CONC 32.4 g/dl (32.0-36.5); MEAN CORPUSCULAR VOLUME 92.6 fl (80.0-96.0); MONO # 0.4 10^3/uL (0.0-0.8); NEUTROPHILS # 5.8 10^3/uL (1.5-8.5); PLATELET COUNT, AUTOMATED 200 10^3/uL (150-450); RED BLOOD COUNT 4.57 10^6/uL (4.00-5.40); WHITE BLOOD COUNT 7.3 10^3/uL (4.0-10.0)
== END ==
LOC: M LAB 09:27
PROVIDERS: ATTEND Physician Assistant
DX: N92.6 Irregular menstruation, unspecified (principal)

== ENCOUNTER → 2021-02-26 | Outpatient (CLI) | payer OTHER ==
--- NOTE | 2021-02-26 17:20 | REP ---
INDICATION: IRREGULAR MENSES. COMPARISON: None. TECHNIQUE: Transabdominal and transvaginal scanning performed. FINDINGS: Uterine dimensions are 8.1 x 4.5 x 6.1 cm. Endometrial echo is 4 mm in AP dimension and centrally placed. A vague hyperechoic area is seen in the fundal myometrium measuring 1.9 x 1.3 x 0.9 cm. Differential diagnosis would include fibroid versus adenomyoma. The bladder measures 7.0 x 5.7 x 7.7cm. The right ovary is not visualized due to bowel gas. The left ovary dimensions are 4.3 x 2.0 x 2.2 cm. Blood flow is seen in the left ovary with duplex Doppler evaluation, with no torsion There is no adnexal mass identified. There is moderate diffuse free fluid in the pelvis. IMPRESSION: Hyperechoic area in the fundal myometrium may represent a fibroid or adenomyoma 1.9 x 1.3 x 0.9 cm. Endometrial thickness 4 mm. Right ovary could not be visualized. Left ovary unremarkable. Moderate free fluid. <Electronically signed by Evaristo Logan > 02/26/21 1127
== END ==
LOC: M RAD 13:24
PROVIDERS: ATTEND Physician Assistant
DX: N92.6 Irregular menstruation, unspecified (principal)

== ENCOUNTER → 2021-04-18 | Outpatient (CLI) | payer OTHER ==
[~2021-04-18] MED LIST changes: +CETI10TA4 PO; +medical marijuana
== END ==
LOC: M LABSMTC 12:05
PROVIDERS: ATTEND Anesthesiology
DX: Z01.812 Encounter for preprocedural laboratory examination (principal)

== ENCOUNTER 2021-04-23 10:30 | Day surgery (SDC) | payer OTHER ==
[~2021-04-23] VITALS: Ht 170.2 cm; Wt 98.9 kg
[~2021-04-23 10:30] MED LIST changes: +BUPIVACAINE HCL 0.25% 30ML VIAL As Ordered ONE; +CLINDAMYCIN 900 MG in IV 1 EA IV ONE; +LIDOCAINE 1% MDV 20ML VIAL SQ PRN; +LR 1,000 ML IV ONE
[2021-04-23 11:48] LABS: HEMATOCRIT 41.4 % (36.0-47.0); HEMOGLOBIN 13.5 g/dl (12.0-15.5); MEAN CORPUSCULAR HEMOGLOBIN 29.7 pg (27.0-33.0); MEAN CORPUSCULAR HGB CONC 32.6 g/dl (32.0-36.5); MEAN CORPUSCULAR VOLUME 91.2 fl (80.0-96.0); PLATELET COUNT, AUTOMATED 178 10^3/uL (150-450); RED BLOOD COUNT 4.54 10^6/uL (4.00-5.40); WHITE BLOOD COUNT 8.6 10^3/uL (4.0-10.0)
--- NOTE | 2021-04-23 12:58 | ROOPDOC ---
[facility] Report Of Operation Report of Operation DATE OF PROCEDURE: 04/23/21 PREPROCEDURE DIAGNOSES: 1. [Abnormal uterine bleeding.][Fibroid uterus.] POSTPROCEDURE DIAGNOSES: 1. [Abnormal uterine bleeding.][Fibroid uterus.] PROCEDURES PERFORMED: 1. Robotic-assisted laparoscopic hysterectomy. 2. Bilateral salpingectomy. 3. Cystoscopy. SURGEON: Brandyn Delgado MD BLADE BENDER FURNACE TENDER: KENNETH Alvarenga ANESTHESIA: General endotracheal anesthesia. ESTIMATED BLOOD LOSS: [50] mL. INTRAVENOUS FLUIDS: [1000]mL lactated Ringer solution. URINE OUTPUT: [100]mL. PREPROCEDURE ANTIBIOTICS: [2g Ancef] OPERATIVE FINDINGS: [The patient with normal-appearing bilateral adnexa and uterus] CYSTOSCOPIC FINDING: Normal bladder mucosa, no foreign objects. Bilateral ureteral jets were observed. SPECIMEN: [Uterus, cervix, bilateral fallopian tubes] DESCRIPTION OF PROCEDURE: After informed consent was obtained and written consent was reviewed, the patient was brought to the operating room, where general endotracheal anesthesia was obtained. She was then placed in lithotomy position, was prepped and draped in a normal sterile fashion. A time-out in the operating room was then performed, identifying the patient, procedure to be performed, as well as drug allergies. A speculum was then placed, revealing the cervix. The anterior and posterior aspects of the cervix were stitched with a 0 Vicryl. The uterus was then sounded to [9]cm. A [large] VCare uterine manipulator was then advanced through the cervical os for means to manipulate the uterus. The cervical cap was applied over the cervix, as well as the vaginal sleeve applied into the vagina. The speculum was removed from the patients vagina. A Ybarra catheter was then placed and set to gravity. Gloves were changed, and attention was turned to the patients abdomen, where a Veress needle was placed through the umbilicus. A pneumoperitoneum was then obtained with CO2 gas. The supraumbilical area was infused with 0.25% Marcaine. An incision was made in this area, and a 8 mm trocar and sleeve was advanced through this incision. The laparoscope was then replaced, revealing intra-abdominal placement. Three additional port sites were placed, two to the left side of the patient's abdomen and one to the right. These areas was infused with 0.25% Marcaine. Each one of these areas, incisions were made, and 8 mm trocars and sleeves advanced through each one of these incisions under direct visualization. Next, the da Lupe was then docked, utilizing a camera arm and two operative arms. The patient's abdomen was then surveyed with the above-noted finding. Bilateral salpingectomies were then performed. The fallopian tubes' mesosalpinx was cauterized and ligated with hemostasis noted. Next, the uteroovarian ligaments bilateral were cauterized and ligated with good hemostasis noted. The round ligaments bilaterally were cauterized and ligated with good hemostasis noted. The anterior and posterior aspects of broad ligaments were . The anterior leaf of the broad ligament was cauterized and ligated and dissected along the bladder, creating a bladder flap. The remainder of the broad and cardinal ligaments were then cauterized and ligated with good hemostasis noted. The uterine arteries were skeletonized bilaterally and were cauterized and transected with good hemostasis noted. Anterior and posterior colpotomies were made using monopolar scissors. The uterus was then brought out through the vaginal incision. The surgical sites were inspected and noted to be hemostatic. The vaginal cuff was then closed using 2-0 V-Loc system in a running fashion. Gary was then applied over the surgical field. The pneumoperitoneum was then released. Next, the cystoscopy was then performed. Utilizing a 70-degree cystoscope, it was advanced transurethrally through the bladder. The bladder was surveyed, showing normal bladder mucosa, no foreign bodies. The bilateral ureteral jets were observed. The cystoscope was then removed. The bladder was then drained. Gloves were changed. Attention was then turned to the patients abdomen, where all four port sites were closed with 4-0 Monocryl and dressed with Dermabond. The patient was then taken out of lithotomy position and was awakened from general anesthesia and taken to recovery in stable condition. Counts were correct. Floresita Santamaria, my surgical nurse, played a central role in the operation. She assisted with port placement, tissue retraction and identification, as well as wound closure. BRANDYN DELGADO MD. Apr 23, 2021 12:58
[2021-04-23] MEDS ORDERED: SCOPOLAMINE 1MG TRANSDERMAL PATCH As Ordered ONE (13:17)
[2021-04-23] MEDS ORDERED: fentaNYL 250 MCG/5 ML INJECTION (J3010) As Ordered ONE (13:58)
[2021-04-23] MEDS ORDERED: MIDAZOLAM INJ 2MG/2ML VIAL (J2250 PER 1MG) As Ordered ONE (13:58)
[2021-04-23] MEDS ORDERED: METOCLOPRAMIDE INJ 10MG/2ML VIAL (J2765 PER 1) As Ordered ONE (13:58)
[2021-04-23] MEDS ORDERED: dexameTHASONE 4 MG/ML 1ML VIAL (J1100 PER 1MG) As Ordered ONE (13:58)
[2021-04-23] MEDS ORDERED: ROCURONIUM BROMIDE 50 MG/5 ML VIAL As Ordered ONE (13:58)
[2021-04-23] MEDS ORDERED: SUGAMMADEX SODIUM 500 MG/5 ML VIAL (BRIDION) As Ordered ONE (13:58)
[2021-04-23] MEDS ORDERED: LIDOCAINE 2% 100MG/5ML SDV (FOR ANES.) As Ordered ONE (13:58)
[2021-04-23] MEDS ORDERED: HYDROmorphone HCL 2 MG/ML 1ML VIAL As Ordered ONE (13:58)
[2021-04-23] MEDS ORDERED: ACETAMINOPHEN 1000MG 100ML IV BTL (OFIRMEV) (J0131 PER 10MG) As Ordered ONE (13:58)
[2021-04-23] MEDS ORDERED: ONDANSETRON 4MG/2ML VIAL As Ordered ONE (13:58)
[2021-04-23] MEDS ORDERED: propofoL 200 MG/20 ML VIAL As Ordered ONE (13:58)
[2021-04-23] MEDS ORDERED: KETOROLAC 60MG 2ML VIAL As Ordered ONE (13:58)
[2021-04-23] MEDS ORDERED: AZTREONAM 2 GM in D5W MINI-BAG PLUS 100 ML IV ONE (14:00)
[2021-04-23] MEDS ORDERED: oxyCODONE 5MG TAB PO PRN (15:30)
[2021-04-23] MEDS ORDERED: LR 1,000 ML IV SCH (15:30)
[2021-04-23] MEDS ORDERED: ONDANSETRON 4MG/2ML VIAL IV PRN (15:30)
[2021-04-23] MEDS ORDERED: PERCOCET 5MG/325MG TAB PO PRN (15:30)
[2021-04-23] MEDS: fentaNYL 100 MCG/2 ML INJECTION (J3010) IV PRN ×4 (15:48→16:09)
[2021-04-23 17:40] VITALS: BP 132/75
[2021-04-23] MEDS ORDERED: KETOROLAC 30 MG/ML 1ML VIAL IV SCH (21:00)
== END 2021-04-23 17:40 | disposition home or self-care (01) ==
LOC: M SDC 10:30
PROVIDERS: ATTEND Obstetrics & Gynecology
DX: N93.9 Abnormal uterine and vaginal bleeding, unspecified (principal); E04.9 Nontoxic goiter, unspecified; Z79.899 Other long term (current) drug therapy; K21.9 Gastro-esophageal reflux disease without esophagitis; F31.9 Bipolar disorder, unspecified; G43.909 Migraine, unspecified, not intractable, without status migrainosus; Z98.2 Presence of cerebrospinal fluid drainage device; Z88.8 Allergy status to other drugs, medicaments and biological substances; Z88.0 Allergy status to penicillin
CPT/HCPCS: 58571; 81025; 85027; 86850; 86900; 86901; 88307; J0131; J1100; J1170; J1885; J2250; J2405; J2765; J3010; S0073; S2900

== ENCOUNTER 2021-05-15 06:30 | Emergency (ER) | payer OTHER ==
[~2021-05-15] VITALS: Ht 175.3 cm; Wt 95.0 kg
[~2021-05-15 06:30] MED LIST changes: -BUPIVACAINE HCL 0.25% 30ML VIAL As Ordered ONE; -CLINDAMYCIN 900 MG in IV 1 EA IV ONE; -LIDOCAINE 1% MDV 20ML VIAL SQ PRN; -LR 1,000 ML IV ONE
[2021-05-15] MEDS ORDERED: METOCLOPRAMIDE INJ 10MG/2ML VIAL (J2765 PER 1) IV ONE (07:30)
[2021-05-15] MEDS ORDERED: NS 1,000 ML IV ONE (07:30)
[2021-05-15 09:20] LABS: RSV AMPLIFICATION NEGATIVE (NEGATIVE)
[2021-05-15 09:41] LABS: BASO % 0.3 % (0.0-1.0); HEMATOCRIT 42.2 % (36.0-47.0); HEMOGLOBIN 13.9 g/dl (12.0-15.5); LYMPH # 0.7 10^3/uL (1.5-5.0); LYMPH % 6.5 % (24.0-44.0); MEAN CORPUSCULAR HEMOGLOBIN 29.3 pg (27.0-33.0); MEAN CORPUSCULAR HGB CONC 32.9 g/dl (32.0-36.5); MEAN CORPUSCULAR VOLUME 88.8 fl (80.0-96.0); MONO # 0.4 10^3/uL (0.0-0.8); MONO % 4.2 % (2.0-8.0); NEUTROPHILS # 9.1 10^3/uL (1.5-8.5); NEUTROPHILS % 88.6 % (36.0-66.0); PLATELET COUNT, AUTOMATED 289 10^3/uL (150-450); RED BLOOD COUNT 4.75 10^6/uL (4.00-5.40); WHITE BLOOD COUNT 10.3 10^3/uL (4.0-10.0)
[2021-05-15 10:06] LABS: BLOOD UREA NITROGEN 9 MG/DL (7-18); CARBON DIOXIDE LEVEL 24 MEQ/L (21-32); CHLORIDE LEVEL 109 MEQ/L (98-107); CREATININE FOR GFR 0.73 MG/DL (0.55-1.30); GLOMERULAR FILTRATION RATE > 60.0 (>60); GLUCOSE, FASTING 103 MG/DL (70-100); POTASSIUM SERUM 3.1 MEQ/L (3.5-5.1); SODIUM LEVEL 143 MEQ/L (136-145)
[2021-05-15 10:07] LABS: ALBUMIN 4.3 GM/DL (3.2-5.2); ALT/SGPT 21 U/L (12-78); BILIRUBIN,DIRECT 0.1 MG/DL (0.0-0.2); BILIRUBIN,TOTAL 0.5 MG/DL (0.2-1.0); CALCIUM LEVEL 9.4 MG/DL (8.5-10.1); FREE T3 2.7 PG/ML (2.2-4.0); FREE T4 1.52 NG/DL (0.76-1.46); LIPASE 67 U/L (73-393); THYROID STIMULATING HORMONE 0.546 uIU/ML (0.358-3.740); TOTAL PROTEIN 8.1 GM/DL (6.4-8.2)
[2021-05-15] MEDS ORDERED: POTASSIUM CHLORIDE 10MEQ SR TABLET PO ONE (10:15)
[2021-05-15 10:47] LABS: APPEARANCE, URINE HAZY (CLEAR); BACTERIA, URINE AUTO NEGATIVE (NEGATIVE); BILIRUBIN, URINE AUTO NEGATIVE (NEGATIVE); BLOOD, URINE BLOOD 3+ (NEGATIVE); COLOR, URINE YELLOW (YELLOW); GLUCOSE, URINE (UA) AUTO NEGATIVE (NEGATIVE); KETONE, URINE AUTO 2+ mg/dL (NEGATIVE); LEUKOCYTE ESTERASE, URINE AUTO NEGATIVE (NEGATIVE); MUCUS, URINE LARGE (NEGATIVE); NITRITE, URINE AUTO NEGATIVE (NEGATIVE); PROTEIN, URINE AUTO 2+ mg/dL (NEGATIVE); RBC, URINE AUTO 29 /HPF (0-3); SQUAMOUS EPITHELIAL CELL UR AU 6 /HPF (0-6); UROBILINOGEN, URINE AUTO 0.2 mg/dL (0.0-2.0); WBC, URINE AUTO 4 /HPF (0-3)
[2021-05-15] MEDS ORDERED: ZOFR4TAB16 PO (12:07)
[2021-05-15 12:16] VITALS: BP 116/66
== END 2021-05-15 12:26 | disposition home or self-care (01) ==
LOC: M ED 06:30
DX: E86.0 Dehydration (principal); I45.19 Other right bundle-branch block; E11.9 Type 2 diabetes mellitus without complications; G93.2 Benign intracranial hypertension; E04.1 Nontoxic single thyroid nodule; E66.9 Obesity, unspecified; Z98.2 Presence of cerebrospinal fluid drainage device; Z79.899 Other long term (current) drug therapy; Z88.0 Allergy status to penicillin; Z88.8 Allergy status to other drugs, medicaments and biological substances
CPT/HCPCS: 75809; 76705; 80048; 81001; 82248; 83690; 84439; 84443; 84481; 85025; 87631; 93005; 96361; 96374; 99284; J2765

== ENCOUNTER → 2021-05-18 | Outpatient (CLI) | payer OTHER ==
[~2021-05-18] MED LIST changes: +ZOFR4TAB16 PO
== END ==
LOC: M RAD 07:16
PROVIDERS: ATTEND Physician Assistant
DX: E05.20 Thyrotoxicosis with toxic multinodular goiter without thyrotoxic crisis or storm (principal)

== ENCOUNTER → 2021-06-12 | Outpatient (CLI) | payer OTHER | LOC: M LAB 08:46 | PROVIDERS: ATTEND Nurse Practitioner Family | DX: R63.4 Abnormal weight loss (principal) ==

== ENCOUNTER 2021-06-19 05:18 | Emergency (ER) | payer OTHER ==
[~2021-06-19] VITALS: Ht 170.2 cm; Wt 91.8 kg
[2021-06-19] MEDS ORDERED: PROMETHAZINE INJ 25 MG/ML VIAL (J2550) IV ONE (06:55)
[2021-06-19] MEDS ORDERED: NS 1,000 ML IV ONE (06:55)
[2021-06-19] MEDS ORDERED: MORPHINE 4 MG/ML 1ML VIAL/SYRINGE (J2270) IV ONE (06:55)
[2021-06-19 09:03] LABS: ALT/SGPT 18 U/L (12-78); BILIRUBIN,TOTAL 0.6 MG/DL (0.2-1.0); BLOOD UREA NITROGEN 10 MG/DL (7-18); CALCIUM LEVEL 9.4 MG/DL (8.5-10.1); CARBON DIOXIDE LEVEL 21 MEQ/L (21-32); CHLORIDE LEVEL 110 MEQ/L (98-107); GLOMERULAR FILTRATION RATE > 60.0 (>60); GLUCOSE, FASTING 84 MG/DL (70-100); LIPASE 80 U/L (73-393); POTASSIUM SERUM 4.1 MEQ/L (3.5-5.1); SODIUM LEVEL 141 MEQ/L (136-145); TOTAL PROTEIN 7.8 GM/DL (6.4-8.2)
[2021-06-19] MEDS ORDERED: ISOVUE-370 76% 100ML VIAL As Ordered ONE (09:15)
[2021-06-19 10:43] LABS: BASO % 0.5 % (0.0-1.0); EOS % 0.3 % (0.0-3.0); HEMATOCRIT 43.8 % (36.0-47.0); HEMOGLOBIN 14.2 g/dl (12.0-15.5); LYMPH # 0.9 10^3/uL (1.5-5.0); LYMPH % 11.9 % (24.0-44.0); MEAN CORPUSCULAR HEMOGLOBIN 29.7 pg (27.0-33.0); MEAN CORPUSCULAR HGB CONC 32.4 g/dl (32.0-36.5); MEAN CORPUSCULAR VOLUME 91.6 fl (80.0-96.0); MONO # 0.5 10^3/uL (0.0-0.8); MONO % 6.7 % (2.0-8.0); NEUTROPHILS # 6.2 10^3/uL (1.5-8.5); NEUTROPHILS % 80.3 % (36.0-66.0); PLATELET COUNT, AUTOMATED 273 10^3/uL (150-450); RED BLOOD COUNT 4.78 10^6/uL (4.00-5.40); WHITE BLOOD COUNT 7.7 10^3/uL (4.0-10.0)
[2021-06-19] MEDS ORDERED: DICY10CA13 PO (11:23)
[2021-06-19] MEDS ORDERED: PROM25TA12 PO (11:23)
[2021-06-19 11:35] VITALS: BP 130/78
== END 2021-06-19 11:37 | disposition home or self-care (01) ==
LOC: M ED 05:18
DX: R10.9 Unspecified abdominal pain (principal); R11.2 Nausea with vomiting, unspecified; R19.7 Diarrhea, unspecified; G93.2 Benign intracranial hypertension; F12.20 Cannabis dependence, uncomplicated; Z79.899 Other long term (current) drug therapy; Z88.0 Allergy status to penicillin; Z88.8 Allergy status to other drugs, medicaments and biological substances
CPT/HCPCS: 74177; 76705; 80053; 81001; 83690; 85025; 87086; 87505; 96361; 96374; 96375; 99284; J2270; Q9967

== ENCOUNTER → 2021-08-16 | Outpatient (CLI) | payer OTHER ==
[~2021-08-16] MED LIST changes: +DICY10CA13 PO; +PROM25TA12 PO; +PROP60CA PO
== END ==
LOC: M LABSMTC 09:57
PROVIDERS: ATTEND Anesthesiology
DX: Z01.812 Encounter for preprocedural laboratory examination (principal); Z20.822 Contact with and (suspected) exposure to COVID-19

== ENCOUNTER 2021-08-21 08:56 | Day surgery (SDC) | payer OTHER ==
[~2021-08-21] VITALS: Ht 170.2 cm; Wt 94.8 kg
[~2021-08-21 08:56] MED LIST changes: +LIDOCAINE 1% MDV 20ML VIAL SQ PRN; +LR 1,000 ML IV ONE
[2021-08-21] MEDS ORDERED: UBRO100T PO (09:43)
[2021-08-21] MEDS ORDERED: MIDAZOLAM INJ 2MG/2ML VIAL (J2250 PER 1MG) As Ordered ONE (10:58)
[2021-08-21] MEDS ORDERED: BUPIVACAINE/EPIN 0.25% 30 ML VIAL As Ordered ONE (10:59)
[2021-08-21] MEDS ORDERED: fentaNYL 100 MCG/2 ML INJECTION As Ordered ONE ×2 (10:59→11:26)
[2021-08-21] MEDS ORDERED: LevoFLOXacin IV 500 MG in IV 1 EA IV ONE (11:00)
[2021-08-21] MEDS ORDERED: LIDOCAINE 2% 100MG/5ML SDV (FOR ANES.) As Ordered ONE ×2 (11:24→11:51)
[2021-08-21] MEDS ORDERED: propofoL 200 MG/20 ML VIAL As Ordered ONE ×2 (11:24→11:50)
[2021-08-21] MEDS ORDERED: ROCURONIUM BROMIDE 50 MG/5 ML VIAL As Ordered ONE (11:24)
[2021-08-21] MEDS ORDERED: ONDANSETRON 4MG/2ML VIAL As Ordered ONE (11:25)
[2021-08-21] MEDS ORDERED: dexameTHASONE 4 MG/ML 1ML VIAL (J1100 PER 1MG) As Ordered ONE (11:25)
[2021-08-21] MEDS ORDERED: KETOROLAC 60MG 2ML VIAL As Ordered ONE (11:25)
[2021-08-21] MEDS ORDERED: ACETAMINOPHEN 1000MG 100ML IV BTL (OFIRMEV) (J0131 PER 10MG) As Ordered ONE (11:28)
[2021-08-21] MEDS ORDERED: SUGAMMADEX SODIUM 500 MG/5 ML VIAL (BRIDION) As Ordered ONE (11:36)
[2021-08-21] MEDS ORDERED: NS 1,000 ML IV SCH (12:20)
[2021-08-21] MEDS ORDERED: PERCOCET 5MG/325MG TAB PO PRN ×2 (12:20)
[2021-08-21] MEDS ORDERED: ONDANSETRON 4MG/2ML VIAL IV PRN (12:35)
[2021-08-21] MEDS ORDERED: LR 1,000 ML IV SCH (12:35)
[2021-08-21] MEDS: oxyCODONE 5MG TAB PO PRN ×2 (12:40→13:13)
[2021-08-21] MEDS: fentaNYL 100 MCG/2 ML INJECTION IV PRN ×2 (12:45→12:52)
[2021-08-21 14:10] VITALS: BP 129/73
== END 2021-08-21 14:16 | disposition home or self-care (01) ==
LOC: M SDC 08:56
PROVIDERS: ATTEND Surgery
DX: K82.4 Cholesterolosis of gallbladder (principal); F32.A Depression, unspecified; F41.9 Anxiety disorder, unspecified; E07.9 Disorder of thyroid, unspecified; K21.9 Gastro-esophageal reflux disease without esophagitis; M54.2 Cervicalgia; L30.9 Dermatitis, unspecified; G43.909 Migraine, unspecified, not intractable, without status migrainosus; G93.2 Benign intracranial hypertension; Z86.32 Personal history of gestational diabetes; Z79.899 Other long term (current) drug therapy; Z88.0 Allergy status to penicillin; Z88.8 Allergy status to other drugs, medicaments and biological substances
CPT/HCPCS: 47562; 88304; J0131; J1100; J1885; J2250; J2405; J3010

== ENCOUNTER → 2021-09-11 | Outpatient (CLI) | payer OTHER ==
[~2021-09-11] MED LIST changes: -LIDOCAINE 1% MDV 20ML VIAL SQ PRN; -LR 1,000 ML IV ONE; +UBRO100T PO
== END ==
LOC: M RAD 12:42
PROVIDERS: ATTEND Neurological Surgery
DX: G93.2 Benign intracranial hypertension (principal); Z98.2 Presence of cerebrospinal fluid drainage device

== ENCOUNTER → 2021-11-02 | Outpatient (CLI) | payer OTHER ==
[2021-11-02 10:57] LABS: BASO % 0.6 % (0.0-1.0); EOS # 0.1 10^3/uL (0.0-0.5); EOS % 1.2 % (0.0-3.0); HEMATOCRIT 41.7 % (36.0-47.0); HEMOGLOBIN 13.6 g/dl (12.0-15.5); LYMPH # 1.2 10^3/uL (1.5-5.0); LYMPH % 16.8 % (24.0-44.0); MEAN CORPUSCULAR HEMOGLOBIN 29.8 pg (27.0-33.0); MEAN CORPUSCULAR HGB CONC 32.6 g/dl (32.0-36.5); MEAN CORPUSCULAR VOLUME 91.2 fl (80.0-96.0); MONO # 0.4 10^3/uL (0.0-0.8); MONO % 6.1 % (2.0-8.0); NEUTROPHILS # 5.1 10^3/uL (1.5-8.5); PLATELET COUNT, AUTOMATED 248 10^3/uL (150-450); RED BLOOD COUNT 4.57 10^6/uL (4.00-5.40); WHITE BLOOD COUNT 6.8 10^3/uL (4.0-10.0)
[2021-11-02 11:47] LABS: ALBUMIN 3.9 GM/DL (3.2-5.2); ALT/SGPT 24 U/L (12-78); BILIRUBIN,TOTAL 0.8 MG/DL (0.2-1.0); BLOOD UREA NITROGEN 8 MG/DL (7-18); CALCIUM LEVEL 9.7 MG/DL (8.5-10.1); CARBON DIOXIDE LEVEL 26 MEQ/L (21-32); CHLORIDE LEVEL 109 MEQ/L (98-107); CREATININE FOR GFR 0.71 MG/DL (0.55-1.30); FREE T4 1.06 NG/DL (0.76-1.46); GLOMERULAR FILTRATION RATE > 60.0 (>60); GLUCOSE, FASTING 88 MG/DL (70-100); SODIUM LEVEL 140 MEQ/L (136-145); TOTAL 25(OH) VITAMIN D 21.2 NG/ML (30.0-100.0); TOTAL PROTEIN 6.8 GM/DL (6.4-8.2)
== END ==
LOC: M LAB 10:25
PROVIDERS: ATTEND Physician Assistant
DX: Z13.29 Encounter for screening for other suspected endocrine disorder (principal)

== ENCOUNTER → 2022-03-07 | Outpatient (CLI) | payer OTHER ==
[2022-03-07 16:10] LABS: FREE T4 0.87 NG/DL (0.76-1.46); THYROID STIMULATING HORMONE 1.34 uIU/ML (0.358-3.740)
== END ==
LOC: M LAB 13:56
PROVIDERS: ATTEND Internal Medicine Gastroenterology
DX: R19.4 Change in bowel habit (principal)

== ENCOUNTER → 2022-03-19 | Outpatient (REF) | payer OTHER ==
[~2022-03-19] MED LIST changes: +AMIT10TA7 PO; +VENL75CA47 PO
== END ==
LOC: M LAB REF 14:15
PROVIDERS: ATTEND Internal Medicine Gastroenterology
DX: R19.4 Change in bowel habit (principal)

== ENCOUNTER → 2022-03-27 | Outpatient (CLI) | payer OTHER | LOC: M LABSMTC 11:06 | PROVIDERS: ATTEND Anesthesiology | DX: Z01.812 Encounter for preprocedural laboratory examination (principal); Z20.822 Contact with and (suspected) exposure to COVID-19 ==

== ENCOUNTER 2022-04-01 11:26 | Day surgery (SDC) | payer OTHER ==
[~2022-04-01] VITALS: Ht 170.2 cm; Wt 95.2 kg
[~2022-04-01 11:26] MED LIST changes: +NS 1,000 ML IV ONE
[2022-04-01] MEDS ORDERED: LIDOCAINE 2% 100MG/5ML SDV (FOR ANES.) As Ordered ONE (12:47)
[2022-04-01] MEDS ORDERED: propofoL 200 MG/20 ML VIAL As Ordered ONE ×4 (12:47→13:13)
[2022-04-01] MEDS ORDERED: MIDAZOLAM INJ 2MG/2ML VIAL (J2250 PER 1MG) As Ordered ONE (12:47)
[2022-04-01] MEDS ORDERED: PHENYLephrine 500MCG 5ML (100MCG/ML) SYRINGE As Ordered ONE (13:11)
[2022-04-01 13:56] VITALS: BP 118/68
== END 2022-04-01 13:58 | disposition home or self-care (01) ==
LOC: M OPP 11:26
PROVIDERS: ATTEND Internal Medicine Gastroenterology
DX: K58.0 Irritable bowel syndrome with diarrhea (principal); K64.8 Other hemorrhoids; K44.9 Diaphragmatic hernia without obstruction or gangrene; I10 Essential (primary) hypertension; E04.1 Nontoxic single thyroid nodule; K21.9 Gastro-esophageal reflux disease without esophagitis; L30.9 Dermatitis, unspecified; F41.9 Anxiety disorder, unspecified; F31.9 Bipolar disorder, unspecified; G43.909 Migraine, unspecified, not intractable, without status migrainosus; Z88.0 Allergy status to penicillin; Z88.1 Allergy status to other antibiotic agents; Z88.8 Allergy status to other drugs, medicaments and biological substances; Z79.899 Other long term (current) drug therapy; Z80.49 Family history of malignant neoplasm of other genital organs; Z80.8 Family history of malignant neoplasm of other organs or systems
CPT/HCPCS: 43235; 45380; 88305; J2250; J2370

== ENCOUNTER → 2022-06-05 | Outpatient (CLI) | payer OTHER ==
[~2022-06-05] MED LIST changes: +ACET-897 PO; +CEPH500C PO; +DITR5TAB PO; +HYDR-4571 PO; +IBUP200T46 PO; -NS 1,000 ML IV ONE; +PYRI1TAB5 PO; +TAMS1CAP17 PO
[2022-06-05 14:12] LABS: BASO # 0.1 10^3/uL (0.0-0.2); BASO % 1.1 % (0.0-1.0); EOS # 0.2 10^3/uL (0.0-0.5); EOS % 3.4 % (0.0-3.0); HEMATOCRIT 41.8 % (36.0-47.0); HEMOGLOBIN 13.5 g/dl (12.0-15.5); LYMPH # 1.4 10^3/uL (1.5-5.0); LYMPH % 23.4 % (24.0-44.0); MEAN CORPUSCULAR HEMOGLOBIN 29.3 pg (27.0-33.0); MEAN CORPUSCULAR HGB CONC 32.3 g/dl (32.0-36.5); MEAN CORPUSCULAR VOLUME 90.7 fl (80.0-96.0); MONO # 0.4 10^3/uL (0.0-0.8); MONO % 6.2 % (2.0-8.0); NEUTROPHILS # 4.1 10^3/uL (1.5-8.5); NEUTROPHILS % 65.9 % (36.0-66.0); PLATELET COUNT, AUTOMATED 256 10^3/uL (150-450); RED BLOOD COUNT 4.61 10^6/uL (4.00-5.40); WHITE BLOOD COUNT 6.2 10^3/uL (4.0-10.0)
[2022-06-05 14:38] LABS: ALBUMIN 4.2 G/DL (3.2-5.2); ALKALINE PHOSPHATASE 78 U/L (46-116); ALT/SGPT 18 U/L (7.0-40); AST/SGOT 17 U/L (<34); BILIRUBIN,TOTAL 0.3 MG/DL (0.3-1.2); BLOOD UREA NITROGEN 9 MG/DL (9-23); CALCIUM LEVEL 9.9 MG/DL (8.5-10.1); CARBON DIOXIDE LEVEL 28 MMOL/L (20-31); CHLORIDE LEVEL 107 MMOL/L (98-107); CREATININE FOR GFR 0.69 MG/DL (0.55-1.30); GLOMERULAR FILTRATION RATE > 60.0 (>60); GLUCOSE, FASTING 82 MG/DL (60-100); POTASSIUM SERUM 4.3 MMOL/L (3.5-5.1); SODIUM LEVEL 140 MMOL/L (136-145); TOTAL PROTEIN 7.3 G/DL (5.7-8.2)
[2022-06-05 14:41] LABS: FREE T4 1.29 NG/DL (0.89-1.76)
[2022-06-05 14:42] LABS: THYROID STIMULATING HORMONE 0.846 uIU/ML (0.55-4.78); TOTAL 25(OH) VITAMIN D 16.9 NG/ML (20.0-100.0)
== END ==
LOC: M RAD 13:00
PROVIDERS: ATTEND Physician Assistant
DX: E04.1 Nontoxic single thyroid nodule (principal); E05.20 Thyrotoxicosis with toxic multinodular goiter without thyrotoxic crisis or storm; E55.9 Vitamin D deficiency, unspecified

== ENCOUNTER → 2022-06-15 | Outpatient (CLI) | payer OTHER ==
[2022-06-15 11:28] LABS: APPEARANCE, URINE MANUAL CLEAR (CLEAR); COLOR, URINE MANUAL YELLOW (YELLOW)
[2022-06-15 11:29] LABS: BILIRUBIN, URINE MANUAL NEGATIVE (NEGATIVE); BLOOD URINE MANUAL POSITIVE (NEGATIVE); GLUCOSE, URINE (UA) MANUAL NEGATIVE (NEGATIVE); KETONE, URINE MANUAL NEGATIVE (NEGATIVE); LEUKOCYTE ESTERASE, URINE MAN POSITIVE (NEGATIVE); NITRITE, URINE MANUAL NEGATIVE (NEGATIVE); PROTEIN, URINE MANUAL NEGATIVE (NEGATIVE); UROBILINOGEN, URINE MANUAL NORMAL (NORMAL)
[2022-06-15 11:34] LABS: HEMATOCRIT 42.2 % (36.0-47.0); HEMOGLOBIN 13.9 g/dl (12.0-15.5); MEAN CORPUSCULAR HGB CONC 32.9 g/dl (32.0-36.5); MEAN CORPUSCULAR VOLUME 91.1 fl (80.0-96.0); PLATELET COUNT, AUTOMATED 267 10^3/uL (150-450); RED BLOOD COUNT 4.63 10^6/uL (4.00-5.40); WHITE BLOOD COUNT 7.6 10^3/uL (4.0-10.0)
[2022-06-15 11:37] LABS: SQUAMOUS EPITHELIAL CELL URINE LARGE AMOUNT /hpf (SMALL AMT)
[2022-06-15 11:38] LABS: BACTERIA, URINE MOD AMOUNT; HYALINE CAST, URINE NONE SEEN /lpf (0-1); MUCUS, URINE SMALL AMOUNT (NEGATIVE)
[2022-06-15 11:39] LABS: WBC, URINE 15-20 /hpf (0-3)
[2022-06-15 11:40] LABS: RBC, URINE 15-20 /hpf (0-3)
[2022-06-15 11:46] LABS: INR 0.92; PROTHROMBIN TIME 12.6 SECONDS (12.5-14.5)
[2022-06-15 11:47] LABS: PARTIAL THROMBOPLASTIN TIME 27.2 SECONDS (24.8-34.2)
[2022-06-15 12:04] LABS: BLOOD UREA NITROGEN 8 MG/DL (9-23); CALCIUM LEVEL 9.1 MG/DL (8.5-10.1); CARBON DIOXIDE LEVEL 26 MMOL/L (20-31); CHLORIDE LEVEL 107 MMOL/L (98-107); CREATININE FOR GFR 0.69 MG/DL (0.55-1.30); GLOMERULAR FILTRATION RATE > 60.0 (>60); GLUCOSE, FASTING 95 MG/DL (60-100); POTASSIUM SERUM 4.5 MMOL/L (3.5-5.1); SODIUM LEVEL 138 MMOL/L (136-145)
[2022-06-15 12:11] LABS: HCG, SERUM QUALITATIVE NEGATIVE (NEGATIVE)
== END ==
LOC: M LAB 10:58
PROVIDERS: ATTEND Nurse Practitioner Women's Health
DX: Z01.818 Encounter for other preprocedural examination (principal); N13.2 Hydronephrosis with renal and ureteral calculous obstruction

== ENCOUNTER → 2022-06-16 | Outpatient (CLI) | payer OTHER | LOC: M LABSMTC 11:09 | PROVIDERS: ATTEND Anesthesiology | DX: Z01.818 Encounter for other preprocedural examination (principal); Z11.52 Encounter for screening for COVID-19 ==

== ENCOUNTER 2022-06-20 07:37 | Day surgery (SDC) | payer OTHER ==
[~2022-06-20] VITALS: Ht 167.6 cm; Wt 96.2 kg
[~2022-06-20 07:37] MED LIST changes: +CIPROFLOXACIN 400 MG in IV 1 EA IV ONE
[2022-06-20] MEDS ORDERED: propofoL 200 MG/20 ML VIAL As Ordered ONE ×2 (08:28→09:59)
[2022-06-20] MEDS ORDERED: MIDAZOLAM INJ 2MG/2ML VIAL As Ordered ONE (08:28)
[2022-06-20] MEDS ORDERED: ROCURONIUM BROMIDE 50MG/5ML VIAL As Ordered ONE (08:28)
[2022-06-20] MEDS ORDERED: fentaNYL 100 MCG/2 ML INJECTION As Ordered ONE (08:28)
[2022-06-20] MEDS ORDERED: LIDOCAINE 2% 100MG/5ML SDV (FOR ANES.) As Ordered ONE (08:28)
[2022-06-20] MEDS ORDERED: ONDANSETRON 4MG 2ML VIAL As Ordered ONE (08:28)
[2022-06-20] MEDS ORDERED: ISOVUE-300 61% 100ML VIAL As Ordered ONE (08:30)
[2022-06-20] MEDS ORDERED: LR 1,000 ML IV SCH ×2 (08:30→09:50)
[2022-06-20] MEDS ORDERED: fentaNYL 100 MCG/2 ML INJECTION IV PRN (09:50)
[2022-06-20] MEDS ORDERED: oxyCODONE 5MG TAB PO PRN (09:50)
[2022-06-20] MEDS ORDERED: HYDROMORPHONE HCL 0.5 MG/ 0.5 ML SYRINGE IV PRN (09:50)
[2022-06-20] MEDS ORDERED: ONDANSETRON 4MG 2ML VIAL IV PRN (09:50)
[2022-06-20] MEDS ORDERED: MACR100C43 PO (09:51)
[2022-06-20 11:17] VITALS: BP 119/65
== END 2022-06-20 12:02 | disposition home or self-care (01) ==
LOC: M SDC 07:37
PROVIDERS: ATTEND Urology
DX: N20.1 Calculus of ureter (principal); I10 Essential (primary) hypertension; K21.9 Gastro-esophageal reflux disease without esophagitis; F41.9 Anxiety disorder, unspecified; F31.9 Bipolar disorder, unspecified; G93.2 Benign intracranial hypertension; Z98.2 Presence of cerebrospinal fluid drainage device; Z88.0 Allergy status to penicillin; Z88.8 Allergy status to other drugs, medicaments and biological substances; Z79.899 Other long term (current) drug therapy
CPT/HCPCS: 52310; 52351; 74420; C1769; J0744; J1100; J2250; J2405; J3010

== ENCOUNTER → 2022-10-04 | Outpatient (CLI) | payer OTHER ==
[~2022-10-04] MED LIST changes: -CIPROFLOXACIN 400 MG in IV 1 EA IV ONE; +MACR100C43 PO
== END ==
LOC: M RAD 10:15
PROVIDERS: ATTEND Physician Assistant
DX: G56.02 Carpal tunnel syndrome, left upper limb (principal)

== ENCOUNTER → 2022-11-15 | Outpatient (CLI) | payer OTHER ==
[~2022-11-15] MED LIST changes: +ACET1TAB55 PO; +DICY-61 PO; -DICY10CA13 PO; +ERGO500029 PO; +OXYC-517 PO; +PERC5TAB12 PO
== END ==
LOC: M CARPUL 10:13
PROVIDERS: ATTEND Family Medicine
DX: I36.1 Nonrheumatic tricuspid (valve) insufficiency (principal); Z82.49 Family history of ischemic heart disease and other diseases of the circulatory system; J90 Pleural effusion, not elsewhere classified

== ENCOUNTER 2022-11-27 13:47 | Observation (INO) | payer OTHER ==
[~2022-11-27] VITALS: Ht 170.2 cm; Wt 101.6 kg
[~2022-11-27 13:47] MED LIST changes: -PERC5TAB12 PO
[2022-11-27] MEDS ORDERED: SCOPOLAMINE 1MG TRANSDERMAL PATCH TOP ONE (15:50)
[2022-11-27] MEDS ORDERED: ONDANSETRON 4MG 2ML VIAL As Ordered ONE (18:42)
[2022-11-27] MEDS ORDERED: propofoL 200 MG/20 ML VIAL As Ordered ONE ×3 (18:42→18:58)
[2022-11-27] MEDS ORDERED: fentaNYL 100 MCG/2 ML INJECTION As Ordered ONE ×2 (18:42→18:53)
[2022-11-27] MEDS ORDERED: MIDAZOLAM INJ 2MG/2ML VIAL As Ordered ONE (18:42)
[2022-11-27] MEDS ORDERED: LIDOCAINE 2% 100MG/5ML SDV (FOR ANES.) As Ordered ONE (18:42)
[2022-11-27] MEDS ORDERED: ACETAMINOPHEN 1000MG 100ML IV BAG As Ordered ONE (18:46)
[2022-11-27] MEDS ORDERED: HYDROmorphone HCL 2MG/ML 1ML VIAL As Ordered ONE (19:06)
[2022-11-27] MEDS ORDERED: KETOROLAC 60MG 2ML VIAL As Ordered ONE (19:08)
[2022-11-27] MEDS ORDERED: POLYSPORIN TOPICAL OINTMENT 15GM As Ordered ONE (20:47)
[2022-11-27] MEDS ORDERED: ONDANSETRON 4MG 2ML VIAL IV PRN (20:55)
[2022-11-27] MEDS ORDERED: LR 1,000 ML IV SCH (20:55)
[2022-11-27] MEDS ORDERED: fentaNYL 100 MCG/2 ML INJECTION IV PRN (20:55)
[2022-11-27] MEDS ORDERED: PERC5TAB12 PO (21:15)
[2022-11-27] MEDS: oxyCODONE 5MG TAB PO PRN ×2 (21:48→22:20)
[2022-11-27] MEDS: HYDROMORPHONE HCL 0.5 MG/ 0.5 ML SYRINGE IV PRN ×4 (21:49→22:45)
[2022-11-27] MEDS ORDERED: HYDROMORPHONE HCL 0.5 MG/ 0.5 ML SYRINGE IV PRN ×2 (22:50→22:55)
[2022-11-27 23:17] VITALS: BP 131/71; TEMP 99.4; O2SAT 95
[2022-11-27] MEDS: KETOROLAC 30 MG/ML 1ML VIAL IV SCH ×2 (23:28→23:37)
[2022-11-27 23:58] VITALS: BP 121/82; TEMP 99.6; O2SAT 96
[2022-11-28 01:17] VITALS: BP 119/71; TEMP 99.5; O2SAT 96
[2022-11-28 02:00] VITALS: BP 115/68; TEMP 99.3; O2SAT 95
[2022-11-28 03:00] VITALS: BP 110/70; TEMP 99.5; O2SAT 96
[2022-11-28] MEDS: PERCOCET 5MG/325MG TAB PO PRN ×3 (04:02→12:36)
[2022-11-28 05:40] VITALS: BP 101/70; TEMP 99.9; O2SAT 95
[2022-11-28] MEDS: MORPHINE 4 MG/ML 1ML VIAL IV PRN ×2 (09:29→14:09)
[2022-11-28 14:00] VITALS: BP 117/66; TEMP 98; O2SAT 99
== END 2022-11-28 16:25 | disposition home or self-care (01) ==
LOC: M SDC 13:47 → M MS5PR 23:28
PROVIDERS: ADMIT Orthopaedic Surgery Hand Surgery; ATTEND Orthopaedic Surgery Hand Surgery
DX: S82.851A Displaced trimalleolar fracture of right lower leg, initial encounter for closed fracture (principal); X58.XXXA Exposure to other specified factors, initial encounter; Y92.89 Other specified places as the place of occurrence of the external cause; I10 Essential (primary) hypertension; E04.1 Nontoxic single thyroid nodule; K21.9 Gastro-esophageal reflux disease without esophagitis; G93.2 Benign intracranial hypertension; M54.2 Cervicalgia; F41.9 Anxiety disorder, unspecified; G43.909 Migraine, unspecified, not intractable, without status migrainosus; Z88.0 Allergy status to penicillin; Z88.8 Allergy status to other drugs, medicaments and biological substances; Z79.899 Other long term (current) drug therapy; Z79.891 Long term (current) use of opiate analgesic
CPT/HCPCS: 27814; 76000; 96374; 96376; C1713; J0131; J0665; J1100; J1170; J1885; J2250; J2405; J3010

== ENCOUNTER → 2022-12-09 | Outpatient (CLI) | payer OTHER ==
[~2022-12-09] MED LIST changes: +PERC5TAB12 PO
== END ==
LOC: M SOG 07:55
PROVIDERS: ATTEND Physician Assistant
DX: S82.851A Displaced trimalleolar fracture of right lower leg, initial encounter for closed fracture (principal); X58.XXXA Exposure to other specified factors, initial encounter; Y92.9 Unspecified place or not applicable; Y93.9 Activity, unspecified; Y99.9 Unspecified external cause status

== ENCOUNTER → 2023-01-09 | Outpatient (CLI) | payer OTHER | LOC: M SOG 09:01 | PROVIDERS: ATTEND Physician Assistant | DX: S82.851D Displaced trimalleolar fracture of right lower leg, subsequent encounter for closed fracture with routine healing (principal) ==

== ENCOUNTER → 2023-02-11 | Outpatient (CLI) | payer OTHER | LOC: M SOG 08:03 | PROVIDERS: ATTEND Physician Assistant | DX: S82.851D Displaced trimalleolar fracture of right lower leg, subsequent encounter for closed fracture with routine healing (principal) ==

== ENCOUNTER → 2023-03-25 | Outpatient (CLI) | payer OTHER | LOC: M SOG 07:56 | PROVIDERS: ATTEND Physician Assistant | DX: S82.851D Displaced trimalleolar fracture of right lower leg, subsequent encounter for closed fracture with routine healing (principal); Z98.890 Other specified postprocedural states ==

== ENCOUNTER → 2023-06-19 | Outpatient (CLI) | payer OTHER ==
[2023-06-19 11:56] LABS: BASO # 0.1 10^3/uL (0.0-0.2); BASO % 0.7 % (0.0-1.0); EOS # 0.1 10^3/uL (0.0-0.5); EOS % 1.7 % (0.0-3.0); HEMATOCRIT 41.8 % (36.0-47.0); HEMOGLOBIN 13.7 g/dl (12.0-15.5); LYMPH # 1.2 10^3/uL (1.5-5.0); LYMPH % 16.8 % (24.0-44.0); MEAN CORPUSCULAR HGB CONC 32.8 g/dl (32.0-36.5); MEAN CORPUSCULAR VOLUME 91.7 fl (80.0-96.0); MONO # 0.4 10^3/uL (0.0-0.8); MONO % 5.3 % (2.0-8.0); NEUTROPHILS # 5.4 10^3/uL (1.5-8.5); NEUTROPHILS % 75.2 % (36.0-66.0); PLATELET COUNT, AUTOMATED 253 10^3/uL (150-450); RED BLOOD COUNT 4.56 10^6/uL (4.00-5.40); WHITE BLOOD COUNT 7.2 10^3/uL (4.0-10.0)
[2023-06-19 12:03] LABS: ERYTHROCYTE SEDIMENTATION RATE 17 mm/hr (0-20)
[2023-06-19 12:19] LABS: HEMOGLOBIN A1c 5.2 % (4.0-6.0)
[2023-06-19 12:29] LABS: ALBUMIN 3.9 G/DL (3.2-5.2); ALKALINE PHOSPHATASE 94 U/L (46-116); ALT/SGPT 21 U/L (7.0-40); AST/SGOT 11 U/L (<34); BILIRUBIN,TOTAL 0.2 MG/DL (0.3-1.2); BLOOD UREA NITROGEN 8 MG/DL (9-23); CALCIUM LEVEL 9.2 MG/DL (8.5-10.1); CARBON DIOXIDE LEVEL 30 MMOL/L (20-31); CHLORIDE LEVEL 106 MMOL/L (98-107); CREATININE FOR GFR 0.75 MG/DL (0.55-1.30); GLOMERULAR FILTRATION RATE > 60.0 (>60); GLUCOSE, FASTING 98 MG/DL (60-100); SODIUM LEVEL 141 MMOL/L (136-145); TOTAL PROTEIN 6.8 G/DL (5.7-8.2)
[2023-06-19 12:33] LABS: FOLLICLE STIMULATING HORMONE 7.2 mIU/ML; TOTAL 25(OH) VITAMIN D 13.6 NG/ML (20.0-100.0)
[2023-06-19 12:34] LABS: FREE T4 0.95 NG/DL (0.89-1.76); LUTEINIZING HORMONE 14.5 mIU/ML
[2023-06-19 13:20] LABS: RHEUMATOID FACTOR QUANT < 3.5 IU/ML (<14)
[2023-06-20 23:07] LABS: ANA (HEP2) Negative (.); CYCLIC CITRULLINATED PEPTIDE 5 units (0-19); TESTOSTERONE FREE (DIRECT) 3.3 pg/mL (0.0-4.2)
== END ==
LOC: M LAB 11:12
PROVIDERS: ATTEND Physician Assistant
DX: E55.9 Vitamin D deficiency, unspecified (principal); Z13.29 Encounter for screening for other suspected endocrine disorder; Z82.61 Family history of arthritis

== ENCOUNTER → 2023-08-12 | Outpatient (CLI) | payer OTHER | LOC: M SOG 08:33 | PROVIDERS: ATTEND Physician Assistant | DX: S82.851D Displaced trimalleolar fracture of right lower leg, subsequent encounter for closed fracture with routine healing (principal) ==

== ENCOUNTER 2023-08-27 06:16 | Day surgery (SDC) | payer OTHER ==
[~2023-08-27] VITALS: Ht 170.2 cm; Wt 101.6 kg
[~2023-08-27 06:16] MED LIST changes: +METF-818 PO
[2023-08-27] MEDS ORDERED: IBUP-1022 PO (06:46)
[2023-08-27] MEDS ORDERED: MIDAZOLAM INJ 2MG/2ML VIAL As Ordered ONE (07:06)
[2023-08-27] MEDS ORDERED: propofoL 200 MG/20 ML VIAL As Ordered ONE (07:07)
[2023-08-27] MEDS ORDERED: fentaNYL 100 MCG/2 ML INJECTION As Ordered ONE (07:07)
[2023-08-27] MEDS ORDERED: LIDOCAINE 2% 100MG/5ML SDV (FOR ANES.) As Ordered ONE (07:07)
[2023-08-27] MEDS ORDERED: ROCURONIUM BROMIDE 50MG/5ML VIAL As Ordered ONE (07:07)
[2023-08-27] MEDS: LR 1,000 ML IV SCH (07:09)
[2023-08-27] MEDS: ceFAZolin SOD 2 GM in IV 1 EA IV ONE (07:32)
[2023-08-27] MEDS ORDERED: HYDROmorphone HCL 2MG/ML 1ML VIAL As Ordered ONE (08:11)
[2023-08-27] MEDS: BACITRACIN OINTMENT 30GM TUBE As Ordered ONE (08:40)
[2023-08-27] MEDS ORDERED: fentaNYL 100 MCG/2 ML INJECTION IV PRN (09:00)
[2023-08-27] MEDS ORDERED: LR 1,000 ML IV SCH (09:00)
[2023-08-27] MEDS ORDERED: ONDANSETRON 4MG 2ML VIAL IV PRN (09:00)
[2023-08-27] MEDS ORDERED: PERCOCET PO (09:07)
[2023-08-27] MEDS: diphenhydrAMINE 50MG/ML VIAL IV PRN (09:50)
[2023-08-27] MEDS: oxyCODONE 5MG TAB PO PRN (09:50)
[2023-08-27] MEDS: HYDROMORPHONE HCL 0.5 MG/ 0.5 ML SYRINGE IV PRN (09:51)
[2023-08-27] MEDS: NALBUPHINE HCL 1MG/0.1ML (100MG/10ML) MDV IV PRN (10:30)
[2023-08-27] MEDS: fentaNYL 100 MCG/2 ML INJECTION IV PRN (10:30)
[2023-08-27 11:48] VITALS: BP 131/76; TEMP 97.4; O2SAT 98
== END 2023-08-27 11:56 | disposition home or self-care (01) ==
LOC: M SDC 06:16
PROVIDERS: ATTEND Orthopaedic Surgery Hand Surgery
DX: T84.84XA Pain due to internal orthopedic prosthetic devices, implants and grafts, initial encounter (principal); Y79.2 Prosthetic and other implants, materials and accessory orthopedic devices associated with adverse incidents; I10 Essential (primary) hypertension; G93.2 Benign intracranial hypertension; G47.30 Sleep apnea, unspecified; E04.1 Nontoxic single thyroid nodule; Z79.899 Other long term (current) drug therapy; Z79.84 Long term (current) use of oral hypoglycemic drugs; G43.909 Migraine, unspecified, not intractable, without status migrainosus; K58.9 Irritable bowel syndrome, unspecified; F31.9 Bipolar disorder, unspecified; Z88.0 Allergy status to penicillin; Z88.8 Allergy status to other drugs, medicaments and biological substances; Z90.710 Acquired absence of both cervix and uterus; Z87.19 Personal history of other diseases of the digestive system
CPT/HCPCS: 20680; 76000; J0665; J0690; J1170; J1200; J2250; J2300; J3010

== ENCOUNTER → 2023-09-11 | Outpatient (CLI) | payer OTHER ==
[~2023-09-11] MED LIST changes: +IBUP-1022 PO; +PERCOCET PO
== END ==
LOC: M SOG 15:00
PROVIDERS: ATTEND Physician Assistant
DX: S82.851D Displaced trimalleolar fracture of right lower leg, subsequent encounter for closed fracture with routine healing (principal); Z53.9 Procedure and treatment not carried out, unspecified reason

== ENCOUNTER → 2023-09-11 | Outpatient (CLI) | payer OTHER | LOC: M SOG 12:55 | PROVIDERS: ATTEND Physician Assistant | DX: S82.851D Displaced trimalleolar fracture of right lower leg, subsequent encounter for closed fracture with routine healing (principal) ==

== ENCOUNTER → 2024-01-26 | Outpatient (CLI) | payer OTHER | LOC: M RAD 13:44 | PROVIDERS: ATTEND Neurological Surgery | DX: G93.2 Benign intracranial hypertension (principal); Z98.2 Presence of cerebrospinal fluid drainage device ==

== ENCOUNTER → 2024-04-17 | Outpatient (CLI) | payer OTHER ==
[~2024-04-17] MED LIST changes: -CYCL5TAB PO; +CYCL5TAB4 PO; +METF-1157 PO; -METF-818 PO
[2024-04-17 10:56] LABS: BASO # 0.1 10^3/uL (0.0-0.2); EOS # 0.2 10^3/uL (0.0-0.5); EOS % 2.3 % (0.0-3.0); HEMATOCRIT 43.5 % (36.0-47.0); HEMOGLOBIN 14.6 g/dl (12.0-15.5); LYMPH # 1.5 10^3/uL (1.5-5.0); LYMPH % 19.6 % (24.0-44.0); MEAN CORPUSCULAR HEMOGLOBIN 31.1 pg (27.0-33.0); MEAN CORPUSCULAR HGB CONC 33.6 g/dl (32.0-36.5); MEAN CORPUSCULAR VOLUME 92.6 fl (80.0-96.0); MONO # 0.4 10^3/uL (0.0-0.8); MONO % 5.6 % (2.0-8.0); NEUTROPHILS # 5.5 10^3/uL (1.5-8.5); NEUTROPHILS % 71.2 % (36.0-66.0); PLATELET COUNT, AUTOMATED 377 10^3/uL (150-450); WHITE BLOOD COUNT 7.7 10^3/uL (4.0-10.0)
[2024-04-17 11:01] LABS: ERYTHROCYTE SEDIMENTATION RATE 23 mm/hr (0-20)
[2024-04-17 11:18] LABS: C REACTIVE PROTEIN QUANTITATIV 0.79 MG/DL (<1.0)
[2024-04-17 11:20] LABS: ALBUMIN 3.8 G/DL (3.2-5.2); ALKALINE PHOSPHATASE 94 U/L (35-104); ALT/SGPT 30 U/L (7.0-40); AST/SGOT 18 U/L (<34); BILIRUBIN,TOTAL 0.5 MG/DL (0.3-1.2); BLOOD UREA NITROGEN 10 MG/DL (9-23); CALCIUM LEVEL 10.2 MG/DL (8.5-10.1); CARBON DIOXIDE LEVEL 25 MMOL/L (20-31); CHLORIDE LEVEL 109 MMOL/L (98-107); CHOLESTEROL LEVEL 195 MG/DL (<200); CHOLESTEROL RISK RATIO 4.39 (<5); CREATININE FOR GFR 0.69 MG/DL (0.55-1.30); GLOMERULAR FILTRATION RATE > 60.0 (>60); GLUCOSE, FASTING 84 MG/DL (60-100); HDL CHOLESTEROL 44.4 MG/DL (>40); LDL CHOLESTEROL 119.2 MG/DL (<100); NON-HDL-C 150.6 MG/DL; POTASSIUM SERUM 4.5 MMOL/L (3.5-5.1); SODIUM LEVEL 142 MMOL/L (136-145); THYROID STIMULATING HORMONE 1.172 uIU/ML (0.55-4.78); TOTAL 25(OH) VITAMIN D 21.5 NG/ML (20.0-100.0); TOTAL PROTEIN 7.3 G/DL (5.7-8.2); TRIGLYCERIDES LEVEL 157 MG/DL (<150)
[2024-04-17 11:21] LABS: FREE T4 1.06 NG/DL (0.89-1.76); VITAMIN B12 LEVEL 423 PG/ML (211-911)
[2024-04-20 14:43] LABS: ANA SCREEN, IFA NEGATIVE (NEGATIVE)
== END ==
LOC: M LAB 09:47
PROVIDERS: ATTEND Physician Assistant
DX: G43.009 Migraine without aura, not intractable, without status migrainosus (principal); E55.9 Vitamin D deficiency, unspecified; Z82.49 Family history of ischemic heart disease and other diseases of the circulatory system; Z82.61 Family history of arthritis

== ENCOUNTER → 2024-07-20 | Outpatient (REF) | payer OTHER | LOC: M LAB REF 16:54 | PROVIDERS: ATTEND Physician Assistant | DX: N30.80 Other cystitis without hematuria (principal) ==

== ENCOUNTER → 2024-08-28 | Outpatient (CLI) | payer OTHER | LOC: M LAB 11:22 | PROVIDERS: ATTEND Internal Medicine Gastroenterology | DX: R19.7 Diarrhea, unspecified (principal) ==

== ENCOUNTER → 2025-02-02 | Outpatient (CLI) | payer OTHER ==
[~2025-02-02] MED LIST changes: +AMIT10TA11 PO; -AMIT10TA7 PO; -IBUP-1022 PO; +IBUP600T42 PO
== END ==
LOC: M RAD 13:16
PROVIDERS: ATTEND Physician Assistant
DX: E04.1 Nontoxic single thyroid nodule (principal)

== ENCOUNTER → 2025-02-04 | Outpatient (CLI) | payer OTHER ==
[2025-02-04 09:39] LABS: BASO # 0.0 10^3/uL (0.0-0.2); BASO % 0.6 % (0.0-1.0); EOS # 0.2 10^3/uL (0.0-0.5); EOS % 2.5 % (0.0-3.0); LYMPH # 1.4 10^3/uL (1.5-5.0); LYMPH % 21.3 % (24.0-44.0); MONO # 0.5 10^3/uL (0.0-0.8); MONO % 6.9 % (2.0-8.0); NEUTROPHILS # 4.5 10^3/uL (1.5-8.5); NEUTROPHILS % 68.4 % (36.0-66.0); PLATELET COUNT, AUTOMATED 247 10^3/uL (150-450)
[2025-02-04 09:43] LABS: ERYTHROCYTE SEDIMENTATION RATE 10 mm/hr (0-20)
[2025-02-04 10:06] LABS: ALT/SGPT 16 U/L (7.0-40); AST/SGOT 19 U/L (<34); C REACTIVE PROTEIN QUANTITATIV 0.57 MG/DL (<1.0); CALCIUM LEVEL 9.3 MG/DL (8.5-10.1); CARBON DIOXIDE LEVEL 28 MMOL/L (20-31); CHLORIDE LEVEL 104 MMOL/L (98-107); CREATININE FOR GFR 0.79 MG/DL (0.55-1.30); GLOMERULAR FILTRATION RATE > 90.0 (>60); POTASSIUM SERUM 3.8 MMOL/L (3.5-5.1); SODIUM LEVEL 141 MMOL/L (136-145)
[2025-02-04 10:08] LABS: FREE T4 1.04 NG/DL (0.89-1.76); TOTAL 25(OH) VITAMIN D 18.7 NG/ML (20.0-100.0)
== END ==
LOC: M LAB 09:02
PROVIDERS: ATTEND Physician Assistant
DX: E04.1 Nontoxic single thyroid nodule (principal); G93.2 Benign intracranial hypertension; E55.9 Vitamin D deficiency, unspecified